=== PATIENT | male | born 1985 | race Caucasian/White ===

== ENCOUNTER 2020-03-16 17:15 | Emergency (ER) | payer SELFPAY ==
[2020-03-16 17:36] VITALS: BP 167/96; PULSE 79; RESP 16; TEMP 37.2; O2SAT 99
--- NOTE | 2020-03-16 17:52 | ED.UPPEXIN ---
HPI - Extremity Injury (Upper) General Chief Complaint: Extremity Injury, Upper Stated Complaint: injury Time Seen by Provider: 03/16/20 17:41 Source: patient and RN notes reviewed Mode of arrival: ambulatory Limitations: no limitations History of Present Illness HPI narrative: Patient presents today with an approximately 1 year history of pain at the base of his left thumb. 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 At the end of the workday, he does report some tingling to the thumb. He currently rates his pain 3/10, which increases with usage. He has not sought treatment prior to today. He is occasionally taking Tylenol at home for pain without relief. MD complaint: injury to: left and finger Related Data Allergies Allergy/AdvReac Type Severity Reaction Status Date / Time No Known Allergies Allergy Verified 03/16/20 17:39 Review of Systems Review of Systems: Narrative: CONSTITUTIONAL: Denies body aches, fever, chills, or sweats. EYES: Denies visual changes, redness, or discharge. ENT: Denies rhinorrhea, congestion, sore throat, or otalgia. CARDIOVASCULAR: Denies chest pain, palpitations, or edema. RESPIRATORY: Denies cough or dyspnea. GASTROINTESTINAL: Denies abdominal pain, nausea, vomiting, or diarrhea. GENITOURINARY: Denies dysuria or hematuria. SKIN: Denies rash, itching, or wounds. MUSCULOSKELETAL: Denies back pain, or myalgia.+ Pain in the left thumb NEUROLOGIC: Denies headache, numbness, tingling, or weakness. PSYCH: Denies depression or anxiety. PMFSH Social History Social History Gender identity (if verbalized by the patient): Male Comments At time of signature, I have reviewed and agree with nursing past medical, surgical, social and family history unless otherwise noted. Please see nursing chart for further information. There is no relevant family history pertinent to the presenting complaint Exam Narrative: Exam Narrative: GENERAL: Well-appearing, well-nourished, and in no acute distress. HEAD: Normocephalic, atraumatic. EYES: EOMI. No redness or drainage. Conjunctivae normal. ENT: Mucous membranes pink and moist. NECK: Normal AROM. CHEST: No respiratory distress. EXTREMITIES: Left first finger: Tenderness to the dorsum of the finger at the MCP. Pain increases with passive and active range of motion. Scant edema noted. No color change. No erythema or ecchymosis noted. Distal sensation intact. Capillary refill normal. SKIN: Warm, dry, no rash. Capillary refill normal. Normal skin turgor. NEURO: No focal deficits. Alert and oriented x3. Gait steady. PSYCH: Normal affect. No signs of depression or anxiety. Course Vital Signs Vital signs: Vital Signs Temperature 98.9 F 03/16/20 17:36 Pulse Rate 79 03/16/20 17:36 Respiratory Rate 16 03/16/20 17:36 Blood Pressure 167/96 H 03/16/20 17:36 Pulse Oximetry 99 03/16/20 17:36 Temperature 98.9 F 03/16/20 17:36 Pulse Rate 79 03/16/20 17:36 Respiratory Rate 16 03/16/20 17:36 Blood Pressure 167/96 H 03/16/20 17:36 Pulse Oximetry 99 03/16/20 17:36 Reviewed. Pt has been instructed to follow up with his PCP regarding his elevated blood pressure today. MDM - Extremity Injury (Upper) Differential Diagnosis Differential diagnosis: Likely other (Tendinitis, arthritis, ganglion cyst) Critical Care Time Critical Care Time Critical Care Time: No Discharge Plan Discharge Clinical Impression: Tendinitis of finger of left hand Patient Disposition: Home, Self-Care Condition: Stable Instructions: Tendinitis (ED) Additional Instructions: Your symptoms are likely due to tendinitis. Please take the prednisone as directed. Take Aleve or ibuprofen at home for pain and swelling. Follow-up with your
== END 2020-03-16 18:00 | disposition home or self-care (01) ==
PROVIDERS: Emergency Provider Nurse Practitioner
DX: M77.9 Enthesopathy, unspecified (principal)
CPT/HCPCS: 99213; G0463

== ENCOUNTER 2021-04-08 16:47 | Emergency (ER) | payer SELFPAY ==
[2021-04-08 16:57] VITALS: BP 136/85; PULSE 95; RESP 18; TEMP 36.8; O2SAT 100
--- NOTE | 2021-04-08 17:07 | ED.GENADULT ---
HPI - General Adult General Chief complaint: Dental/Oral Stated complaint: Roof mouth Swollen,Fever Time Seen by Provider: 04/08/21 17:07 Source: patient and RN notes reviewed Mode of arrival: ambulatory Limitations: no limitations History of Present Illness HPI narrative: 35-year-old male presents with complaints of LT upper dental and roof pain with swelling for the past 7 days. Felipe reports increasing swelling, pain, redness to roof of mouth, and tactile fever the last 24 hours. Hydrocodone (last 3 days ago) and Ibuprofen (last today) without relief. Denies any drainage. No jaw swelling. No neck swelling. No limitation with speaking or swallowing. Has history of dental caries. Has not seen a dentist recently. No dental trauma. Exacerbating factors consist of eating and drinking hot and spicy items. No relieving factors. No dentures or bridges. Tolerating liquids well. Remains active. The patient reports he have not been diagnosed with COVID-19. The patient reports he was tested for COVID-19 on 04/08/21 with NEGATIVE results. The patient reports he is not waiting for the results of a COVID-19 lab test. The patient reports he do not have chills, weakness, or fatigue. The patient reports he do not have a new or worsening cough or shortness of breath. Denies chest pain. The patient reports he do not have any rhinorrhea, congestion, loss of taste or smell, sore throat, nausea, vomiting, abdominal pain, and diarrhea. Denies recent traveling. Denies concerns for COVID-19 or exposures. At this time, patient is not suspected of having COVID-19. Some parts of this dictation were generated by voice recognition software and may contain typographical and/or grammatical inaccuracies. Related Data Allergies Allergy/AdvReac Type Severity Reaction Status Date / Time No Known Allergies Allergy Verified 04/08/21 16:54 Review of Systems Review of Systems: Narrative: CONSTITUTIONAL: Complains of tactile fever. Denies chills, sweats. EYES: Denies visual changes, redness, discharge. ENT: Denies rhinorrhea, congestion, sore throat, otalgia. Complains of LT upper dental and roof pain, swelling. CARDIOVASCULAR: Denies chest pain, palpitations, edema. RESPIRATORY: Denies dyspnea, wheezing, cough. GASTROINTESTINAL: Denies abdominal pain, nausea, vomiting, diarrhea. SKIN: Denies rash or itching. MUSCULOSKELETAL: Denies acute back pain, joint pain, or myalgia. NEUROLOGIC: Denies numbness or focal weakness. PSYCHIATRIC: Denies anxiety or depression. All systems reviewed & are unremarkable except as noted in HPI and below. 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 resulted in surgery per Felipe Cash Spontaneous pneumothorax Left lung-chest tube Surgical History Surgical History (Updated 04/08/21 @ 17:51 by MUMTAZ Mercado) History of chest tube placement History of tympanostomy X3 Family History Family History (Updated 04/08/21 @ 17:51 by MUMTAZ Mercado) Father , Committed suicide Depression Mother Hypertension Social History Social History (Updated 04/08/21 @ 17:52 by MUMTAZ Mercado) Smoking packs per day: 0.45 Smoking cigarettes per day: 9.0 Years smoked: 15 Smoking pack-years: 6.75 Smoking status: Current every day smoker Tobacco type: cigarettes Second hand tobacco smoke exposure: No Alcohol intake: current Substance use: current Substance use type: marijuana Living arrangements: with family Occupation/Education: occupation Gender identity (if verbalized by the patient): Male Sexual Orientation (if Verbalized by the Patient): Straight or Heterosexual Comments At time of signature, agree with nurse past medical, surgical, social, and family history. There is no relevant family history pertinent to the
== END 2021-04-08 17:38 | disposition home or self-care (01) ==
PROVIDERS: Emergency Provider Nurse Practitioner Family
DX: K05.10 Chronic gingivitis, plaque induced (principal); K02.9 Dental caries, unspecified; F17.210 Nicotine dependence, cigarettes, uncomplicated
CPT/HCPCS: 99213; G0463

== ENCOUNTER 2021-04-15 16:57 | Inpatient (IN) | payer SELFPAY ==
--- NOTE | ~2021-04-15 | US_ITS ---
EXAMINATION: US renal BI DATE: 04/17/2021 11:20 INDICATION: Acute kidney injury. TECHNIQUE: Multiple ultrasound grayscale images of the kidneys were obtained. COMPARISON: CT abdomen and pelvis 04/15/2021 FINDINGS: The right kidney measures 11.5 x 5.4 x 5.1 cm. The left kidney measures 11.3 x 5.0 x 7.0 cm. The kidn eys demonstrate increased parenchymal echogenicity. There is a 1.2 cm cyst in left kidney. There is n o hydronephrosis. The bladder is normal. IMPRESSION: 1. Increased renal parenchymal echogenicity, consistent with nonspecific nephropathy. Reviewed, dictated and finalized at location B. IMPRESSION: 1. Increased renal parenchymal echogenicity, consistent with nonspecific nephr opathy.
--- NOTE | ~2021-04-15 | XR_ITS ---
EXAMINATION: XR abdomen/kub 1V DATE: 04/17/2021 10:58 INDICATION: Abdominal bloating. C. difficile colitis. TECHNIQUE: A supine view of the abdomen on 2 radiographs was obtained. COMPARISON: CT abdomen and pelvis 04/15/2021 FINDINGS: There are no dilated loops of bowel. There is fold thickening in the colon at the splenic f lexure and in the sigmoid colon. There are phleboliths in the pelvis. IMPRESSION: 1. Fold thickening in the colon at the splenic flexure and in the sigmoid colon, consistent with coli tis. Reviewed, dictated and finalized at location A. IMPRESSION: 1. Fold thickening in the colon at the splenic flexure and in the sigmoid colon , consistent with colitis.
--- NOTE | ~2021-04-15 | CT_ITS ---
EXAMINATION: CT abdomen pelvis w con DATE: 04/15/2021 20:53 INDICATION: Left lower quadrant pain. TECHNIQUE: Computed tomography (CT) of the abdomen and pelvis was performed with 100 cc Omnipaque 350 intravenous contrast. The dose-length product was 289.68 mGy-cm. Automated exposure control and iter ative reconstruction technique were employed. COMPARISON: CT dated 10/20/2014 FINDINGS: There is paraseptal emphysema of the lingula. Otherwise, lung bases unremarkable. Heart siz e normal. No significant pleural or pericardial effusion. The liver, spleen, pancreas, adrenal glands are unremarkable. There are low-density lesions in both kidneys, most likely benign cysts. Gallbladd er is present. There is abnormal thickening of the descending and to a greater extent sigmoid colon a nd rectum, consistent with colitis. No obstruction. No free air or free fluid. Small hiatal hernia wi th mild thickening of the distal esophagus, suspicious for sequela of reflux esophagitis. IMPRESSION: 1. Abnormal thickening of the descending colon, sigmoid colon and rectum, consistent with colitis, mo st likely infectious or inflammatory. 2: Small hiatal hernia with thickening of the distal esophagus, suspicious for esophagitis. Reviewed, dictated and finalized at location A. IMPRESSION: 1. Abnormal thickening of the descending colon, sigmoid colon and rectum, consi stent with colitis, most likely infectious or inflammatory. 2: Small hiatal hernia with thickening of the distal esophagus, suspicious for esophagitis.
[2021-04-15 17:05] VITALS: BP 134/81; PULSE 110; RESP 18; TEMP 37.6; O2SAT 98
[2021-04-15 17:20] LABS: Basophils Absolute Auto 0.1 K/mm3 (0.0-0.1); Basophils Percent Auto 0.6 % (0.2-1.2); Eosinophils Absolute Auto 0.1 K/mm3 (0-0.3); Eosinophils Percent Auto 0.7 % (0-4.4); Hemoglobin 16.3 g/dL (14.0-18.0); Immature Granulocyte Percent A 0.5 % (0-0.5); Lymphocytes Absolute Auto 1.65 K/mm3 (0.9-3.2); Lymphocytes Percent Auto 8.9 % (18.3-44.2); Mean Corpuscular Hemoglobin 31.3 pg (26-34); Mean Corpuscular Volume 92.1 fl (80-100); Mean Platelet Volume 9.6 fl (7.4-10.4); Monocytes Absolute Auto 1.6 K/mm3 (0.1-0.6); Monocytes Percent Auto 8.3 % (2.6-8.5); Platelet Count Result 386 k/mm3 (150-375); Red Blood Count 5.21 M/mm3 (4.6-6.20); Red Cell Distribution Width 12.9 % (11.5-14.5); White Blood Count 18.6 K/mm3 (4.5-10.0)
[2021-04-15 17:32] LABS: Alanine Aminotransferase 17 U/L (4-50); Albumin Level 3.9 g/dL (3.5-5.1); Alkaline Phosphatase 74 U/L (38-126); Anion Gap 8 mmol/L (8-16); Aspartate Amino Transferase 34 U/L (17-59); Bilirubin,Total 0.4 mg/dL (0.2-1.3); Blood Urea Nitrogen 16 mg/dL (9-20); Calcium 9.3 mg/dL (8.4-10.2); Carbon Dioxide 24 mmol/L (22-30); Chloride 105 mmol/L (98-107); Estimated CRCL calculation 77 ml/min; Estimated Glomerular Filt Rate > 60; Glucose 112 mg/dL (75-110); Lipase 55 U/L (23-300); Potassium 4.2 mmol/L (3.4-5.0); Sodium 137 mmol/L (137-145)
[2021-04-15 18:04] LABS: Add Urine Microscopic? YES; Appearance Urine Cloudy (Clear); Bacteria Urine Trace /hpf; Bilirubin Urine 1+ (Negative); Blood Urine 3+ (Negative); Color Urine Amber (Yellow); Glucose Urine UA Negative (Negative); Ketones Urine Trace mg/dL (Negative); Leukocyte Esterase Ur Trace LEU/UL (Negative); Mucus Urine Heavy /lpf; Nitrate Urine Negative (Negative); Protein Urine 3+ mg/dL (Negative); RBC Urine >75 /hpf (0-2); Specific Grav Ur 1.038 (1.001-1.035); WBC Urine 51-75 /hpf
[2021-04-15 20:10] VITALS: BP 146/77; PULSE 97; RESP 20; O2SAT 100
[2021-04-15] MEDS: SODIUM CHLORIDE 0.9% IV 1,000 ML 999 ML IV CONT (20:38)
[2021-04-15 21:51] VITALS: BP 146/77; PULSE 99; RESP 18; O2SAT 100
[2021-04-15 22:13] VITALS: TEMP 39.4
--- NOTE | 2021-04-15 22:34 | ED.GENADULT ---
HPI - General Adult General Chief complaint: Abdominal Pain Stated complaint: fever Time Seen by Provider: 04/15/21 20:09 History of Present Illness HPI narrative: Patient is a 35-year-old male who presents ER with abdominal pain and fever. Ongoing over the last week and persistently worsening. Couple weeks ago patient injured the roof of his mouth while eating a piece of miller. He then developed some ulcerations as well as some acid reflux symptoms in his chest. He been started on some amoxicillin by an urgent care at that time. Reports that oral lesions healed on their own. He developed some severe lower abdominal pain over the last couple days and has pain with moving. Denies any diarrhea but has pressure going down into his buttock. No chest pain or chest pressure. No alleviating factors. Related Data Allergies Allergy/AdvReac Type Severity Reaction Status Date / Time No Known Allergies Allergy Verified 04/16/21 01:33 Review of Systems Review of Systems: All systems reviewed & are unremarkable except as noted in HPI and below Constitutional: Constitutional: Reports chills, Reports fever(s) and Denies weakness ENT: Denies nasal congestion and Denies sore throat Gastrointestinal: Gastrointestinal: Reports abdominal pain, Reports heartburn and Reports nausea Genitourinary: Genitourinary: Denies hematuria, Denies dysuria and Denies urinary frequency [facility] Past Medical History Medical History (Updated 04/16/21 @ 06:17 by Phil Mario MD) Ganglion cyst Left wrist Pyloric stenosis in pediatric patient Was surgical correction at 2 months of age Smoker Spontaneous pneumothorax Surgical History Surgical History (Updated 04/16/21 @ 06:15 by Phil Mario MD) History of chest tube placement Left chest History of partial colectomy History of tympanostomy X3 Family History Family History Father , Committed suicide Depression Mother Hypertension Social History Social History Smoking packs per day: 1 Smoking cigarettes per day: 20.0 Years smoked: 15 Smoking pack-years: 15.00 Smoking status: Former smoker Tobacco type: cigarettes Second hand tobacco smoke exposure: No Alcohol intake: current Drinks per week: 12 Substance use: current Substance use type: marijuana Last use: 04/05/2021 Gender identity (if verbalized by the patient): Male Spiritual care concerns: No Exam Narrative: Exam Narrative: GENERAL: Uncomfortable-appearing, well-nourished, and in no acute distress. HEAD: Normocephalic, atraumatic. ENT: Mucous membranes moist. No oral ulcerations. NECK: Supple. CHEST: Clear to auscultation. No respiratory distress. HEART: Tachycardic and regular. Normal peripheral pulses. ABDOMEN: Soft, tender to palpation diffusely with left lower quadrant guarding and moderate tenderness., nondistended, normal active bowel sounds. EXTREMITIES: Normal range of motion. No edema. SKIN: Warm, dry, no rash. NEURO: Alert and oriented x3. PSYCH: Normal mood and affect. Course Course Emergency Course: Admit to hospitalist service. IV antibiotics ordered. Morphine for pain. Patient verbalized understanding of diagnosis and treatment plan. Vital Signs Vital signs: Vital Signs Temperature 99.7 F H 04/15/21 17:05 Pulse Rate 110 H 04/15/21 17:05 Respiratory Rate 18 04/15/21 17:05 Blood Pressure 134/81 04/15/21 17:05 Pulse Oximetry 98 04/15/21 17:05 Temperature 98.4 F 04/16/21 05:40 Pulse Rate 105 H 04/16/21 05:40 Respiratory Rate 20 04/16/21 05:40 Blood Pressure 125/75 04/16/21 05:40 Pulse Oximetry 98 04/16/21 05:40 Medical Decision Making Vital Signs Vital Signs: Vital Signs Temperature 99.7 F H 04/15/21 17:05 Pulse Rate 110 H 04/15/21 17:05 Respiratory Rate 18 04/15/21 17:05 Blood Pressure 134/81 0
[2021-04-15] MEDS: PANTOPRAZOLE SODIUM IV 40 MG VIAL IV PUSH (22:45)
[2021-04-15] MEDS: MORPHINE SULFATE (*CRX) 4 MG/ML INJ IV PUSH (22:45)
[2021-04-15 23:52] VITALS: BP 140/89; PULSE 107; RESP 20; TEMP 39.6; O2SAT 100
[2021-04-16] VITALS (9 sets, daily range): BP systolic 102–125; BP diastolic 55–75; PULSE 101–109; RESP 16–22; TEMP 36.9–39.2; O2SAT 98–99
[2021-04-16] MEDS: SODIUM CHLORIDE 0.9% IV 1,000 ML 125 ML IV CONT ×4 (00:46→20:34)
[2021-04-16] MEDS: KETOROLAC 30 MG/ML VIAL (*BKC) IV PUSH (00:51)
[2021-04-16] MEDS: ONDANSETRON INJ 4 MG/2 ML VIAL IV PUSH ×5 (00:51→20:44)
--- NOTE | 2021-04-16 01:15 | PC.NURSE ---
This patient, Felipe Stanton, was admitted to 3 [facility] Surg Room 325-01. Patient/family oriented to hospital policies and general routines including ID bracelet, bed and alarms, visiting hours, pain management, procedures, bathroom and other care routines, personal items, smoking policy, room service/diet, and visiting hours. Information on how to activate the Rapid Response Team has been discussed. Patient/Family are encouraged to report perceived risks to care and to ask questions if they do not understand what they are told or what they should do.
[2021-04-16] MEDS: MORPHINE SULFATE (*CRX) 4 MG/ML INJ IV PUSH ×3 (02:14→08:37)
--- NOTE | 2021-04-16 02:47 | PM.IMHP ---
H&P: HPI History of Present Illness Date/Time: 04/16/21 03:30 Chief Complaint: Abdominal pain Narrative: 35-year-old previously healthy male who presented to the ER with abdominal pain for 2 weeks. The patient reports that approximately 2 weeks ago he began having generalized abdominal pain associated with vomiting and chills. His fever at home was a high as 101.5. When he initially developed vomiting he reported that he threw up some vague in in it traumatized the roof of his mouth and he had a ulceration on the roof of his mouth. He went to urgent care 8 days ago and was prescribed Augmentin. He reports that he still has several days of Augmentin to take but he he reports that the antibiotic seemed to make him even more nauseated. The antibiotics have not helped with his fevers or chills. He has not been able to eat or drink anything in the last 24 hours. He reports generalized abdominal pain that is worse with movement. He reports that he feels as if he is constipated and will go to the bathroom and strain. When he strains he passes loose brown stool. He only passes a small amount of stool. He reports that after he strains for a bit he will occasionally get out a small amount of blood with his stool. He reports that he has severe abdominal and rectal pain at the time she tries to have a bowel movement. After he has a bowel movement his pain will ease up briefly. He has having numerous stools a day. He denies any recent travel, camping or known ill contacts. The only antibiotics that he has taken were the ones that prescribed after his symptoms had started. He reports that he will occasionally have difficulty and have to strain to urinate. This is been a problem that is been ongoing for the last year or more. He denies any gross hematuria but has been told numerous times in the past that he has microscopic hematuria he reports that he has insurance but still cannot afford to go to specialist. His he reports that he will occasionally have a dysuria but again this is a longstanding issue. He has been tested multiple times for STDs. He reports that his ex-girlfriend was recently diagnosed with Trichomonas. He denies any IV drug use or high risk sexual activity. He has been tested for HIV in the past and has been found to be negative. He denies any sore throat, cough, congestion, chest pain or shortness of breath. He denies any family history of ulcer colitis or Crohn's. Review of Systems Review of Systems: Narrative: 12 systems were reviewed with pertinent positives and negatives per HPI. Except as documented in the HPI, all other systems were reviewed and are negative. [facility]LY [facility], [facility] Past Medical History Medical History Ganglion cyst Left wrist Smoker Spontaneous pneumothorax Surgical History Surgical History (Updated 04/16/21 @ 08:23 by Sheila Zambrano DO) History of chest tube placement Left chest History of partial colectomy (~2017) Due to hemorrhoid surgery with complications resulting in severe blood loss and blood transfusion History of tympanostomy X3 Pyloric stenosis in pediatric patient Myotomy at 2 months of age Family History Family History Father , Committed suicide Depression Mother Hypertension Social History Social History (Updated 04/16/21 @ 08:28 by Sheila Zambrano DO) Social History: He is single and lives alone. His ex-girlfriend recently moved nearby and they have a 9-year-old daughter in common. 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 He drinks a 12 pack of beer a week. He has smoked a pack of cigarettes per day since the age of 20. He will occasionally snort cocaine. He will occasionally smoke marijuana. He denies any IV drug use. He does not have a primary care physician. He does not have advanced directives in place. Smoking packs per day: 1 Smoking cigarettes per
[2021-04-16] MEDS: NICOTINE (*PBKC) 14 MG PATCH 1 PATCH TRANSDERM (04:42)
[2021-04-16 06:13] LABS: Hematocrit 44.4 % (42.0-52.0); Hemoglobin 14.7 g/dL (14.0-18.0); Mean Corpuscular HGB Conc 33.1 g/dl (32-36); Mean Corpuscular Hemoglobin 30.4 pg (26-34); Mean Corpuscular Volume 91.9 fl (80-100); Mean Platelet Volume 10.2 fl (7.4-10.4); Platelet Count Result 314 k/mm3 (150-375); Red Blood Count 4.83 M/mm3 (4.6-6.20); Red Cell Distribution Width 12.9 % (11.5-14.5); White Blood Count 16.5 K/mm3 (4.5-10.0)
[2021-04-16 06:24] LABS: Anion Gap 7 mmol/L (8-16); Blood Urea Nitrogen 15 mg/dL (9-20); Calcium 8.6 mg/dL (8.4-10.2); Carbon Dioxide 22 mmol/L (22-30); Chloride 105 mmol/L (98-107); Estimated CRCL calculation 66 ml/min; Estimated Glomerular Filt Rate 58; Glucose 105 mg/dL (75-110); Potassium 3.9 mmol/L (3.4-5.0); Sodium 134 mmol/L (137-145)
[2021-04-16 06:52] LABS: Band Neutrophils Percent 9 % (0-6); Eosinophils Absolute Manual 0.16 K/mm3 (0.02-0.5); Eosinophils Percent Manual 1 % (0-4); Lymphocytes Absolute Manual 1.32 K/mm3 (1.1-4.5); Monocytes Absolute Manual 1.48 K/mm3 (0.1-0.90); Monocytes Percent Manual 9 % (3-9); Neutrophils Absolute Manual 13.53 K/mm3 (1.3-6.7); Neutrophils Percent Manual 73 % (46-73); Platelet Estimate Adequate (Adequate); Total Cells Counted 100
--- NOTE | 2021-04-16 09:03 | PM.IMPN ---
Progress Note: A&P Assessment and Plan (1) Sepsis: Qualifiers: Sepsis acute organ dysfunction status: without acute organ dysfunction Sepsis type: sepsis due to unspecified organism Qualified Code(s): A41.9 - Sepsis, unspecified organism Code(s): A41.9 - Sepsis, unspecified organism Status: Acute Assessment and Plan: Sepsis present on admission with fever, tachycardia, and leukocytosis. Sepsis likely due to colitis and or urinary tract infection. Colitis is much more likely than UTI. The patient received fluid resuscitation in the ER and continued IV fluids 125 cc/hr. Blood cultures and urine cultures are pending. Stool cultures were obtained, Cryptosporidium, Giardia and C diff. Patient has been initially started on empiric antibiotic therapy with Zosyn. Scheduled Tylenol Q6hr, and Ibuprofen as needed for fever. He has Manilla vs morphine available as needed for pain. Continue monitoring vital signs. (2) Bacteriuria with pyuria: Code(s): R82.71 - Bacteriuria; R82.81 - Pyuria Status: Acute Assessment and Plan: Patient has exposure to Trichamonas from a recent sexual partner that he was not treated for. Could have Urethritis from Trich vs UTI. Pending urine cultures and trich testing. Will start Metronidazole 500 mg Q12hrs for 7 days. Continue IV Zosyn for Colitis and coverage for UTI Continue monitoring. (3) Colitis: Code(s): K52.9 - Noninfective gastroenteritis and colitis, unspecified Status: Acute Assessment and Plan: Given the presence of report of oral lesions, esophagitis, and colitis is certainly possible that the patient may have inflammatory bowel disease/Crohn's. However, given his acute presentation infectious colitis is more likely with Esophagitis from vomiting. Stool cultures pending, patient was recently on Augmentin, could have caused C. diff Continue IV Protonix BID for esophagitis. Given the severity of the patient's pain will slowly advance diet as tolerated. GI Consultation will be place for further evaluation, recommendations Continue monitoring. GIs input will be appreciated. (4) Esophagitis: Code(s): K20.90 - Esophagitis, unspecified without bleeding Status: Acute Assessment and Plan: Could be from vomiting throughout the last 1-2 weeks causing esophagitis vs underlying Crohn's. On IV PPI BID. GI Consultation will be place for further evaluation, recommendations Continue monitoring. GIs input will be appreciated. (5) Hematochezia: Code(s): K92.1 - Melena Status: Acute Assessment and Plan: Patient had episode of vomiting today and saw some bright red blood. He states he has not had any blood in his vomit over the last 1-2 weeks since he has been vomiting. He did get a dose of Lovenox at 0200 this morning. Hematochezia could be due to Lovenox and acute esophagitis. Will discontinue Lovenox at this time and start SCDs for DVT prophylaxis (6) Exposure to trichomonas: Code(s): Z20.2 - Contact with and (suspected) exposure to infections with a predominantly sexual mode of transmission Status: Acute Assessment and Plan: Getting Trich testing. Will start Treatment of Trich with Metronidazole 500 mg Q12hrs for 7 days given exposure. Time Spent With Patient Time with patient: 25 - 35 minutes Subjective Date/time seen: 04/16/21 09:03 Interval history: Date of service 04/16/21: The patient reports having a fever right now, having body aches, fatigue. He still having intermittent abdominal pain, watery diarrhea. He had nausea this morning with an episode of vomiting after drinking some orange juice. He does report a headache but believes is due to his fever. Does report some neck stiffness, but states he was sleeping in a weird position. He is able to turn his head in both directions and touch his chin to his chest without any issues
[2021-04-16] MEDS: ACETAMINOPHEN 325 MG TABLET 650 MG PO ×2 (09:15→21:34)
[2021-04-16] MEDS: IBUPROFEN 600 MG TABLET PO ×2 (10:03→16:44)
[2021-04-16] MEDS: metroNIDAZOLE 250 MG TABLET 500 MG PO ×2 (10:55→20:31)
[2021-04-16] MEDS: PANTOPRAZOLE SODIUM IV 40 MG VIAL IV PUSH ×2 (10:56→20:31)
[2021-04-16 13:05] LABS: Hematocrit 44.6 % (42.0-52.0); Hemoglobin 15.3 g/dL (14.0-18.0)
[2021-04-16 13:15] LABS: Anion Gap 8 mmol/L (8-16); Blood Urea Nitrogen 17 mg/dL (9-20); Calcium 8.7 mg/dL (8.4-10.2); Carbon Dioxide 22 mmol/L (22-30); Chloride 104 mmol/L (98-107); Estimated CRCL calculation 58 ml/min; Estimated Glomerular Filt Rate 49; Glucose 121 mg/dL (75-110); Potassium 4.3 mmol/L (3.4-5.0); Sodium 134 mmol/L (137-145)
[2021-04-16] MEDS: MORPHINE SULFATE (*CRX) 2 MG/ML INJ IV PUSH ×2 (16:48→20:44)
[2021-04-17] MEDS: MORPHINE SULFATE (*CRX) 2 MG/ML INJ IV PUSH ×6 (00:50→22:20)
[2021-04-17] MEDS: ONDANSETRON INJ 4 MG/2 ML VIAL IV PUSH ×2 (00:51→04:22)
[2021-04-17] MEDS: HYDROcodone/acetaminophen (*CRX) 5-325 MG TABLET 1 TAB PO ×4 (04:22→19:42)
[2021-04-17] MEDS: SODIUM CHLORIDE 0.9% IV 1,000 ML 125 ML IV CONT (05:18)
[2021-04-17 05:39] LABS: Hematocrit 39.8 % (42.0-52.0); Hemoglobin 13.6 g/dL (14.0-18.0); Mean Corpuscular HGB Conc 34.2 g/dl (32-36); Mean Corpuscular Hemoglobin 30.6 pg (26-34); Mean Corpuscular Volume 89.6 fl (80-100); Platelet Count Result 299 k/mm3 (150-375); Red Blood Count 4.44 M/mm3 (4.6-6.20); Red Cell Distribution Width 12.8 % (11.5-14.5); White Blood Count 17.5 K/mm3 (4.5-10.0)
[2021-04-17 05:49] LABS: Anion Gap 7 mmol/L (8-16); Blood Urea Nitrogen 19 mg/dL (9-20); Carbon Dioxide 19 mmol/L (22-30); Chloride 107 mmol/L (98-107); Estimated CRCL calculation 58 ml/min; Estimated Glomerular Filt Rate 49; Glucose 114 mg/dL (75-110); Potassium 3.9 mmol/L (3.4-5.0); Sodium 133 mmol/L (137-145)
[2021-04-17 06:00] VITALS: BP 103/56; PULSE 53; RESP 22; TEMP 36.8; O2SAT 96
[2021-04-17 06:24] LABS: Band Neutrophils Percent 9 % (0-6); Lymphocytes Absolute Manual 3.85 K/mm3 (1.1-4.5); Monocytes Absolute Manual 2.45 K/mm3 (0.1-0.90); Monocytes Percent Manual 14 % (3-9); Neutrophils Percent Manual 55 % (46-73); Platelet Estimate Adequate (Adequate); Total Cells Counted 100
[2021-04-17] MEDS: NICOTINE (*PBKC) 14 MG PATCH 1 PATCH TRANSDERM (08:04)
[2021-04-17] MEDS: PANTOPRAZOLE SODIUM IV 40 MG VIAL IV PUSH ×2 (08:05→21:20)
[2021-04-17] MEDS: metroNIDAZOLE 250 MG TABLET 500 MG PO (08:05)
[2021-04-17 09:20] VITALS: O2SAT 96
[2021-04-17] MEDS: ACETAMINOPHEN 325 MG TABLET 650 MG PO ×3 (11:44→23:38)
--- NOTE | 2021-04-17 11:58 | PM.IMPN ---
Progress Note: A&P Assessment and Plan (1) Sepsis: Qualifiers: Sepsis type: sepsis due to unspecified organism Sepsis acute organ dysfunction status: without acute organ dysfunction Qualified Code(s): A41.9 - Sepsis, unspecified organism Code(s): A41.9 - Sepsis, unspecified organism Status: Acute Assessment and Plan: Sepsis present on admission with fever, tachycardia, and leukocytosis. Sepsis likely due to colitis and or urinary tract infection. Colitis is much more likely than UTI. The patient received fluid resuscitation in the ER and continued IV fluids 75 cc/hr. Blood cultures negative to date Urine culture shows no growth Positive C diff, IV antibiotics were switched- D/C IV Zosyn (04/17/21), PO Vancomycin 500 mg Q6hrs and IV Metronidazole 500 mg IV Q8hrs for severe C. diff colitis infection Stool cultures were obtained and pending, Cryptosporidium, Giardia and etc Fevers trending down, 1644 04/16/21 was 101.6F, HR nontachycardic, low normal BP, normal oxygenation and respiration rate Scheduled Tylenol Q6hr, and Ibuprofen as needed for fever. He has [place] vs morphine available as needed for pain. Continue monitoring vital signs. (2) Colitis: Code(s): K52.9 - Noninfective gastroenteritis and colitis, unspecified Status: Acute Assessment and Plan: C. diff colitis. Was recently on Augmentin, but could also have inflammatory bowel disease/Crohn's. However, given his acute presentation infectious colitis is more likely with Esophagitis from vomiting. Positive C diff Stool cultures pending Continue IV Protonix BID for esophagitis. Given the severity of the patient's pain will slowly advance diet as tolerated. GI Consultation will be place for further evaluation, recommendations Continue monitoring. GIs input will be appreciated. (3) Bacteriuria with pyuria: Code(s): R82.71 - Bacteriuria; R82.81 - Pyuria Status: Acute Assessment and Plan: Urine culture negative, no UTI (4) Esophagitis: Code(s): K20.90 - Esophagitis, unspecified without bleeding Status: Acute Assessment and Plan: Could be from vomiting throughout the last 1-2 weeks causing esophagitis vs underlying Crohn's. On IV PPI BID. GI Consultation will be place for further evaluation, recommendations Continue monitoring. GIs input will be appreciated. (5) Exposure to trichomonas: Code(s): Z20.2 - Contact with and (suspected) exposure to infections with a predominantly sexual mode of transmission Status: Acute Assessment and Plan: Patient has exposure to Trichamonas from a recent sexual partner that he was not treated for. Could have Urethritis from Trich vs UTI. Urine cultures negative Trich testing, pending Switched from PO Metroniazole for Trich to IV Metronidazole 500 mg Q8hrs for treatment of severe C. diff infection. Will treat for trich as well Continue monitoring. (6) Symptom of blood in vomit: Code(s): K92.0 - Hematemesis Status: Acute Assessment and Plan: Patient had episode of vomiting 04/16/21 and saw some bright red blood. He states he has not had any blood in his vomit over the last 1-2 weeks since he has been vomiting. He did get a dose of Lovenox at 0200 this morning. Hematochezia could be due to Lovenox and acute esophagitis. Will discontinue Lovenox at this time and start SCDs for DVT prophylaxis No more blood seen. Resolved. Subjective Date/time seen: 04/17/21 11:58 Interval history: Date of service 04/17/21: The patient states he is feeling only slightly better. Still having a watery bowel movement once an hour. No improvement of that at this time. Patient does not have a fever right now, but states he has been having them but it is improved from when he came in. He has been drinking, not eating to much. He has been hungry, but is scared to eat since he vomited yesterday
[2021-04-17 14:00] VITALS: BP 117/71; PULSE 94; RESP 16; TEMP 36.4; O2SAT 99
[2021-04-17] MEDS: VANCOMYCIN ORAL 500 MG/10 ML SYRUP PO ×2 (14:17→18:52)
[2021-04-17] MEDS: SODIUM CHLORIDE 0.9% IV 1,000 ML 75 ML IV CONT (14:17)
[2021-04-17] MEDS: metroNIDAZOLE 500 MG/ISO 100ML 500 MG/100 ML BAG 100 MG IVPB ×2 (14:19→21:19)
--- NOTE | 2021-04-17 16:52 | WPDGICN ---
Assessment and Plan Assessment and plan (1) Clostridium difficile colitis: Code(s): A04.72 - Enterocolitis due to Clostridium difficile, not specified as recurrent Status: Acute Assessment and Plan: new diagnosis and can explain symptom continue with iv flagyl and oral vancomycin, avoid other systemic antibiotics he recently used augmentin (2) Abdominal pain: Code(s): R10.9 - Unspecified abdominal pain Status: Acute Assessment and Plan: liquid diet for now continue to monitor (3) Esophagitis: Code(s): K20.90 - Esophagitis, unspecified without bleeding Status: Acute Assessment and Plan: probably from ongoing n/v in setting of severe c diff colitis supportive care (4) Nausea and vomiting in adult: Code(s): R11.2 - Nausea with vomiting, unspecified Status: Acute Assessment and Plan: antiemetic prn (5) Sepsis: Qualifiers: Sepsis type: sepsis due to unspecified organism Sepsis acute organ dysfunction status: without acute organ dysfunction Qualified Code(s): A41.9 - Sepsis, unspecified organism Code(s): A41.9 - Sepsis, unspecified organism Status: Acute GI Consult Note Consult date/time: 04/17/21 16:52 Reason for consult: n/v, C diff colitis HPI: Felipe Stanton is a 35 year old male healthy man who about 3 weeks ago completed augmentin that was prescribed at urgent care for soreness in mouth . Last few days ago started with progressive lower abdominal pain with fever as high as 101.5 then intractable nausea and vomiting for 2 days, unable to eat much of anything with loss of appetite and also diarrhea. CT scan a/p reviewed that showed colitis and possible esophagitis. Stool positive for C diff and started on vancomycin and flagyl. Had leukocytosis wbc 17k and renal failure with creat 1.7. Never had scopes or similar infection. Review of Systems Constitutional: Constitutional: Reports chills Comments: fever Eyes: Eyes: Denies blurry vision ENT: Reports Normal hearing present Cardiovascular: Cardiovascular: Denies chest pain Respiratory: Respiratory: Denies dyspnea Gastrointestinal: Gastrointestinal: Reports abdominal pain, Reports diarrhea, Reports nausea and Reports vomiting Genitourinary: Genitourinary: Denies hematuria Musculoskeletal: Musculoskeletal: Denies neck pain Integumentary/Breasts: Skin/Breast: Denies dry skin Neurologic: Denies numbness Psychiatric: Psychiatric: Reports no additional psychiatric complaints PMFSH Past Medical History Medical History (Updated 04/17/21 @ 16:57 by Juan Jose Smith MD) Abdominal pain Clostridium difficile colitis Ganglion cyst Left wrist Nausea and vomiting in adult Smoker Spontaneous pneumothorax Surgical History Surgical History (Updated 04/16/21 @ 08:23 by Sheila Zambrano DO) History of chest tube placement Left chest History of partial colectomy (~2017) Due to hemorrhoid surgery with complications resulting in severe blood loss and blood transfusion History of tympanostomy X3 Pyloric stenosis in pediatric patient Myotomy at 2 months of age Family History Family History Father , Committed suicide Depression Mother Hypertension Social History Social History (Updated 04/16/21 @ 08:28 by hSeila Zambrano DO) Social History: He is single and lives alone. His ex-girlfriend recently moved nearby and they have a 9-year-old daughter in common. 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 He drinks a 12 pack of beer a week. He has smoked a pack of cigarettes per day since the age of 20. He will occasionally snort cocaine. He will occasionally smoke marijuana. He denies any IV drug use. He does not have a primary care physician. He does not have advanced directives in place. Smoking packs per day: 1 Smoking cigarettes per day: 20.0 Years smoked: 15 Smo
[2021-04-17 22:00] VITALS: BP 117/66; PULSE 89; RESP 16; TEMP 36.4; O2SAT 96
[2021-04-18] MEDS: VANCOMYCIN ORAL 500 MG/10 ML SYRUP PO ×5 (00:18→23:25)
[2021-04-18] MEDS: MORPHINE SULFATE (*CRX) 2 MG/ML INJ IV PUSH ×2 (03:10→06:07)
[2021-04-18] MEDS: SODIUM CHLORIDE 0.9% IV 1,000 ML 75 ML IV CONT ×2 (03:23→18:00)
[2021-04-18 06:00] VITALS: BP 119/63; PULSE 85; RESP 18; TEMP 37.2; O2SAT 100
[2021-04-18 06:05] LABS: Hematocrit 37.6 % (42.0-52.0); Hemoglobin 12.6 g/dL (14.0-18.0); Mean Corpuscular HGB Conc 33.5 g/dl (32-36); Mean Corpuscular Hemoglobin 30.7 pg (26-34); Mean Corpuscular Volume 91.5 fl (80-100); Mean Platelet Volume 9.7 fl (7.4-10.4); Platelet Count Result 292 k/mm3 (150-375); Red Blood Count 4.11 M/mm3 (4.6-6.20); Red Cell Distribution Width 13.2 % (11.5-14.5); White Blood Count 17.8 K/mm3 (4.5-10.0)
[2021-04-18] MEDS: ACETAMINOPHEN 325 MG TABLET 650 MG PO (06:07)
[2021-04-18] MEDS: ONDANSETRON INJ 4 MG/2 ML VIAL IV PUSH (06:18)
[2021-04-18 06:30] LABS: Anion Gap 5 mmol/L (8-16); Blood Urea Nitrogen 12 mg/dL (9-20); Calcium 8.2 mg/dL (8.4-10.2); Carbon Dioxide 24 mmol/L (22-30); Chloride 107 mmol/L (98-107); Estimated CRCL calculation 77 ml/min; Estimated Glomerular Filt Rate > 60; Glucose 102 mg/dL (75-110); Potassium 3.6 mmol/L (3.4-5.0); Sodium 136 mmol/L (137-145)
[2021-04-18 06:38] LABS: Band Neutrophils Percent 1 % (0-6); Eosinophils Absolute Manual 0.17 K/mm3 (0.02-0.5); Eosinophils Percent Manual 1 % (0-4); Lymphocytes Absolute Manual 2.49 K/mm3 (1.1-4.5); Monocytes Absolute Manual 0.89 K/mm3 (0.1-0.90); Monocytes Percent Manual 5 % (3-9); Neutrophils Absolute Manual 14.24 K/mm3 (1.3-6.7); Neutrophils Percent Manual 79 % (46-73); Total Cells Counted 100
[2021-04-18 06:40] LABS: Platelet Estimate Adequate (Adequate)
[2021-04-18] MEDS: metroNIDAZOLE 500 MG/ISO 100ML 500 MG/100 ML BAG 100 MG IVPB ×3 (07:39→21:03)
[2021-04-18] MEDS: PANTOPRAZOLE SODIUM IV 40 MG VIAL IV PUSH ×2 (07:57→21:03)
[2021-04-18] MEDS: NICOTINE (*PBKC) 14 MG PATCH 1 PATCH TRANSDERM (07:57)
--- NOTE | 2021-04-18 09:59 | PM.IMPN ---
Progress Note: A&P Assessment and Plan (1) Clostridium difficile colitis: Code(s): A04.72 - Enterocolitis due to Clostridium difficile, not specified as recurrent Status: Acute Assessment and Plan: Stool cultures feel that he is positive for C diff which is consistent with his symptoms as he was recently on Augmentin -continue oral vancomycin. He is also on Flagyl due to Trichomonas -advanced diet as tolerated. He is unhappy with his liquid diet and would like to advance to something different. I will try low-fiber diet today. I discussed if his abdominal pain worsens with this, we will have to go back to a liquid diet -GI consulted -WBC 17.8, hopefully this will start to improve. If it doesn't improve with vanc (started 04/17/21), may consider Dificid (2) Sepsis: Qualifiers: Sepsis type: sepsis due to unspecified organism Sepsis acute organ dysfunction status: without acute organ dysfunction Qualified Code(s): A41.9 - Sepsis, unspecified organism Code(s): A41.9 - Sepsis, unspecified organism Status: Acute Assessment and Plan: Improving. Present on admission with fever, tachycardia, and leukocytosis. -Sepsis likely due to colitis above -continue IV fluids as the patient has been having multiple episodes of diarrhea and his creatinine improved with IV fluids overnight -Blood cultures negative to date -continue oral vancomycin for C diff Positive C diff, IV antibiotics were switched- (Zosyn discontinued 04/17/2021) -continue Tylenol as needed -He has [place] vs morphine available as needed for pain as well but try to avoid narcotics if possible (3) Bacteriuria with pyuria: Code(s): R82.71 - Bacteriuria; R82.81 - Pyuria Status: Acute Assessment and Plan: Urine culture negative, no UTI (4) Esophagitis: Code(s): K20.90 - Esophagitis, unspecified without bleeding Status: Acute Assessment and Plan: Could be from vomiting throughout the last 1-2 weeks causing esophagitis vs underlying Crohn's. -On IV PPI BID. -follow-up with GI (5) Exposure to trichomonas: Code(s): Z20.2 - Contact with and (suspected) exposure to infections with a predominantly sexual mode of transmission Status: Acute Assessment and Plan: Patient has exposure to Trichamonas from a recent sexual partner that he was not treated for. -Urine cultures negative -Trich testing is pending (6) Symptom of blood in vomit: Code(s): K92.0 - Hematemesis Status: Acute Assessment and Plan: Patient had episode of vomiting 04/16/21 and saw some bright red blood. He states he has not had any blood in his vomit over the last 1-2 weeks since he has been vomiting. He did get a dose of Lovenox during that time. Hematochezia could be due to Lovenox and acute esophagitis. -could be Julieta-Silva tear or gastritis from infection. Follow-up with GI (7) LESLEY (acute kidney injury): Code(s): N17.9 - Acute kidney failure, unspecified Status: Acute Assessment and Plan: Patient's creatinine was elevated yesterday likely due to dehydration and it is now back in normal limits -will continue IV fluids at this time -ultrasound of the kidneys reviewed Time Spent With Patient Time with patient: 25 - 35 minutes Subjective Date/time seen: 04/18/21 09:59 Interval history: Pt is a 35-year-old male here for C diff colitis. Patient was seen today and continues to have abdominal pain and diarrhea. He states he has had liquid diarrhea every hour on the hour overnight. He says he thinks it is getting a little more thick but it still very liquidy. He has no lightheadedness, dizziness, chest pain, fevers, chills, dysuria, or leg swelling. He had some nausea this morning but would like to try more than liquids. Review of Systems Review of Systems: All systems reviewed & are unremarkable except as noted in HPI and
[2021-04-18 14:00] VITALS: BP 112/57; PULSE 76; RESP 20; TEMP 36.6; O2SAT 100
[2021-04-18] MEDS: HYDROcodone/acetaminophen (*CRX) 5-325 MG TABLET 1 TAB PO ×2 (14:42→20:56)
--- NOTE | 2021-04-18 18:15 | WPDGIPROGNO ---
Progress Note: A&P Assessment and Plan (1) Sepsis: Qualifiers: Sepsis type: sepsis due to unspecified organism Sepsis acute organ dysfunction status: without acute organ dysfunction Qualified Code(s): A41.9 - Sepsis, unspecified organism Code(s): A41.9 - Sepsis, unspecified organism Status: Acute Assessment and Plan: from severe c diff colitis today is feeling better but still with leukocytosis (2) Clostridium difficile colitis: Code(s): A04.72 - Enterocolitis due to Clostridium difficile, not specified as recurrent Status: Acute Assessment and Plan: on oral vanco and iv flagyl probitiocs as outpatient (3) LESLEY (acute kidney injury): Code(s): N17.9 - Acute kidney failure, unspecified Status: Acute Assessment and Plan: resolved today after medical treatment (4) Nausea and vomiting in adult: Code(s): R11.2 - Nausea with vomiting, unspecified Status: Acute Assessment and Plan: resolved (5) Esophagitis: Code(s): K20.90 - Esophagitis, unspecified without bleeding Status: Acute (6) Abdominal pain: Code(s): R10.9 - Unspecified abdominal pain Status: Acute Subjective Date/time seen: 04/18/21 18:15 Interval history: abdominal pain slowly getting better and tolerating diet, also less diarrhea today Review of Systems Review of Systems: All systems reviewed & are unremarkable except as noted in HPI and below Exam Const: General: comfortable and no acute distress HENMT: General nose exam: Normal nares present Eyes: General: appearance normal, both eyes and all related structures Neck: Neck: supple Resp: Auscultation: clear to auscultation bilaterally Cardio: Rate: regular rate GI: GI Palp: Yes Soft to palpation and No Guarding due to palpation present (GI) Auscultation: normal bowel sounds Other: less tender today Skin: General skin exam: normal color Neuro: Speech: normal speech Motor exam (neuro): Normal motor muscle tone present throughout Extrem: General: normal to inspection Objective Data Vital Signs Vital Signs: Vital Signs - 24 hr 04/17/21 22:00 04/18/21 06:00 04/18/21 14:00 Temperature 97.5 F L 99 F 97.9 F Pulse Rate 89 85 76 Respiratory Rate 16 18 20 Blood Pressure 117/66 119/63 112/57 L Pulse Oximetry 96 100 100 Intake/Output Intake/Output: Intake & Output 04/15/21 04/16/21 04/17/21 04/18/21 23:59 23:59 23:59 23:59 Intake Total 1100 5080 2878 2400 Output Total 350 Balance 1100 4730 2878 2400 Meds/Results Medications: Active Medications Generic Name Dose Route Start Last Admin Trade Name Freq PRN Reason Stop Dose Admin Acetaminophen 650 mg 04/18/21 10:35 Acetaminophen 325 Mg Tablet PO Q6H PRN Pain 1-3 Hydrocodone Bitart/Acetaminophen 1 tab 04/15/21 23:31 04/18/21 14:42 Hydrocodone/Acetaminophen (*Crx) 5-325 Mg Tablet PO 1 tab Q4H PRN Administration Pain Rated 4-6 Sodium Chloride 1,000 mls @ 125 mls/hr 04/15/21 23:35 04/18/21 18:00 Normal Saline Iv IV CONT 75 mls/hr .Q8H KATIE Administration Metronidazole 500 mg in 100 mls @ 100 mls/hr 04/17/21 14:00 04/18/21 14:43 Flagyl 500 Mg/Iso Soln 100 Ml IVPB 100 mls/hr Q8HR KATIE Administration Morphine Sulfate 2 mg 04/16/21 09:05 04/18/21 06:07 Morphine Sulfate (*Crx) 2 Mg/Ml Inj IV PUSH 2 mg Q2H PRN Administration Pain Rated 7-10 Nicotine 1 patch 04/16/21 04:35 04/18/21 07:57 Nicotine (*Pbkc) 14 Mg Patch TRANSDERM 1 patch QAM KATIE Administration Ondansetron HCl 4 mg 04/15/21 23:31 04/18/21 06:18 Ondansetron Inj 4 Mg/2 Ml Vial IV PUSH 4 mg Q4H PRN Administration Nausea Pantoprazole Sodium 40 mg 04/16/21 09:00 04/18/21 07:57 Pantoprazole Sodium Iv 40 Mg Vial IV PUSH 40 mg Q12HR KATIE Administration Phenyleph/Shark Oil/Min Oil/Petrol 1 applic 04/18/21 10:38 Phenyleph/Mineral Oil/Petrolat Ointment 5
[2021-04-18] MEDS: PHENYLEPH/MINERAL OIL/PETROLAT OINTMENT 57 GM 1 APPLIC RECTAL (21:02)
[2021-04-18 21:50] VITALS: BP 131/72; PULSE 104; RESP 16; TEMP 36.9; O2SAT 100
[2021-04-18] MEDS: ALPRAZolam (*CRX) 0.25 MG TABLET PO (21:55)
[2021-04-19] MEDS: metroNIDAZOLE 500 MG/ISO 100ML 500 MG/100 ML BAG 100 MG IVPB ×3 (05:25→21:55)
[2021-04-19] MEDS: HYDROcodone/acetaminophen (*CRX) 5-325 MG TABLET 1 TAB PO ×3 (05:26→22:00)
[2021-04-19] MEDS: VANCOMYCIN ORAL 500 MG/10 ML SYRUP PO ×4 (05:26→23:09)
[2021-04-19 06:00] VITALS: BP 118/80; PULSE 86; RESP 16; TEMP 35.8; O2SAT 98
[2021-04-19 06:04] LABS: Basophils Absolute Auto 0.1 K/mm3 (0.0-0.1); Basophils Percent Auto 0.5 % (0.2-1.2); Eosinophils Absolute Auto 0.2 K/mm3 (0-0.3); Eosinophils Percent Auto 1.1 % (0-4.4); Hematocrit 39.2 % (42.0-52.0); Hemoglobin 13.3 g/dL (14.0-18.0); Immature Granulocyte Absolute 0.16 K/mm3 (0.00-0.031); Lymphocytes Absolute Auto 2.24 K/mm3 (0.9-3.2); Lymphocytes Percent Auto 13.9 % (18.3-44.2); Mean Corpuscular HGB Conc 33.9 g/dl (32-36); Mean Corpuscular Hemoglobin 31.1 pg (26-34); Mean Corpuscular Volume 91.8 fl (80-100); Monocytes Absolute Auto 1.1 K/mm3 (0.1-0.6); Monocytes Percent Auto 6.7 % (2.6-8.5); Neutrophils Absolute Auto 12.4 K/mm3 (1.3-6.7); Neutrophils Percent Auto 76.8 % (45.5-73.1); Platelet Count Result 347 k/mm3 (150-375); Red Blood Count 4.27 M/mm3 (4.6-6.20); Red Cell Distribution Width 13.2 % (11.5-14.5); White Blood Count 16.1 K/mm3 (4.5-10.0)
[2021-04-19 06:08] LABS: Alanine Aminotransferase 10 U/L (4-50); Alkaline Phosphatase 50 U/L (38-126); Anion Gap 9 mmol/L (8-16); Aspartate Amino Transferase 23 U/L (17-59); Bilirubin,Total 0.2 mg/dL (0.2-1.3); Blood Urea Nitrogen 10 mg/dL (9-20); Calcium 8.5 mg/dL (8.4-10.2); Carbon Dioxide 25 mmol/L (22-30); Chloride 105 mmol/L (98-107); Estimated CRCL calculation 83 ml/min; Estimated Glomerular Filt Rate > 60; Glucose 93 mg/dL (75-110); Potassium 3.7 mmol/L (3.4-5.0); Sodium 139 mmol/L (137-145)
[2021-04-19] MEDS: PANTOPRAZOLE SODIUM IV 40 MG VIAL IV PUSH ×2 (09:44→21:55)
[2021-04-19] MEDS: NICOTINE (*PBKC) 14 MG PATCH 1 PATCH TRANSDERM (09:44)
[2021-04-19] MEDS: SODIUM CHLORIDE 0.9% IV 1,000 ML 75 ML IV CONT (09:46)
--- NOTE | 2021-04-19 10:16 | PM.IMPN ---
Progress Note: A&P Assessment and Plan (1) Clostridium difficile colitis: Code(s): A04.72 - Enterocolitis due to Clostridium difficile, not specified as recurrent Status: Acute Assessment and Plan: Stool cultures positive for C diff which is consistent with his symptoms as he was recently on Augmentin for dental infx -continue oral vancomycin. He is also on Flagyl due to Trichomonas -Continue low fiber diet, d/c fluids today. -GI consulted -WBC 16.1. If it doesn't improve with vanc (started 04/17/21), may consider Dificid -May discharge in 1-2 days if pt WBC continues to improve, abdominal pain improves, and diarrhea lessens. Pt agreeable to this plan (2) Sepsis: Qualifiers: Sepsis type: sepsis due to unspecified organism Sepsis acute organ dysfunction status: without acute organ dysfunction Qualified Code(s): A41.9 - Sepsis, unspecified organism Code(s): A41.9 - Sepsis, unspecified organism Status: Acute Assessment and Plan: Improving. Present on admission with fever, tachycardia, and leukocytosis. -Sepsis likely due to colitis above -will stop IV fluids and see how he does -Blood cultures negative to date -continue oral vancomycin (Zosyn discontinued 04/17/2021) -continue Tylenol as needed -will stop morphine. continue tylenol for pain and norco as needed (3) Bacteriuria with pyuria: Code(s): R82.71 - Bacteriuria; R82.81 - Pyuria Status: Acute Assessment and Plan: Urine culture negative, no UTI (4) Esophagitis: Code(s): K20.90 - Esophagitis, unspecified without bleeding Status: Acute Assessment and Plan: Could be from vomiting throughout the last 1-2 weeks causing esophagitis vs underlying Crohn's. -On IV PPI BID. -follow-up with GI (5) Exposure to trichomonas: Code(s): Z20.2 - Contact with and (suspected) exposure to infections with a predominantly sexual mode of transmission Status: Acute Assessment and Plan: Patient has exposure to Trichamonas from a recent sexual partner that he was not treated for. -Urine cultures negative -Trich testing is positive. educated to continue flagyl and he states his girlfriend is being treated as well (6) Symptom of blood in vomit: Code(s): K92.0 - Hematemesis Status: Acute Assessment and Plan: Patient had episode of vomiting 04/16/21 and saw some bright red blood. He states he has not had any blood in his vomit over the last 1-2 weeks since he has been vomiting. He did get a dose of Lovenox during that time. Hematochezia could be due to Lovenox and acute esophagitis. -could be Julieta-Silva tear or gastritis from infection. Follow-up with GI (7) [place]ES[place] (acute kidney injury): Code(s): N17.9 - Acute kidney failure, unspecified Status: Acute Assessment and Plan: Patient's creatinine was elevated during his stay due to dehydration -will stop IV fluids at this time and see how he does with oral hydration overnight -ultrasound of the kidneys reviewed Subjective Date/time seen: 04/19/21 10:16 Interval history: Pt is a 35-year-old male here for C diff colitis. Patient was seen today and states he is doing better. he continues to have anal pain and diarrhea but it is finally getting better. He denies chills or fevers. he is tolerating his low fiber diet and drinking. He has no lightheadedness, dizziness, chest pain, fevers, chills, dysuria, or leg swelling. Discussed trich results and that he cannot drink [place] on flagyl. Exam Narrative: Exam Narrative: General: Well developed well nourished patient in NAD HEENT: normocephalic Neck: supple Neuro: Alert and oriented x4 CV:RRR Resp:CTA Abd: Soft, non distended. Pain to palpation to the lower quadrants (improved today). Positive bowel sounds Extremities: No swelling, erythema, or pain to palpation. Objective Data Vital Signs Vital Signs: Vi
[2021-04-19 14:00] VITALS: BP 111/62; PULSE 73; RESP 16; TEMP 36.1; O2SAT 99
--- NOTE | 2021-04-19 16:19 | WPDGIPROGNO ---
Progress Note: A&P Assessment and Plan (1) Sepsis: Qualifiers: Sepsis type: sepsis due to unspecified organism Sepsis acute organ dysfunction status: without acute organ dysfunction Qualified Code(s): A41.9 - Sepsis, unspecified organism Code(s): A41.9 - Sepsis, unspecified organism Status: Acute Assessment and Plan: from severe c diff colitis keep improving, still with leukocytosis (2) Clostridium difficile colitis: Code(s): A04.72 - Enterocolitis due to Clostridium difficile, not specified as recurrent Status: Acute Assessment and Plan: on oral vanco and iv flagyl less diarrhea, tolerating diet and overall feeling better probitiocs as outpatient (3) LESLEY (acute kidney injury): Code(s): N17.9 - Acute kidney failure, unspecified Status: Acute Assessment and Plan: resolved (4) Nausea and vomiting in adult: Code(s): R11.2 - Nausea with vomiting, unspecified Status: Acute Assessment and Plan: resolved (5) Esophagitis: Code(s): K20.90 - Esophagitis, unspecified without bleeding Status: Acute Assessment and Plan: on ppi (6) Abdominal pain: Code(s): R10.9 - Unspecified abdominal pain Status: Acute Subjective Date/time seen: 04/19/21 16:19 Interval history: slowly doing better and eating more, less diarrhea Review of Systems Review of Systems: All systems reviewed & are unremarkable except as noted in HPI and below Exam Const: General: comfortable and no acute distress HENMT: General nose exam: Normal nares present Eyes: General: appearance normal, both eyes and all related structures Neck: Neck: no JVD Resp: Auscultation: clear to auscultation bilaterally Cardio: Rate: regular rate Rhythm: regular rhythm GI: Inspection: non-distended GI Palp: Yes Soft to palpation Auscultation: normal bowel sounds Skin: General skin exam: normal color Neuro: General: gait normal Speech: normal speech Extrem: General: normal to inspection Psych: Mental Status: mental status grossly normal Affect: normal affect Objective Data Vital Signs Vital Signs: Vital Signs - 24 hr 04/18/21 21:50 04/19/21 06:00 04/19/21 14:00 Temperature 98.5 F 96.5 F L 97.0 F L Pulse Rate 104 H 86 73 Respiratory Rate 16 16 16 Blood Pressure 131/72 118/80 111/62 Pulse Oximetry 100 98 99 Intake/Output Intake/Output: Intake & Output 04/16/21 04/17/21 04/18/21 04/19/21 23:59 23:59 23:59 23:59 Intake Total 5080 2878 2990 1720 Output Total 350 Balance 4730 2878 2990 1720 Meds/Results Medications: Active Medications Generic Name Dose Route Start Last Admin Trade Name Freq PRN Reason Stop Dose Admin Acetaminophen 650 mg 04/19/21 10:21 Acetaminophen 325 Mg Tablet PO Q6H PRN Pain 1-5 Hydrocodone Bitart/Acetaminophen 1 tab 04/19/21 10:21 04/19/21 13:06 Hydrocodone/Acetaminophen (*Crx) 5-325 Mg Tablet PO 1 tab Q4H PRN Administration Pain Rated 6-10 Metronidazole 500 mg in 100 mls @ 100 mls/hr 04/17/21 14:00 04/19/21 13:07 Flagyl 500 Mg/Iso Soln 100 Ml IVPB 100 mls/hr Q8HR KATIE Administration Nicotine 1 patch 04/16/21 04:35 04/19/21 09:44 Nicotine (*Pbkc) 14 Mg Patch TRANSDERM 1 patch QAM KATIE Administration Ondansetron HCl 4 mg 04/15/21 23:31 04/18/21 06:18 Ondansetron Inj 4 Mg/2 Ml Vial IV PUSH 4 mg Q4H PRN Administration Nausea Pantoprazole Sodium 40 mg 04/16/21 09:00 04/19/21 09:44 Pantoprazole Sodium Iv 40 Mg Vial IV PUSH 40 mg Q12HR KATIE Administration Phenyleph/Shark Oil/Min Oil/Petrol 1 applic 04/18/21 10:38 04/18/21 21:02 Phenyleph/Mineral Oil/Petrolat Ointment 57 Gm RECTAL 1 applic DAILY PRN Administration rectal pain Vancomycin HCl 500 mg 04/17/21 12:00 04/19/21 13:06 Vancomycin Oral 500 Mg/10 Ml Syrup PO 500 mg Q6HR KATIE Administration Radiology Results: ITS Impressions
[2021-04-19 21:13] VITALS: O2SAT 98
[2021-04-19 22:00] VITALS: BP 127/81; PULSE 77; RESP 16; TEMP 36.2; O2SAT 100
[2021-04-20] MEDS: HYDROcodone/acetaminophen (*CRX) 5-325 MG TABLET 1 TAB PO (05:39)
[2021-04-20] MEDS: VANCOMYCIN ORAL 500 MG/10 ML SYRUP PO ×2 (05:39→12:35)
[2021-04-20] MEDS: metroNIDAZOLE 500 MG/ISO 100ML 500 MG/100 ML BAG 100 MG IVPB (05:39)
[2021-04-20 06:00] VITALS: BP 115/77; PULSE 77; RESP 20; TEMP 36.3; O2SAT 100
[2021-04-20 06:35] LABS: Basophils Absolute Auto 0.1 K/mm3 (0.0-0.1); Basophils Percent Auto 0.8 % (0.2-1.2); Eosinophils Absolute Auto 0.4 K/mm3 (0-0.3); Eosinophils Percent Auto 3.8 % (0-4.4); Hematocrit 36.5 % (42.0-52.0); Hemoglobin 12.6 g/dL (14.0-18.0); Immature Granulocyte Absolute 0.18 K/mm3 (0.00-0.031); Immature Granulocyte Percent A 1.8 % (0-0.5); Lymphocytes Absolute Auto 2.65 K/mm3 (0.9-3.2); Lymphocytes Percent Auto 26.3 % (18.3-44.2); Mean Corpuscular HGB Conc 34.5 g/dl (32-36); Mean Corpuscular Hemoglobin 30.9 pg (26-34); Mean Corpuscular Volume 89.5 fl (80-100); Mean Platelet Volume 9.8 fl (7.4-10.4); Monocytes Percent Auto 10.3 % (2.6-8.5); Neutrophils Absolute Auto 5.7 K/mm3 (1.3-6.7); Platelet Count Result 309 k/mm3 (150-375); Red Blood Count 4.08 M/mm3 (4.6-6.20); Red Cell Distribution Width 13.2 % (11.5-14.5); White Blood Count 10.1 K/mm3 (4.5-10.0)
[2021-04-20 06:44] LABS: Anion Gap 6 mmol/L (8-16); Blood Urea Nitrogen 13 mg/dL (9-20); Calcium 8.5 mg/dL (8.4-10.2); Carbon Dioxide 24 mmol/L (22-30); Chloride 110 mmol/L (98-107); Estimated CRCL calculation 101 ml/min; Estimated Glomerular Filt Rate > 60; Glucose 97 mg/dL (75-110); Magnesium 1.8 mg/dL (1.6-2.3); Potassium 3.2 mmol/L (3.4-5.0); Sodium 140 mmol/L (137-145)
[2021-04-20] MEDS: POTASSIUM CHLORIDE 20 MEQ TABLET 40 MEQ PO (09:02)
[2021-04-20] MEDS: PANTOPRAZOLE SODIUM IV 40 MG VIAL IV PUSH (09:03)
[2021-04-20] MEDS: MAGNESIUM OXIDE 400 MG TABLET PO (12:35)
--- NOTE | 2021-04-20 13:46 | PM.DS ---
DS: Admitting Diagnosis Admitting Diagnosis Admitting Diagnosis: Colitis DS: Discharge Diagnosis Discharge Diagnosis (1) Clostridium difficile colitis: Code(s): A04.72 - Enterocolitis due to Clostridium difficile, not specified as recurrent Status: Acute Assessment and Plan: Date of Admission 04/15/21 Date of Discharge 04/20/21 Mr. Stanton is a 35yo M who presented to the ED for evaluation of fever, abdominal pain, diarrhea. He described that he had recently been on Augmentin for a dental infection. CT abdomen/pelvis demonstrated abnormal thickening of the descending colon, sigmoid colon and rectum consistent with colitis as well as thickening of the distal esophagus, suspicious esophagitis. His stool was positive for C diff. He was started on oral vancomycin 04/17/2021 and treated with supportive care with IV hydration, antiemetics. GI was consulted and he was evaluated by Dr. Lee. He was started on pantoprazole. He had also recently been exposed to Trichomonas by sexual partner. He was started on Flagyl here after testing positive for Trichomonas. He did have a mild LESLEY with a Cr as elevated is 1.6, improved to 0.9 with IV hydration prior to discharge. Patient is feeling well and has only had 3 bowel movements today, much improved from days prior. He feels well enough to go home today. He is hemodynamically stable for discharge on 04/20/2021 with instructions to follow-up with his primary care. He is discharged with oral vancomycin and oral Flagyl to complete the course for treatment of C diff colitis and Trichomonas, respectively. (2) Sepsis: Qualifiers: Sepsis type: sepsis due to unspecified organism Sepsis acute organ dysfunction status: without acute organ dysfunction Qualified Code(s): A41.9 - Sepsis, unspecified organism Code(s): A41.9 - Sepsis, unspecified organism Status: Acute Assessment and Plan: Improving. Present on admission with fever, tachycardia, and leukocytosis. Source with C diff colitis. Blood cultures negative. (3) Bacteriuria with pyuria: Code(s): R82.71 - Bacteriuria; R82.81 - Pyuria Status: Acute Assessment and Plan: Urine culture negative, no UTI (4) Esophagitis: Code(s): K20.90 - Esophagitis, unspecified without bleeding Status: Acute Assessment and Plan: Could be from vomiting throughout the last 1-2 weeks causing esophagitis vs underlying Crohn's. Continue pantoprazole. (5) Exposure to trichomonas: Code(s): Z20.2 - Contact with and (suspected) exposure to infections with a predominantly sexual mode of transmission Status: Acute Assessment and Plan: Patient has exposure to Trichamonas from a recent sexual partner that he was not treated for. Test positive for Trichomonas. Continue Flagyl. (6) Symptom of blood in vomit: Code(s): K92.0 - Hematemesis Status: Acute Assessment and Plan: This is resolved. Patient had episode of vomiting 04/16/21 and saw some bright red blood. He states he has not had any blood in his vomit over the last 1-2 weeks since he has been vomiting. He did get a dose of Lovenox during that time. Hematochezia could be due to Lovenox and acute colitis. -Could be Julieta-Silva tear or gastritis from infection. Follow-up with GI (7) LESLEY (acute kidney injury): Code(s): N17.9 - Acute kidney failure, unspecified Status: Acute Assessment and Plan: Patient's creatinine was elevated during his stay due to dehydration. Resolved with IV hydration. DS: Summary Hospital Course Hospital Course: See above Time Spent with Patient Time attestat
[2021-04-20 14:00] VITALS: BP 135/86; PULSE 102; RESP 18; TEMP 36.3; O2SAT 100
--- NOTE | 2021-04-20 15:05 | PC.NURSE ---
Pt has removed his own IV. Pt is being discharged t this time. Discharge paperwork has been reviewed with pt and his S.O. Both exhibited good understanding, and had no questions. Pt chose to ambulate with his S.O to the front door.
== END 2021-04-20 15:00 | disposition home or self-care (01) | DRG 720 ==
LOC: ANHED 20:23 → ANH3MEDSUR 04-16 00:57
PROVIDERS: Emergency Medicine; Physician Assistant; Admitting Provider Internal Medicine; Emergency Provider Emergency Medicine; Visit Provider Physician Assistant
DX: A41.9 Sepsis, unspecified organism (principal); A04.72 Enterocolitis due to Clostridium difficile, not specified as recurrent; N17.9 Acute kidney failure, unspecified; K92.0 Hematemesis; E86.0 Dehydration; R82.71 Bacteriuria; R82.81 Pyuria; K20.90 Esophagitis, unspecified without bleeding; Z20.2 Contact with and (suspected) exposure to infections with a predominantly sexual mode of transmission; Z87.891 Personal history of nicotine dependence
CPT/HCPCS: 36415; 74018; 74177; 76775; 80048; 80053; 80076; 81001; 83690; 83735; 85014; 85018; 85025; 87015; 87040; 87045; 87046; 87086; 87269; 87272; 87324; 87427; 87491; 87591; 87661; 89055; 96361; 96365; 96366; 96374; 96375; 96376; 99285; A9270; C9113; G0378; G0379; J0131; J1885; J2270; J2405; J2543; J7030; Q9967

== ENCOUNTER 2022-12-10 10:50 | Emergency (ER) | payer BC, MEDICAID, SELFPAY ==
[2022-12-10 11:08] VITALS: BP 150/97; PULSE 86; RESP 16; TEMP 36.2; O2SAT 100
[2022-12-10 11:10] VITALS: BP 150/97; PULSE 86; RESP 16; TEMP 36.2; O2SAT 100
--- NOTE | 2022-12-10 11:42 | ED.GENADULT ---
HPI - General Adult General Chief complaint: Upper Respiratory Infection Stated complaint: loss of apetite,fatigue Time Seen by Provider: 12/10/22 11:43 Source: patient, RN notes reviewed and old records reviewed Mode of arrival: ambulatory Limitations: no limitations History of Present Illness HPI narrative: 37 year old male presents to [facility] with complaints of feeling dizzy, loss of appetite,nausea, fatigue, congestion,chest feels tight for the past 3 days,and states feels some dyspnea at times with exertion which started today. Patient denies any known fevers chills or sweats, denies any body aches. Patient reports that girlfriend has been ill with possible strep throat. Patient reports that he has been taking DayQuil for his symptoms MD complaint: dizzy,loss of appetite, fatigue congestion, chest feels tight, and dyspnea Onset (ago): day(s) (3) Treatments prior to arrival: other (DayQuil) Related Data Home Medications Medication Instructions Recorded Confirmed bupropion HCl 150 mg 24 hr tablet, 150 mg PO DAILY 12/10/22 12/10/22 extended release lisdexamfetamine 40 mg capsule 40 mg PO DAILY 12/10/22 12/10/22 (Vyvanse) Allergies Allergy/AdvReac Type Severity Reaction Status Date / Time No Known Allergies Allergy Verified 12/10/22 11:08 Review of Systems Review of Systems: CONSTITUTIONAL: Denies fever, chills, or sweats. EYES: Denies visual changes, redness, or discharge. ENT: Reports rhinorrhea, congestion, sore throat, or otalgia. CARDIOVASCULAR: Denies chest pain, palpitations, or edema. RESPIRATORY: Denies acute cough, some tightness of chest, and some BARILLAS GASTROINTESTINAL: Denies abdominal pain, reports nausea, no vomiting, or diarrhea. GENITOURINARY: Denies dysuria or hematuria. SKIN: Denies rash or itching. MUSCULOSKELETAL: Denies back pain, joint pain, or myalgia. NEUROLOGIC: Reports some mild headache, no numbness, or weakness.some dizziness PSYCHIATRIC: Positive for anxiety or depression. 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 His ex-girlfriend recently moved nearby and they have a 9-year-old daughter in common. 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 He drinks a 12 pack of beer a week. He has smoked a pack of cigarettes per day since the age of 20. He will occasionally snort cocaine. He will occasionally smoke marijuana. He denies any IV drug use. He does not have a primary care physician. He does not have advanced directives in place. Smoking packs per day: 1 Smoking cigarettes per day: 20.0 Years smoked: 15 Smoking pack-years: 15.00 Smoking status: Current every day smoker Tobacco type: cigarettes Alcohol intake: current Drinks per week: 12 Substance use: former Substance use type: marijuana Living arrangements: with family Occupation/Education: occupation Gender identity (if verbalized by the patient): Male Sexual Orientation (if Verbalized by the Patient): Straight or Heterosexual Spiritual care concerns: No Comments At time of signature, joslyn
== END 2022-12-10 12:15 | disposition home or self-care (01) ==
PROVIDERS: Emergency Provider Registered Nurse
DX: J06.9 Acute upper respiratory infection, unspecified (principal); R05.9 Cough, unspecified; Z20.818 Contact with and (suspected) exposure to other bacterial communicable diseases; F17.210 Nicotine dependence, cigarettes, uncomplicated
CPT/HCPCS: 87081; 87426; 87804; 87880; 99213; C9803; G0463

== ENCOUNTER 2022-12-16 04:52 | Emergency (ER) | payer BC, MEDICAID, SELFPAY ==
[2022-12-16 04:55] VITALS: BP 155/112; PULSE 96; RESP 16; TEMP 36.1; O2SAT 100
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
[2022-12-16 05:29] LABS: Appearance Urine Clear (Clear); Bilirubin Urine 1+ (Negative); Blood Urine 3+ (Negative); Color Urine Yellow (Yellow); Glucose Urine UA Negative (Negative); Ketones Urine Negative (Negative); Leukocyte Esterase Ur Negative LEU/UL (Negative); Nitrate Urine Negative (Negative); Protein Urine 3+ mg/dL (Negative); Specific Grav Ur >= 1.030 (1.001-1.035); Urobilinogen Urine 0.2 mg/dL (<2.0)
[2022-12-16 05:32] LABS: Bacteria Urine Trace /hpf; Mucus Urine Few /lpf; RBC Urine 51-75 /hpf (0-2); Squamous Epithelial Cell Urine Rare /hpf (Few); WBC Urine 16-20 /hpf
[2022-12-16 05:33] LABS: Add Urine Microscopic? YES
[2022-12-16 05:41] LABS: Amphetamine Screen Urine Positive (Negative); Barbiturate Screen Urine Negative (Negative); Benzodiazepines Screen Urine Negative (Negative); Cannabinoid Screen Urine Negative (Negative); Cocaine Screen Urine Negative (Negative); Methadone Screen Urine Negative (Negative); Opiate Screen Urine Negative (Negative); Phencyclidine Screen Urine Negative (Negative)
[2022-12-16 05:41] LABS: Basophils Absolute Auto 0.1 K/mm3 (0.0-0.1); Basophils Percent Auto 1.3 % (0.2-1.2); Eosinophils Absolute Auto 0.2 K/mm3 (0-0.3); Eosinophils Percent Auto 2.5 % (0-4.4); Hematocrit 51.8 % (42.0-52.0); Hemoglobin 17.9 g/dL (14.0-18.0); Immature Granulocyte Absolute 0.09 K/mm3 (0.00-0.031); Immature Granulocyte Percent A 1.1 % (0-0.5); Lymphocytes Absolute Auto 2.69 K/mm3 (0.9-3.2); Lymphocytes Percent Auto 31.9 % (18.3-44.2); Mean Corpuscular HGB Conc 34.6 g/dl (32-36); Mean Corpuscular Volume 92.5 fl (80-100); Mean Platelet Volume 9.9 fl (7.4-10.4); Monocytes Absolute Auto 0.7 K/mm3 (0.1-0.6); Monocytes Percent Auto 8.7 % (2.6-8.5); Neutrophils Absolute Auto 4.6 K/mm3 (1.3-6.7); Neutrophils Percent Auto 54.5 % (45.5-73.1); Platelet Count Result 302 k/mm3 (150-375); Red Cell Distribution Width 13.5 % (11.5-14.5); White Blood Count 8.4 K/mm3 (4.5-10.0)
[2022-12-16 05:52] LABS: Alanine Aminotransferase 28 U/L (6-50); Albumin Level 4.6 g/dL (3.5-5.1); Alkaline Phosphatase 63 U/L (38-126); Anion Gap 7 mmol/L (8-16); Aspartate Amino Transferase 33 U/L (17-59); Bilirubin,Total 0.6 mg/dL (0.2-1.3); Blood Urea Nitrogen 16 mg/dL (9-20); Carbon Dioxide 25 mmol/L (22-30); Chloride 106 mmol/L (98-107); Estimated CRCL calculation 67 ml/min; Estimated Glomerular Filt Rate 57; Glucose 98 mg/dL (65-110); Sodium 138 mmol/L (137-145)
== END 2022-12-16 06:05 | disposition home or self-care (01) ==
PROVIDERS: Emergency Provider Emergency Medicine
DX: R41.3 Other amnesia (principal); N17.9 Acute kidney failure, unspecified; R31.9 Hematuria, unspecified; F17.210 Nicotine dependence, cigarettes, uncomplicated; Z90.49 Acquired absence of other specified parts of digestive tract
CPT/HCPCS: 36415; 80053; 80307; 81001; 85025; 87086; 99283

== ENCOUNTER 2022-12-20 00:05 | Emergency (ER) | payer BC, SELFPAY ==
[2022-12-20] VITALS (12 sets, daily range): BP systolic 158–196; BP diastolic 101–117; PULSE 87–102; RESP 11–19; TEMP 36.8–36.9; O2SAT 100
--- NOTE | ~2022-12-20 | XR_ITS ---
Clinical Indication: Chest pain PA and lateral views of the chest: Comparison: 02/05/2018 Findings: The lungs are clear, without evidence of focal consolidation or pleural effusion. Cardiome diastinal silhouette is within normal limits. Bones and soft tissues are unremarkable. Impression: Normal chest. Reviewed, dictated and finalized at location . TRUST MANAGER Impression: Normal chest.
--- NOTE | 2022-12-20 00:08 | ECG_ITS ---
Measurements Intervals [place] Rate: 102 P: 66 TN: 164 QRS: 30 QRSD: 93 T: 65 QT: 331 QTc: 432 Interpretive Statements SINUS TACHYCARDIA BORDERLINE LEFTWARD AXIS ABNORMAL RHYTHM ECG NO PREVIOUS ECG AVAILABLE FOR COMPARISON Electronically Signed On 12-20-2022 14:45:59 MEDICAL LEGAL INVESTIGATOR by Reese Dotson M.D.
[2022-12-20 01:01] LABS: Basophils Absolute Auto 0.1 K/mm3 (0.0-0.1); Eosinophils Absolute Auto 0.2 K/mm3 (0-0.3); Eosinophils Percent Auto 1.5 % (0-4.4); Hematocrit 47.9 % (42.0-52.0); Hemoglobin 16.6 g/dL (14.0-18.0); Immature Granulocyte Absolute 0.04 K/mm3 (0.00-0.031); Immature Granulocyte Percent A 0.4 % (0-0.5); Lymphocytes Absolute Auto 2.65 K/mm3 (0.9-3.2); Lymphocytes Percent Auto 25.6 % (18.3-44.2); Mean Corpuscular HGB Conc 34.7 g/dl (32-36); Mean Corpuscular Hemoglobin 31.9 pg (26-34); Mean Corpuscular Volume 91.9 fl (80-100); Mean Platelet Volume 10.3 fl (7.4-10.4); Monocytes Absolute Auto 0.7 K/mm3 (0.1-0.6); Neutrophils Absolute Auto 6.7 K/mm3 (1.3-6.7); Neutrophils Percent Auto 64.5 % (45.5-73.1); Platelet Count Result 322 k/mm3 (150-375); Red Blood Count 5.21 M/mm3 (4.6-6.20); White Blood Count 10.4 K/mm3 (4.5-10.0)
[2022-12-20 01:16] LABS: INR 0.9; Prothrombin Time 12.2 Seconds (11.1-14.7)
[2022-12-20 01:16] LABS: Appearance Urine Clear (Clear); Bilirubin Urine Negative (Negative); Blood Urine 2+ (Negative); Color Urine Yellow (Yellow); Glucose Urine UA Negative (Negative); Ketones Urine Negative (Negative); Leukocyte Esterase Ur Negative LEU/UL (Negative); Nitrate Urine Negative (Negative); Protein Urine 3+ mg/dL (Negative); Specific Grav Ur 1.025 (1.001-1.035); Urobilinogen Urine 0.2 mg/dL (<2.0); pH Urine 6.5 (5.0-9.0)
[2022-12-20 01:17] LABS: Partial Thromboplastin Time 31.9 SECONDS (22.3-36.8)
[2022-12-20 01:20] LABS: Alanine Aminotransferase 29 U/L (6-50); Albumin Level 4.3 g/dL (3.5-5.1); Alkaline Phosphatase 62 U/L (38-126); Anion Gap 6 mmol/L (8-16); Aspartate Amino Transferase 37 U/L (17-59); Bilirubin,Total 0.7 mg/dL (0.2-1.3); Blood Urea Nitrogen 17 mg/dL (9-20); Calcium 8.7 mg/dL (8.4-10.2); Carbon Dioxide 27 mmol/L (22-30); Chloride 102 mmol/L (98-107); Estimated CRCL calculation 70 ml/min; Estimated Glomerular Filt Rate > 60; Glucose 91 mg/dL (65-110); Lipase 107 U/L (23-300); Potassium 3.5 mmol/L (3.4-5.0); Sodium 135 mmol/L (137-145)
[2022-12-20 01:20] LABS: Bacteria Urine Trace /hpf; Mucus Urine Rare /lpf; RBC Urine 51-75 /hpf (0-2)
[2022-12-20 01:35] LABS: Troponin I < 0.012 ng/mL (0.000-0.034)
[2022-12-20 01:57] LABS: Add Urine Microscopic? YES
[2022-12-20] MEDS: ASPIRIN 81 MG CHEWABLE TABLET 324 MG PO (02:42)
--- NOTE | 2022-12-20 03:20 | ED.CHESTPAIN ---
HPI - Chest Pain General Chief Complaint: Chest Pain Stated Complaint: high blood pressure Time Seen by Provider: 12/20/22 02:21 History of Present Illness HPI narrative: Patient who had recently been told that he has hypertension and possible kidney issues presents here because he had an episode of chest discomfort that worsens when he moves around started yesterday, and his blood pressure was high, so he was worried after he started googling things that can happen with high blood pressure, and came in. Denies any shortness of breath, nausea or vomiting, focal numbness or weakness. Related Data Home Medications Medication Instructions Recorded Confirmed bupropion HCl 150 mg 24 hr tablet, 150 mg PO DAILY 12/10/22 12/10/22 extended release lisdexamfetamine 40 mg capsule 40 mg PO DAILY 12/10/22 12/10/22 (Vyvanse) Allergies Allergy/AdvReac Type Severity Reaction Status Date / Time No Known Allergies Allergy Verified 12/10/22 11:08 Review of Systems Review of Systems: CONST: No fever. HEENT: No sore throat C/V: chest discomfort RESP: No cough GI: No abdominal pain : No dysuria. M/S: No joint pain. SKIN: No rash. NEURO: [No headache or focal numbness or weakness] PSYCH: [No depression] [facility] Past Medical History Medical History (Updated 12/20/22 @ 03:22 by Simona Philip MD) Abdominal pain Clostridium difficile colitis Ganglion cyst Left wrist Nausea and vomiting in adult Smoker Spontaneous pneumothorax Surgical History Surgical History (Updated 04/16/21 @ 08:23 by Sheila Zambrano DO) History of chest tube placement Left chest History of partial colectomy (~2017) Due to hemorrhoid surgery with complications resulting in severe blood loss and blood transfusion History of tympanostomy X3 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 His ex-girlfriend recently moved nearby and they have a 9-year-old daughter in common. 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 He drinks a 12 pack of beer a week. He has smoked a pack of cigarettes per day since the age of 20. He will occasionally snort cocaine. He will occasionally smoke marijuana. He denies any IV drug use. He does not have a primary care physician. He does not have advanced directives in place. Smoking packs per day: 1 Smoking cigarettes per day: 20.0 Years smoked: 15 Smoking pack-years: 15.00 Smoking status: Current every day smoker Tobacco type: cigarettes Alcohol intake: current Drinks per week: 12 Substance use: former Substance use type: marijuana Living arrangements: with family Occupation/Education: occupation Gender identity (if verbalized by the patient): Male Sexual Orientation (if Verbalized by the Patient): Straight or Heterosexual Spiritual care concerns: No Exam Narrative: EXAMINATION OF ORGAN SYSTEMS/BODY AREAS: Constitutional: Vital signs per nursing GENERAL:[No acute distress, non-toxic appearing.] HEAD: Normal with no signs of head trauma. EYES: EOMI, conjunctiva normal ENT: Hearing grossly intact LUNGS: Nonlabored breathing. HEART: [Regular rate and rhythm]. Normal pulses all extremities ABD: [Soft], [nontender to palpation] EXT: Normal range of motion SKIN: [No rashes or lesions.] NEURO: [Alert and oriented x 3. No gross focal sensory or strength deficits.] PSYCH: Normal affect Course Vital Signs Vital signs: Vital Signs Temperature 98.5 F 12/20/22 00:09 Pulse Rate 102 H 12/20/22 00:09 Respiratory Rate 18 12/20/22 00:09 Blood Pressure 196/117 H 12/20/22 00:09 Pulse Oximetry 100 12/20/22 00:09 Oxygen Delivery Room Air 12/20/22 00:09
[2022-12-20 04:34] LABS: Troponin I < 0.012 ng/mL (0.000-0.034)
== END 2022-12-20 03:50 | disposition home or self-care (01) ==
PROVIDERS: Emergency Medicine; Emergency Provider Emergency Medicine; PCP Emergency Medicine
DX: R07.89 Other chest pain (principal); I10 Essential (primary) hypertension; Z90.49 Acquired absence of other specified parts of digestive tract; F17.210 Nicotine dependence, cigarettes, uncomplicated; R00.0 Tachycardia, unspecified; R94.31 Abnormal electrocardiogram [ECG] [EKG]
CPT/HCPCS: 36415; 71046; 80053; 81001; 83690; 84484; 85025; 85610; 85730; 87086; 93005; 99284; A9270

== ENCOUNTER 2023-06-16 10:07 | Emergency (ER) | payer BC, SELFPAY ==
[2023-06-16 10:23] VITALS: BP 183/121; PULSE 100; RESP 18; TEMP 36.6; O2SAT 99
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
== END 2023-06-16 11:11 | disposition left against medical advice (07) ==
PROVIDERS: Emergency Provider Nurse Practitioner Family
DX: I16.0 Hypertensive urgency (principal); M79.671 Pain in right foot; F17.210 Nicotine dependence, cigarettes, uncomplicated; Z86.19 Personal history of other infectious and parasitic diseases
CPT/HCPCS: 73630; 99213; G0463

== ENCOUNTER 2023-08-14 11:12 | Outpatient (CLI) | payer BC, SELFPAY ==
[2023-08-14 12:53] LABS: Total Protein Urine Random 35 mg/dL
[2023-08-14 13:06] LABS: Albumin Level 4.2 g/dL (3.5-5.1); Anion Gap 5 mmol/L (8-16); Blood Urea Nitrogen 25 mg/dL (9-20); Carbon Dioxide 27 mmol/L (22-30); Chloride 103 mmol/L (98-107); Estimated Glomerular Filt Rate > 60; Glucose 95 mg/dL (65-110); Phosphorus 3.1 mg/dL (2.5-4.5); Potassium 3.9 mmol/L (3.4-5.0); Sodium 135 mmol/L (137-145)
[2023-08-14 13:11] LABS: Complement C3 111 mg/dL (88-165)
[2023-08-17 13:11] LABS: Alpha 1 Globulin 0.3 g/dL (0.2-0.3); Alpha 2 Globulin 0.6 g/dL (0.5-0.9); Beta 1 Globulin 0.4 g/dL (0.4-0.6); Gamma Globulin 0.9 g/dL (0.8-1.7); Protein, Total 6.5 g/dL (6.1-8.1)
[2023-08-19 20:14] LABS: Creatinine, Random Urine 92 mg/dL (20-320); Total Protein/Creatinine Ratio 283 mg/g creat (25-148)
[2023-08-20 09:21] LABS: Anti Glomerular Basement Memb <1.0 AI (<1.0)
[2023-08-20 09:49] LABS: ANCA Screen Negative (Negative)
== END 2023-08-14 11:13 | disposition home or self-care (01) ==
PROVIDERS: PCP Nurse Practitioner; Visit Provider Internal Medicine Nephrology
DX: R80.9 Proteinuria, unspecified (principal); I10 Essential (primary) hypertension; R31.29 Other microscopic hematuria
CPT/HCPCS: 36415; 80069; 82570; 83520; 84155; 84156; 84165; 84166; 86036; 86038; 86160; 86225

== ENCOUNTER 2023-09-30 08:48 | Emergency (ER) | payer BC, SELFPAY ==
--- NOTE | ~2023-09-30 | XR_ITS ---
Right Hand Technique: PA, oblique, and lateral views were obtained. Clinical History: Trauma Findings: There is a fracture at the base of the fifth metacarpal, minimally displaced. No definite i ntra-articular extension.. Joint spaces are preserved. Soft tissues are unremarkable. Impression: Transverse fracture the base of fifth metacarpal, nondisplaced. No definite intra-articular extension . Reviewed, dictated and finalized at location . T PRESERVER Impression: Transverse fracture the base of fifth metacarpal, nondisplaced. No definite int ra-articular extension.
[2023-09-30 08:57] VITALS: BP 151/91; PULSE 87; RESP 18; TEMP 36.9; O2SAT 100
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
== END 2023-09-30 09:53 | disposition home or self-care (01) ==
PROVIDERS: Emergency Provider Nurse Practitioner Family
DX: S62.346A Nondisplaced fracture of base of fifth metacarpal bone, right hand, initial encounter for closed fracture (principal); W01.0XXA Fall on same level from slipping, tripping and stumbling without subsequent striking against object, initial encounter; F17.210 Nicotine dependence, cigarettes, uncomplicated
CPT/HCPCS: 29125; 73130; 99214; A4565; G0463

== ENCOUNTER 2023-10-15 15:35 | Outpatient (CLI) | payer BC, SELFPAY ==
--- NOTE | ~2023-10-15 | XR_ITS ---
EXAM: XR hand RT min 3V DATE: 10/15/2023 15:51 HISTORY: F/U ON RIGHT BASE 5TH METACARAPL FX . COMPARISON: 09/30/2023. FINDINGS: Normal mineralization. Redemonstration of the comminuted fracture of the base of the right fifth metacarpal fracture, with increased displacement of the dominant fracture fragment. No new acu te fracture or dislocation. No lytic or blastic lesion. Joint spaces are maintained. No erosion or pe riosteal change. Soft tissues within normal limits. IMPRESSION: Increased displacement of the dominant fracture fragment in the comminuted fracture of th e base of the right fifth metacarpal. Reviewed, dictated and finalized at location K. AINABILITY COORDINATOR IMPRESSION: Increased displacement of the dominant fracture fragment in the com minuted fracture of the base of the right fifth metacarpal.
== END 2023-10-15 15:36 | disposition home or self-care (01) ==
PROVIDERS: PCP Plastic Surgery; Visit Provider Plastic Surgery
DX: S62.316D Displaced fracture of base of fifth metacarpal bone, right hand, subsequent encounter for fracture with routine healing (principal); X58.XXXD Exposure to other specified factors, subsequent encounter
CPT/HCPCS: 73130

== ENCOUNTER 2023-10-16 16:37 | Outpatient (CLI) | payer BC, SELFPAY ==
--- NOTE | ~2023-10-16 | CT_ITS ---
EXAMINATION: CT hand RT wo con DATE: 10/16/2023 16:54 INDICATION: Fracture of right fifth metacarpal. TECHNIQUE: Computed tomography (CT) of the right hand was performed without intravenous contrast. Aut omated exposure control and iterative reconstruction technique were employed. The dose-length product was 534.35 mGy-cm. COMPARISON: Right hand radiographs 10/15/2023, 09/30/2023 FINDINGS: There is a comminuted intra-articular fracture of base of fifth metacarpal. The main distal fracture fragment demonstrates impaction and 10 degrees palmar angulation. Early callus formation is noted. Other joint spaces are normal. IMPRESSION: 1. Healing comminuted fracture of base of fifth metacarpal. Reviewed, dictated and finalized at location A. OR VISUAL DESIGNER
== END 2023-10-16 16:38 | disposition home or self-care (01) ==
PROVIDERS: PCP Plastic Surgery; Visit Provider Plastic Surgery
DX: S62.316D Displaced fracture of base of fifth metacarpal bone, right hand, subsequent encounter for fracture with routine healing (principal); X58.XXXD Exposure to other specified factors, subsequent encounter
CPT/HCPCS: 73200

== ENCOUNTER 2023-12-01 11:34 | Outpatient (CLI) | payer BC, SELFPAY ==
--- NOTE | ~2023-12-01 | XR_ITS ---
Right Hand Technique: PA, oblique, and lateral views were obtained. Clinical History: Fifth metacarpal fracture COMPARISON: 10/15/2023 Findings: There is been routine interval partial healing of fractured the base of fifth metacarpal si nce prior exam. There is suspected bony bridging across portions of the fracture site. Soft tissues a re unremarkable. Impression: Routine interval partial healing of fractured the base of fifth metacarpal since prior exam. Reviewed, dictated and finalized at location M. WORKER Impression: Routine interval partial healing of fractured the base of fifth metacarpal sinc e prior exam.
== END 2023-12-01 11:35 | disposition home or self-care (01) ==
LOC: ANHIMG 11:38
PROVIDERS: PCP Plastic Surgery; Visit Provider Plastic Surgery
DX: S62.316D Displaced fracture of base of fifth metacarpal bone, right hand, subsequent encounter for fracture with routine healing (principal); X58.XXXD Exposure to other specified factors, subsequent encounter
CPT/HCPCS: 73130

== ENCOUNTER 2024-03-30 13:56 | Emergency (ER) | payer BC, SELFPAY ==
[2024-03-30 14:04] VITALS: BP 186/121; PULSE 93; RESP 18; TEMP 36.9; O2SAT 100
== END 2024-03-30 15:07 | disposition left against medical advice (07) ==
LOC: ANHED 15:11
DX: I10 Essential (primary) hypertension (principal)
CPT/HCPCS: 99199

== ENCOUNTER 2024-08-04 17:47 | Outpatient (CLI) | payer BC, SELFPAY ==
[2024-08-04 18:19] LABS: Anion Gap 5 mmol/L (4-12); Blood Urea Nitrogen 21 mg/dL (9-20); Calcium 9.2 mg/dL (8.4-10.2); Carbon Dioxide 26 mmol/L (22-30); Chloride 106 mmol/L (98-107); Estimated Glomerular Filt Rate 52; Glucose 96 mg/dL (65-110); Phosphorus 2.9 mg/dL (2.5-4.5); Potassium 4.6 mmol/L (3.4-5.0); Sodium 137 mmol/L (137-145)
== END 2024-08-04 17:48 | disposition home or self-care (01) ==
LOC: ANHLAB 17:49
PROVIDERS: Visit Provider Internal Medicine Nephrology
DX: R80.9 Proteinuria, unspecified (principal); I10 Essential (primary) hypertension; R31.29 Other microscopic hematuria
CPT/HCPCS: 36415; 80069

== ENCOUNTER 2024-08-20 15:39 | Emergency (ER) | payer BC, SELFPAY ==
--- NOTE | ~2024-08-20 | XR_ITS ---
EXAMINATION: XR abdomen/kub 1V DATE: 08/20/2024 16:56 INDICATION: Kidney problems. TECHNIQUE: A supine view of the abdomen on 2 radiographs was obtained. COMPARISON: CT abdomen and pelvis 04/15/2021 FINDINGS: There are no dilated loops of bowel. There are phleboliths in the pelvis. IMPRESSION: 1. No visible urolithiasis. Reviewed, dictated and finalized at location A. IMPRESSION: 1. No visible urolithiasis.
[2024-08-20 15:40] VITALS: BP 132/89; PULSE 120; RESP 20; TEMP 36.6; O2SAT 99
[2024-08-20 15:59] VITALS: BP 132/89; PULSE 115; RESP 16; O2SAT 98
[2024-08-20 16:07] LABS: Basophils Absolute Auto 0.1 K/mm3 (0.0-0.1); Basophils Percent Auto 1.1 % (0.2-1.2); Eosinophils Absolute Auto 0.2 K/mm3 (0-0.3); Eosinophils Percent Auto 1.4 % (0-4.4); Hematocrit 49.3 % (42.0-52.0); Hemoglobin 17.7 g/dL (14.0-18.0); Immature Granulocyte Percent A 0.9 % (0-0.5); Lymphocytes Absolute Auto 3.53 K/mm3 (0.9-3.2); Lymphocytes Percent Auto 33.2 % (18.3-44.2); Mean Corpuscular HGB Conc 35.9 g/dl (32-36); Mean Corpuscular Hemoglobin 32.7 pg (26-34); Mean Corpuscular Volume 91.1 fl (80-100); Mean Platelet Volume 9.9 fl (7.4-10.4); Monocytes Percent Auto 9.1 % (2.6-8.5); Neutrophils Absolute Auto 5.8 K/mm3 (1.3-6.7); Neutrophils Percent Auto 54.3 % (45.5-73.1); Platelet Count Result 294 k/mm3 (150-375); Red Blood Count 5.41 M/mm3 (4.6-6.20); Red Cell Distribution Width 13.3 % (11.5-14.5); White Blood Count 10.6 K/mm3 (4.5-10.0)
[2024-08-20 16:17] LABS: Alanine Aminotransferase 36 U/L (6-50); Albumin Level 4.5 g/dL (3.5-5.1); Alkaline Phosphatase 60 U/L (38-126); Anion Gap 14 mmol/L (4-12); Aspartate Amino Transferase 37 U/L (17-59); Bilirubin,Total 1.1 mg/dL (0.2-1.3); Blood Urea Nitrogen 19 mg/dL (9-20); Calcium 9.9 mg/dL (8.4-10.2); Carbon Dioxide 21 mmol/L (22-30); Chloride 104 mmol/L (98-107); Estimated CRCL calculation 58 ml/min; Estimated Glomerular Filt Rate 48; Glucose 101 mg/dL (65-110); Potassium 3.9 mmol/L (3.4-5.0); Sodium 139 mmol/L (137-145)
[2024-08-20 16:18] LABS: Add Urine Microscopic? YES; Appearance Urine Clear (Clear); Bacteria Urine None Seen /hpf; Bilirubin Urine Negative (Negative); Blood Urine 3+ (Negative); Color Urine Yellow (Yellow); Glucose Urine UA Negative (Negative); Ketones Urine Trace mg/dL (Negative); Leukocyte Esterase Ur Trace LEU/UL (Negative); Nitrate Urine Negative (Negative); Non Pathogenic Casts 0-2; Protein Urine 2+ mg/dL (Negative); RBC Urine 21-50 /hpf (0-2); Specific Grav Ur 1.014 (1.001-1.035); Squamous Epithelial Cell Urine None Seen /hpf (Few); WBC Urine 0-5 /hpf (0-3); pH Urine 5.5 (5.0-9.0)
[2024-08-20 16:22] LABS: Ethanol 148 mg/dL (<10)
[2024-08-20 16:52] LABS: Benzodiazepines Screen Urine Negative (Negative)
[2024-08-20 16:54] LABS: Amphetamine Screen Urine Positive (Negative); Cannabinoid Screen Urine Negative (Negative); Cocaine Screen Urine Negative (Negative); Methadone Screen Urine Negative (Negative); Opiate Screen Urine Negative (Negative)
--- NOTE | 2024-08-20 16:54 | PC.NURSE ---
Mom of patient called to the ER to check on the patient. Mom was talking about him sending a single I love you text to her, his sister, and his brother. Mom also states that he has a notebook he won't let anyone look at or take and that he keeps his thoughts in the notebook. patient told the officer that he is writing a note to his 12 year old son. Mom was concerned that he took a bunch of his medications, patient was stating he was tired of being here and wasn't stupid enough to do it at the house, he would go somewhere else Patient making statements to this RN and the tech that he'll go through the protocols but once he's ready to leave there isn't going to be an alarm or signal that he'll just walk right out. Sitter at bedside due to patient being an elopement risk. Patient being cooperative with staff, with the exception of radiology whom he told he doesn't speak north korean and was acting like he had no idea what they were saying or asking him.
[2024-08-20 16:57] LABS: Barbiturate Screen Urine Negative (Negative)
[2024-08-20 16:59] LABS: Thyroid Stimulating Hormone Reflex 0.099 uIU/mL (0.465-4.68)
[2024-08-20 17:11] LABS: Acetaminophen < 10 ug/mL (10-30); Salicylate < 1.0 mg/dL (2-20)
[2024-08-20 17:13] LABS: Phencyclidine Screen Urine Negative (Negative)
[2024-08-20] MEDS: SODIUM CHLORIDE 0.9% IV 1,000 ML 999 ML IV CONT (17:18)
[2024-08-20] MEDS: LORazepam (*CRX) 0.5 MG TABLET PO (17:18)
[2024-08-20 17:32] LABS: Free T4 Free Thyroxine 1.34 ng/mL (0.78-2.19)
[2024-08-20] MEDS: NICOTINE (*PBKC) 21 MG PATCH 1 PATCH TRANSDERM (18:14)
[2024-08-20 19:10] VITALS: BP 141/82; PULSE 98; RESP 18; TEMP 36.7; O2SAT 100
[2024-08-20 20:02] LABS: Ethanol 78 mg/dL (<10)
--- NOTE | 2024-08-20 20:36 | ED.PSYCH ---
HPI - Psych General Chief Complaint: Psychiatric Symptoms <Tish Rascon ENVIRONMENTAL CHANGE ANALYST - Last Filed: 08/20/24 22:31> Stated Complaint: SI <Tish Rascon ENVIRONMENTAL CHANGE ANALYST - Last Filed: 08/20/24 22:31> Time Seen by Provider: 08/20/24 15:42 <Tish OrellanaDarin Rascon ENVIRONMENTAL CHANGE ANALYST - Last Filed: 08/20/24 22:31> Source: patient <Tish Rascon ENVIRONMENTAL CHANGE ANALYST - Last Filed: 08/20/24 22:31> Mode of arrival: EMS <Tish Arnettnova ENVIRONMENTAL CHANGE ANALYST - Last Filed: 08/20/24 22:31> Limitations: intoxication <Tish ReynaDarin Tarah ENVIRONMENTAL CHANGE ANALYST - Last Filed: 08/20/24 22:31> History of Present Illness HPI Narrative: Patient is a 39-year-old male who presents to the ER in police custody after making suicidal threats. EMS reports he wrote out a suicide note and call the family member. The family member called 911. The police and EMS showed up and brought patient to the ER. Upon arrival patient's heart rate was in the 120s, but patient reports that his heart rate is always that high. He denies any illicit drug use, but endorses Adderall for his ADD. Patient reports he feels like an incompetent father, he and his girlfriend recently broke up, and he is currently sleeping on a friend's couch. He is concerned because he is supposed to work at 7:00 p.m. [employer] Patient endorses feeling a sense of accomplishment with his employment because he works on [employer] at [employer]. When asked about his plan to carry out his suicidal intentions patient reports I could do it easily, no matter what you take away from me I could always find a way. Patient reports he has had suicidal ideations for a long time. He reports I am just tired. Just tired of living like this. Patient reports he has been in this ER before and had a chest tube. He reports he has a primary care provider who has advised him to get an ultrasound on his kidneys, as patient continues to have blood in his urine and back pain. He denies current chest pain, shortness a breath, or other signs of illness. <Tish Rascon APRN - Last Filed: 08/20/24 22:31> MD complaint: suicidal ideation <Tish Rascon APRN - Last Filed: 08/20/24 22:31> Related Data Home Medications: Home Medications Medication Instructions Recorded Confirmed bupropion HCl 150 mg 24 hr tablet, 150 mg PO DAILY 12/10/22 12/01/23 extended release lisinopril 10 mg tablet 10 mg PO DAILY 08/25/23 12/01/23 <Tish Rascon APRN - Last Filed: 08/20/24 22:31> Allergies/Adverse Reactions: Allergies Allergy/AdvReac Type Severity Reaction Status Date / Time hydrocodone Allergy Rash Verified 01/12/24 15:56 aspirin AdvReac Other Verified 01/12/24 15:56 <Tish Rascon APRN - Last Filed: 08/20/24 22:31> Review of Systems Review of Systems: All systems reviewed & are unremarkable except as noted in HPI and below <Tish Rascon APRN - Last Filed: 08/20/24 22:31> PMFSH Past Medical History Medical History: Medical History Abdominal pain Clostridium difficile colitis Ganglion cyst Left wrist Nausea and vomiting in adult Smoker Spontaneous pneumothorax <Tish Rascon APRN - Last Filed: 08/20/24 22:31> Surgical History Surgical History: Surgical History History of chest tube placement Left chest History of partial colectomy (~2017) Due to hemorrhoid surgery with complications resulting in severe blood loss and blood transfusion History of tympanostomy X3 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
[2024-08-20 23:15] VITALS: BP 130/72; PULSE 82; RESP 19; TEMP 36.6; O2SAT 99
== END 2024-08-21 00:05 | disposition home or self-care (01) ==
PROVIDERS: Emergency Provider Registered Nurse
DX: F32.A Depression, unspecified (principal); R94.6 Abnormal results of thyroid function studies; F98.8 Other specified behavioral and emotional disorders with onset usually occurring in childhood and adolescence; F17.210 Nicotine dependence, cigarettes, uncomplicated; Z90.49 Acquired absence of other specified parts of digestive tract
CPT/HCPCS: 36415; 74018; 80053; 80143; 80179; 80307; 81001; 82077; 84439; 84443; 85025; 96360; 96361; 99284; A9270; J7030

== ENCOUNTER 2025-08-11 13:32 | Emergency (ER) | payer BC, SELFPAY ==
--- OUTSIDE RECORDS SUMMARY | 2025-05-17 11:00 | XMS_ITS ---
Author Organization [facility] Address [address] [place] [address] Care Team Providers Care Train Electronic Technician Name Role Phone Venus Meade Primary Care Provider [phone] REASON FOR VISIT 4 week FU Social History Sex Assigned At : Social History Observation Description Sex Assigned At Male Encounters Encounter Location Date Provider Diagnosis [address] [place] [address] 05/17/2025 Venus Meade Plan Of Treatment No Information Progress Notes * Felipe ORTIZDOB:1985 ( 40 yo M)Acc No.[id number]:05/17/2025 UNLOCKED PROGRESS NOTE Patient: Felipe CRUZ Provider: Sam Meade, MSN, CHOKER SETTER, APPLICATION DEVELOPMENT LIAISON-C :1985 A ge:39 Y S ex:Male Date:05/17/2025 Address:[address] [facility] Subjective: * Chief Complaints: * 1 . 4 week FU. * Medical History: Objective: * Vitals: Assessment: Plan: * Treatment: * * Electronic signature of Reshma Meade , [id number] on 08/11/2025 at 04:23 PM CDT Sign off status: Pending * Provider: Sam Meade, MSN, CHOKER SETTER, APPLICATION DEVELOPMENT LIAISON-C Date: 05/17/2025 Generated for Printi ng/Faxing/eTransmitting on: 08/11/2025 04:23 PM CDT
--- OUTSIDE RECORDS SUMMARY | 2025-06-14 07:00 | XMS_ITS ---
Author Organization [facility] Address [address] [place] [address] Care Team Providers Care Drug Abuse Worker Name Role Phone Venus Meade Primary Care Provider REASON FOR VISIT Needs to R/S - mlr missed last appt- 4 week f u Social History Sex Assigned At : Social History Observation Description Sex Assigned At Male Encounters Encounter Location Date Provider Diagnosis [address] [place] [address] 06/14/2025 Venus Meade Plan Of Treatment No Information Progress Notes * Felipe ORTIZDOB:1985 ( 40 yo M)Acc No.[id number]:06/14/2025 UNLOCKED PROGRESS NOTE Patient: Felipe CRUZ Provider: ROBERT Malave, AUTO CLUTCH REBUILDER, PAD CUTTER-C :1985 A ge:39 Y S ex:Male Date:06/14/2025 Address:[address] [facility] Subjective: * Chief Complaints: * 1 . Needs to R/S - mlr missed last appt- 4 week f u. * Medical History: Objective: * Vitals: Assessment: Plan: * Treatment: * * Electronic signature of Reshma Meade , [id number] on 08/11/2025 at 04:22 PM CDT Sign off status: Pending * Provider: Sam Meade MSN, AUTO CLUTCH REBUILDER, PAD CUTTER-C Date: 0 06/14/2025 Generated for Printi ng/Faxing/eTransmitting on: 0 08/11/2025 04:22 PM CDT
--- NOTE | 2025-08-11 13:33 | ED.ABDPAIN ---
HPI - Abdominal Pain General Chief Complaint: Abdominal Pain Stated Complaint: Stomach Pain Time Seen by Provider: 08/11/25 13:33 Source: patient Mode of arrival: ambulatory Limitations: no limitations History of Present Illness HPI narrative: Felipe is a 40 year old male patient presenting to the clinic today with c/o abdomen discomfort for the past 6 months. He reports he feels as though his abdomen is bloated if that he has a bulge to the mid upper abdomen that is not normally there. When he drinks alcohol this makes him vomit. He is able to keep other fluids and foods down. Last bowel movement was yesterday and normal for him. He denies any blood in his vomit or in his stool. Recently has been putting on weight. Also expressed some fatigue. Denies any abdominal pain currently. No fevers, chills, body aches. Denies any history of IBS, Crohn's, ulcerative colitis, or constipation. Related Data Home Medications ?Medication ?Instructions ?Recorded ?Confirmed ?Last Taken ?Type lisinopril 10 mg tablet 10 mg PO DAILY 08/25/23 08/30/24 Unknown History amlodipine 10 mg tablet 10 mg PO DAILY 08/30/24 08/30/24 Unknown History vilazodone 20 mg tablet (Viibryd) 20 mg PO DAILY 08/30/24 08/30/24 Unknown History Allergies Allergy/AdvReac Type Severity Reaction Status Date / Time hydrocodone Allergy Rash Verified 08/11/25 13:47 aspirin AdvReac Other Verified 08/11/25 13:47 Review of Systems Review of Systems: Pertinent positives per HPI. Patient denies any fever, chills, rash, headache, visual changes, dizziness, cough, runny nose, sore throat, shortness of breath, chest pain, palpitations, nausea, vomiting, diarrhea, constipation, or any urinary issues. 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 His ex-girlfriend recently moved nearby and they have a 9-year-old daughter in common. 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 He drinks a 12 pack of beer a week. He has smoked a pack of cigarettes per day since the age of 20. He will occasionally snort cocaine. He will occasionally smoke marijuana. He denies any IV drug use. He does not have a primary care physician. He does not have advanced directives in place. Smoking packs per day: 1 Smoking cigarettes per day: 20.0 Years smoked: 15 Smoking pack-years: 15.00 Smoking status: Current every day smoker Tobacco type: cigarettes Alcohol intake: current Drinks per week: 12 Substance use: former Substance use type: former substance user Do You Feel Safe in your Home?: Yes Lack of Transportation: No Lack of Food: Never True Current Housing: I Have Housing Concerned About Future Housing: No Difficulty Paying Gas/Electric Bills: No Difficulty Paying for Meds: No Currently Unemployed: No Education: Trade/Vocational Certificate Difficulty w/ Childcare or Family Care: No Living arrangements: with family Occupation/Education: occupation Gender identity (if verbalized by the patient): Male Sexual Orientation (if Verbalized by the Patient): Straight or Heterosexual Spiritual care concerns: No Comments At the time of my signature, I reviewed and agree with the nursing past medical, surgical, social, and family history. There is no relevant family history pertinent to the patient complaint. Exam Narrative: General: Well-developed, well nourished, in no apparent distress. Head: Normocephalic, atraumatic. Cardio: Regular rate and rhythm, s1 and s2 normal, no murmur appreciated. Resp: Clear to auscultation bilaterally, no rhonchi, rales, wheezing or rubs. Abdomen: Soft, pliable, bowel sounds present in all quadrants, bulge over the epigastric area that is reducible, non-tender to palpation, no organomegly, no CVAT tenderness. Course Course Emergency Course: Portions of this record may have been created with voice recognition software. Level of Care: Express Care Visit Vital Signs Vital signs: Vital Signs Temperature 36.3 C L 08/11/25 13:38 Pulse Rate 82 08/11/25 13:38 Respiratory Rate 18 08/11/25 13:38 Blood Pressure 162/114 H 08/11/25 13:38 Pulse Oximetry 98 08/11/25 13:38 Oxygen Delivery Room Air 08/11/25 13:38 Temperature 36.3 C L 08/11/25 13:38 Pulse Rate 82 08/11/25 13:38 Respiratory Rate 18 08/11/25 13:38 Blood Pressure 162/114 H 08/11/25 13:38 Pulse Oximetry 98 08/11/25 13:38 Oxygen Delivery Room Air 08/11/25 13:38 Vital signs reviewed MDM - Abdominal Pain MDM Narrative Medical decision making narrative: At the time of visit patient is resting comfortably on the exam table. Patient appears to be nontoxic. C/o abdomen discomfort for the past 6 months. He reports he feels as though his abdomen is bloated if that he has a bulge to the mid upper abdomen that is not normally there. When he drinks alcohol this makes him vomit. He is able to keep other fluids and foods down. Last bowel movement was yesterday and normal for him. He denies any blood in his vomit or in his stool. Recently has been putting on weight. Also expressed some fatigue. He thinks it may be due to him not taking his medications-lost his insurance. He was taking antidepressant medications and ADHD medications. Denies any abdominal pain currently. No fevers, chills, body aches. On exam patient has a bulge to the epigastric area of the abdominal wall that is reducible. Bowel sounds are present all 4 quadrants, no CVAT tenderness, and abdomen is soft and pliable. Plan: I suspect patient has a reducible epigastric wall hernia. Recommend follow-up with PCP for labs, imaging, and possibly a general surgery consult. Supportive measures were discussed with the patient and they voiced understanding discharge instructions and agrees to treatment plan. Return precautions reviewed Differential Diagnosis Differential diagnosis: Likely abdominal pain, acute appendicitis, calculus of kidney, constipation, diverticulitis, gastroenteritis, pancreatitis and small bowel obstruction Discharge Plan Discharge Clinical Impression: Hernia of anterior abdominal wall Patient Disposition: Home Condition: Stable Instructions: Antibiotic Form, Abdominal Pain (ED) Additional Instructions: I suspect you have likely have an epigastric hernia May take Tylenol/Motrin as needed for pain per bottle directions Increase fluids and stay well hydrated Avoid eating spicy or fatty foods, chocolate, drinking alcohol, or drinking caffeine. Avoid foods that cause you to feel bloated. Stop smoking May purchase and abdomen binder to help support the abdomen wall muscle Follow up with your PCP in 3-5 days if symptoms persist-may need further imaging/labs/sugery consult Patient Language: Slovak Prescriptions: No Action lisinopril 10 mg tablet 10 mg PO DAILY amlodipine 10 mg tablet 10 mg PO DAILY vilazodone [Viibryd] 20 mg tablet 20 mg PO DAILY Rx Instructions: must administer with a meal/food Follow-up/Referrals: Hayden,AUTUMN Johnston [Primary Care Provider, Unknown] Time of Disposition: 13:51 Quality NIHSS Nursing Documentation ED NIHSS nursing documentation: reviewed/agree
[2025-08-11 13:38] VITALS: BP 162/114; PULSE 82; RESP 18; TEMP 36.3; O2SAT 98
--- OUTSIDE RECORDS SUMMARY | 2025-08-11 16:22 | XMS_ITS | Clinical Summary ---
Author Organization [facility] Address [address] [place] [id number] Care Team Providers Care Police Superintendent Name Role Phone Cony Blake NP Primary Care Provider [phone] Allergies Active Allergy Reactions Criticality Noted Date Comments Hydrocodone-Acetaminophen Itching Low 02/14/2016 Medications BLOOD PRESSURE CUFF, DME,Indications:U ncontrolled hypertension 1 Device by Does not apply route 2 (two) times a day. 1 Device 3 Active VYVANSE 50 MG capsule Take 1 capsule (50 mg total) by mouth daily. 5 Active traZODone (DESYREL) 50 MG tablet daily. Active ARIPiprazole (ABILIFY) 15 MG tablet daily. Active carvedilol (COREG) 6.25 MG tabletIndications :Uncontrolled hypertension,Tach ycardia Take 1 tablet (6.25 mg total) by mouth 2 (two) times daily. 180 tablet 1 5 Active losartan (COZAAR) 25 MG tabletIndications :Uncontrolled hypertension,Tach ycardia Take 1 tablet (25 mg total) by mouth daily. 90 tablet 1 5 Active amLODIPine (NORVASC) 10 MG tabletIndications :Uncontrolled hypertension Take 1 tablet (10 mg total) by mouth daily. 90 tablet 1 5 Active Active Problems Problem Noted Date Diagnosed Date Hx of chest pain 01/19/2025 Overview (01/19/2025): Has hx of chest pain, EKG done in office last time that was NSR. The chest pain does worry him. Assessment & Plan (01/19/2025 8:51 AM PHYSICIAN ASSISTANT CERTIFIED): Will obtain echo and exercise stress test. Any severe chest pain, shortness of breath, jaw pain, left shoulder pain to seek ER care. Proteinuria, unspecified type 07/29/2024 Overview (12/31/2024): Follows with nephrology. Assessment & Plan (12/31/2024 9:03 AM PHYSICIAN ASSISTANT CERTIFIED): Follow up with nephrology as directed.To preserve kidney function, encourage to stay well hydrated, keep your blood pressure controlled (130/80 or less), avoid NSAID'S, avoid smoking. Assessment & Plan (07/29/2024 8:41 AM CDT): Follow up with nephrology as directed.To preserve kidney function, encourage to stay well hydrated, keep your blood pressure controlled (130/80 or less), avoid NSAID'S,and keep diabetes under control. Back spasm 07/29/2024 Overview (07/29/2024): Pulled a muscle in his back while at work. Reports tightness and spasms. Assessment & Plan (07/29/2024 8:43 AM CDT): Recommend heat and ice for generalized discomfort. Will provide patient muscle relaxer. Discussed how to take and side effects. He has taken Flexeril before and tolerated well. Uncontrolled hypertension 07/29/2024 Overview (01/19/2025): Chronic condition that is not controlled. He has taken his losartan 50mg daily. Has not taken his amlodipine in a couple weeks. He was started on carvedilol at this last office visit and he is tolerating well. He has cut down on his caffeine use and is not drinking energy drinks now. Denies chest pain, palpitations, shortness of breath, dizziness, lightheadedness or lower extremity edema. Denies any orthopnea or PND. Assessment & Plan (01/19/2025 9:02 AM PHYSICIAN ASSISTANT CERTIFIED): Chronic condition that is not controlled.Avoid excess caffeine, avoid stimulant use, avoid vaping, limit stressors. Pt to begin amlodipine 10mg daily, losartan 25mg daily and resume carvedilol 6.25mg BID. Assessment & Plan (12/31/2024 9:03 AM PHYSICIAN ASSISTANT CERTIFIED): Chronic condition that is not controlled. There are multitude of concerns here that I discussed with patient as he likely has untreated sleep apnea, he is on a stimulant pressure and pulse, he has anxiety, he follows a 4 lifestyle as he smokes and drinks. I highly encourage working on lifestyle modifications, cutting out alcohol, stopping stimulant. Routine exercise and weight loss. Patient to resume amlodipine at same doses blood pressure is not controlled. Will begin patient on losartan again 25 mg and asked will also add on carvedilol twice a day to help control blood pressure and pulse. Encouraged to stay well hydrated. Encourage stress relieving activities. Assessment & Plan (07/29/2024 8:44 AM CDT): Blood pressure is not controlled today. It is improved from previous blood pressure checks. Will switch patient from lisinopril to losartan due to having a cough with use of lisinopril. Patient to monitor blood pressure closely and if running higher than 140/90 we will adjust his medication. Subclinical hyperthyroidism 07/29/2024 Overview (01/19/2025): Will recheck today. Assessment & Plan (01/19/2025 8:53 AM PHYSICIAN ASSISTANT CERTIFIED): Rechecking today. Assessment & Plan (12/31/2024 9:04 AM PHYSICIAN ASSISTANT CERTIFIED): Will recheck labs. Could be also causing some of his issues. Assessment & Plan (07/29/2024 8:47 AM CDT): Will recheck and provide further recommendations once back. At risk for obstructive sleep apnea 06/21/2023 Overview (01/19/2025): Needs to schedule this still. Assessment & Plan (01/19/2025 8:47 AM PHYSICIAN ASSISTANT CERTIFIED): Pt to schedule his home sleep study in near future. Assessment & Plan (12/31/2024 9:11 AM PHYSICIAN ASSISTANT CERTIFIED): Sleep study reordered. Patient has multiple risk factors include hypertension, male, daytime fatigue, apnea, snoring, not feeling well rested. Assessment & Plan (07/29/2024 8:41 AM CDT): Encouraged to schedule sleep study. Anxiety and depression 06/21/2023 Overview (01/19/2025): He is doing better. He is not taking Vyvanse daily. He is cut out energy drinks. He quit vaping. He feels less anxious and depressed. 12/31/24 Following with psychiatry. Is currently doing okay. No current SI/HI. Patient was seen in the emergency room for suicidal ideations in August 2024. Patient then was involuntary admitted to a psychiatric hospital. Unsure where patient was seen. He does follow with psychiatry. Patient is currently on Abilify 2 mg daily that was added to his med regimine. I asked if he was given a new diagnosis and he states no one really talked to me He has a follow-up with a psychiatrist next month. Assessment & Plan (01/19/2025 9:05 AM PHYSICIAN ASSISTANT CERTIFIED): Continue to follow with psychiatry as directed. Encourage therapy as well. His anxiety and depression is currently well controlled. Assessment & Plan (12/31/2024 9:08 AM PHYSICIAN ASSISTANT CERTIFIED): Continue to follow with psychiatry as directed. Encourage therapy as well. Assessment & Plan (07/29/2024 8:42 AM CDT): Continue to follow with psychiatry as directed. Encourage therapy as well. PTSD (post-traumatic stress disorder) 06/21/2023 Overview (07/29/2024): Follows with psychiatry. Is currently doing okay. Denies any current SI/HI. Attention deficit hyperactiv ity disorder (ADHD), combined type 06/21/2023 Overview (01/19/2025): Is not taking Vyvance every day. We talked about switching to a nonstimulant. He still needs to discus this with psychiatry. Assessment & Plan (01/19/2025 8:48 AM PHYSICIAN ASSISTANT CERTIFIED): Recommend Guanfacine, Straterra, or Clonidine instead of Vyvance. Pt to discuss with his psychiatrist. He is working on stopping his Vyvance. He is taking less often now. Assessment & Plan (12/31/2024 9:00 AM PHYSICIAN ASSISTANT CERTIFIED): I informed patient that I am uncomfortable that he continues Vyvanse. I would recommend a nonstimulant option for his ADHD such as guanfacine or Strattera. I wrote down these medications for him to discuss with his psychiatrist. Patient did take his Vyvanse today. He also does drink a lot of caffeine and he likely has untreated sleep apnea so these are all cardiovascular risks that can lead to a major cardiovascular event. I made him aware of all this. Assessment & Plan (07/29/2024 8:42 AM CDT): Continue to follow with psychiatry at for his ADHD management. Hematuria, unspecified type 06/21/2023 Overview (12/31/2024): Following with nephrology Dr.Kanungo Turner. Has a renal ultrasound coming up. Assessment & Plan (12/31/2024 9:01 AM PHYSICIAN ASSISTANT CERTIFIED): Patient to keep me updated on his workup from nephrology. Patient has history of microscopic hematuria. Patient may need a referral to urology as well in the future. Assessment & Plan (07/29/2024 8:42 AM CDT): Continue to follow with nephrology. Patient may end up being referred to nerve to urology as well. Patient will keep updated on this. Vapes nicotine containing substance 06/21/2023 Overview (01/19/2025): Recently quit vaping. Assessment & Plan (07/29/2024 8:51 AM CDT): Encourage smoking cessation. Other fatigue 06/21/2023 Immunizations Immunization Administration Dates Next Due FLUCELVAX (ccIIV3, TRIVALENT, 0.5mL) 09/18/2024 Influenza Adult (Generic) 02/12/2016 MODERNA COVID-19 (12+) MRNA, LNP-S, PF, 100 MCG/ 0.5 ML DOSE 06/28/2021,05/08/2021 Tdap (Generic) 09/18/2017 Family History Medical History Relation Comments Alcohol Abuse Father anxiety and depr ession Hypertension Mother Stroke Paternal Grandmother Relation Status Comments Brother Alive Father Mother Paternal Grandmother Sister Alive Social History Tobacco Use Types Packs/Day Years Used Date Smoking Tobacco: Every Day Cigarettes 0.5 10 Passive Smoke Exposure: Past Smokeless Tobacco: Former Chew Tobacco Cessation:Ready to Q uit: No; Counseling Given: No Alcohol Use Standard Drinks/Week Comments Yes 0 (1 standard drink = 0.6 oz pure alcohol) every other days, takes a few shots PHQ-2 Answer Date Recorded Patient Health Questionnaire-2 Score 2 12/31/2024 Sex and Gender Information Value Date Recorded Sex Assigned at Male 12/31/2024 8:40 AM PHYSICIAN ASSISTANT CERTIFIED Legal Sex Male 8:06 PM CDT Gender Identity Male 12/31/2024 8:40 AM PHYSICIAN ASSISTANT CERTIFIED Sexual Orientation Straight 12/31/2024 8: 40 AM PHYSICIAN ASSISTANT CERTIFIED Last Filed Vital Signs Vital Sign Reading Time Taken Comments Blood Pressure 150/102 01/19/2025 8:56 AM PHYSICIAN ASSISTANT CERTIFIED Pulse 86 01/19/2025 8:19 AM PHYSICIAN ASSISTANT CERTIFIED Temperature 36.1 C (97 F) 01/19/2025 8:19 AM PHYSICIAN ASSISTANT CERTIFIED Respiratory Rate 20 01/19/2025 8:19 AM PHYSICIAN ASSISTANT CERTIFIED Oxygen Saturation 100% 01/19/2025 8:19 AM PHYSICIAN ASSISTANT CERTIFIED Inhaled Oxygen Concentration - - Weight 90.3 kg (199 lb) 01/19/2025 8:19 AM PHYSICIAN ASSISTANT CERTIFIED Height 177.8 cm (5' 10) 01/19/2025 8:19 AM PHYSICIAN ASSISTANT CERTIFIED Body Mass Index 28.55 01/19/2025 8:19 AM PHYSICIAN ASSISTANT CERTIFIED Plan of Treatment Upcoming Encounters Date Type Department Care Team (Late st Contact Info) Description 09/19/2025 2:20 PM PHYSICIAN ASSISTANT CERTIFIED Office Visit [facility] [place] [address] [place] [address] Cony Blake, DESIREE [address] [place] [address] Health Maintenance Due Date Last Done Comments Hepatitis B Vaccines (1 of 3 - 19+ 3-dose series) 2004 Pneumococcal Vaccine: Pediatrics (0 to 5 Years) and At-Risk Patients (6 to 49 Years) (1 of 2 - PCV) 2004 HPV Vaccines (1 - 3-dose SCD M series) 2012 COVID-19 Vaccine (3 - 2024-2 6 season) 2025 06/28/2021, 05/08/2021 Annual Physical 07/29/2025 07/29/2024, 06/20/2023 DTaP, Tdap and Td Vaccines ( 2 - Td or Tdap) 09/18/2027 09/18/2017 Hepatitis C Completed 06/23/2023 PHQ-2 (Physician [place]) Completed 12/31/2024 Meningococcal B Vaccine Aged Out No l onger eligible based on patient's age to complete this topic Meningococcal Vaccine Aged Out No bethanie ladonna eligible based on patient's age to complete this topic RSV Immunizations Under 20 Months Aged Out No longer eligible b ased on patient's age to complete this topic Procedures Procedure Name Priority Date/Time Associated Diagnosis Comments HEPATITIS C ANTIBODY W/RFX TO HCV RNA Routine 06/23/2023 7:28 AM CDT Need for hepatitis C screening test from Last 3 Months or Most Recently Relevant to Health Maintenance Results * HEPATITIS C ANTIBODY W/RFX TO HCV RNA (06/23/2023 7:28 AM CDT) HEPATITIS C AB NON-REACT PASTORA NON-REACT PASTORA [facility] Comment: HCV antibody was non-reactive. There is no laboratory evidence of HCV infection. In most cases, no further action is required. However, if recent HCV exposure is suspected, a test for HCV RNA (test code 07227) is suggested. For additional information please refer to http://education.[employer]/faq/ZRI24y4 (This link is being provided for informational/ educational purposes only.) 06/23/2023 7:28 AM CDT 06/23/2023 7:30 AM CDT Narrative [facility] - 07/02/2023 10:17 AM CDT FASTING:YES FASTING: YES Resulting Agency Comment Performing Organization Information: Site ID: [id number] Name: [facility] Address: [address] [place] [address] Director: Farzaneh Wade MD us Cony Blake NP LABORATORY Final Res ult [facility] [address] [place] [address], from Last 3 Months or Most Recently Relevant to Health Maintenance Insurance [facility] MEDICAID Care Teams Police Superintendent Relationship Specialty Start Date End Date Cony Blake NP [address] [place] [address] PCP - General NURSE PRACTITIONER 06/20/23
--- OUTSIDE RECORDS SUMMARY | 2025-08-11 16:23 | XMS_ITS | Patient Health Record ---
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 Name Role Phone Venus Meade Primary Care Provider Albina Tavarez Unavailable [phone] Allergies No Known Allergies Reason For Referral No Information Medications Medication SIG (Take, Route, Frequency, Duration) Notes Start Date End Date Status Amphetamine-Dextroampheta mine 10 MG 1 tablet Orally Once a day; Duration: 30 days 06/22/2025 Active ARIPiprazole 2 MG 1 tablet Orally Once a day; Duration: 30 days Active traZODone HCl 50 MG 1 tablet at bedtime as needed Orally Once a day; Duration: 30 days Active Vyvanse 50 MG 1 capsule in the morning Orally Once a day; Duration: 30 days 06/22/2025 Active Vyvanse 60 MG 1 capsule in the morning Orally Once a day; Duration: 30 days 07/14/2024 Not-Takin g Losartan Potassium 25 MG 1 tablet Orally Once a day; Duration: 30 days 09/20/2024 Active amLODIPine Besylate 2.5 MG 1 tablet Orally Once a day; Duration: 30 days 09/20/2024 Active Social History Tobacco Use: Social History Observation Description Date Details (start date - stop date) Current Smoker NA - NA Sex Assigned At : Social History Observation Description Sex Assigned At Male Tobacco Control (Standard) Question Answer Notes Tobacco use: Current every day smoker Additional Findings: Tobacco user Moderate cigar ette smoker (10-19 cigs/day) Problems Problem Type SNOMED Code ICD Code Onset Dates Problem Status W/U Status Risk Notes Problem Generalized anxiety disorder (71947699) Generalized anxiety disorder (F41.1) Active confirmed Problem Major depression (744172832) Major depression (F32.9) Active confirmed Problem Posttraumatic stress disorder (42214262) PTSD (post-traumatic stress disorder) (F43.10) Active confirmed Problem Anxiety (74076259) Anxiety (F41.9) Active confirmed Problem Attention deficit hyperactivity disorder (509508479) ADHD (attention deficit hyperactivity disorder) (F90.9) Active confirmed Vital Signs Heart Rate 81 /min 02/08/2025 Temperature 98.0 degrees Fahrenheit 02/08/2025 Respiratory Rate 16 /min 02/08/2025 Blood pressure diastolic 84 mm Hg 03/08/2025 Oximetry 99 % 02/08/2025 Height 72 in 02/08/2025 Blood pressure systolic 138 mm Hg 03/08/2025 Weight 202.7 lbs 02/08/2025 BMI 27.49 kg/m2 02/08/2025 Encounters Encounter Location Date Provider Diagnosis [address] [place] [address] 09/20/2024 Venus Meade Generalized anxiety disorder F41.1 ; Major depression F32.9 and ADHD (attention deficit hyperactivity disorder) F90. [facility] [place] [address] 10/05/2024 Venus Meade Generalized anxiety disorder F41.1 ; Major depression F32.9 and ADHD (attention deficit hyperactivity disorder) F90.[address] [place] [address] 11/24/2024 Venus Meade Generalized anxiety disorder F41.1 ; Major depression F32.9 and ADHD (attention deficit hyperactivity disorder) F90.9 [facility] [place] [address] 12/28/2024 Venus Meade Generalized anxiety disorder F41.1 ; Major depression F32.9 and ADHD (attention deficit hyperactivity disorder) F90. [facility] [address] [place] [address] 02/08/2025 Venus Medae Generalized anxiety disorder F41.1 ; Major depression F32.9 and ADHD (attention deficit hyperactivity disorder) F90. [facility] [place] [address] 03/08/2025 Venus Meade Generalized anxiety disorder F41.1 ; Major depression F32.9 and ADHD (attention deficit hyperactivity disorder) F90.[address] [address] 04/07/2025 Venus Meade Generalized anxiety disorder F41.1 ; Major depression F32.9 and ADHD (attention deficit hyperactivity disorder) F90.[address] [address] 06/22/2025 Venus Meade Generalized anxiety disorder F41.1 ; Major depression F32.9 and ADHD (attention deficit hyperactivity disorder) F90.[address] [address] 09/06/2024 Venusabraham Ore[address]Deshaun [address] [address] 09/20/[address] [address] 09/30/[address] [address] 11/11/2024 Albina Tavarez Major depression F32.9 and ADHD (attention deficit hyperactivity disorder) F90.[address] [address] 12/27/[address] [address] 02/01/2025 Venus Meade ADHD (attention deficit hyperactivity disorder) F90.[address] [address] 03/01/2025 Venus O[place] [address] [place] [address] 03/30/2025 Venus Meade ADHD (attention deficit hyperactivity disorder) F90.9 and Major depression F32.9 [facility] [address] [place] [address] 04/28/2025 Venus Meade [address] [place] [address] 05/10/2025 Venus Meade ADHD (attention deficit hyperactivity disorder) F90.9 [facility] [address] [address] 05/31/2025 Venusabraham Meade ADHD (attention deficit hyperactivity disorder) F90.9 [facility] [address] [place] [address] 06/09/2025 Venusabraham OreillyDeshaun ADHD (attention deficit hyperactivity disorder) F90.9 and Major depression F32.[address] [address] 02/10/[address] [address] 02/23/[address] [place] [address] [address] 02/28/2025 Venus Meade ADHD (attention deficit hyperactivity disorder) F90.9 and Major depression F32.9 Assessments Encounter Date Diagnosis (ICD Code) Assessment Notes Treatment Notes Treatment Clinical Notes Section Notes 09/20/2024 Generalized anxiety disorder (ICD-10 - F41.1) 10/05/2024 Generalized anxiety disorder (ICD-10 - F41.1) 11/11/2024 Major depression (ICD-10 - F32.9) 11/24/2024 Generalized anxiety disorder (ICD-10 - F41.1) 02/01/2025 ADHD (attention deficit hyperactivity disorder) (ICD-10 - F90.9) 02/08/2025 Generalized anxiety disorder (ICD-10 - F41.1) 02/28/2025 ADHD (attention deficit hyperactivity disorder) (ICD-10 - F90.9) 03/08/2025 Generalized anxiety disorder (ICD-10 - F41.1) 12/28/2024 Generalized anxiety disorder (ICD-10 - F41.1) 03/30/2025 ADHD (attention deficit hyperactivity disorder) (ICD-10 - F90.9) 04/07/2025 Generalized anxiety disorder (ICD-10 - F41.1) 06/09/2025 ADHD (attention deficit hyperactivity disorder) (ICD-10 - F90.9) 06/22/2025 Generalized anxiety disorder (ICD-10 - F41.1) 05/10/2025 ADHD (attention deficit hyperactivity disorder) (ICD-10 - F90.9) 05/31/2025 ADHD (attention deficit hyperactivity disorder) (ICD-10 - F90.9) 06/09/2025 Major depression (ICD-10 - F32.9) 06/22/2025 Major depression (ICD-10 - F32.9) Take as prescribed. Reviewed purpose (mood stability), benefits, and risks - low blood pressure, metabolic syndrome with high cholesterol or high blood sugars, change in cardiac conduction, nausea, vomiting, temporary or permanent movement disorders, and akathisia. 04/07/2025 Major depression (ICD-10 - F32.9) Take as prescribed. Reviewed purpose (mood stability), benefits, and risks - low blood pressure, metabolic syndrome with high cholesterol or high blood sugars, change in cardiac conduction, nausea, vomiting, temporary or permanent movement disorders, and akathisia. Client wants to try decreasing/stopping Abilify as has been stable and having decreased libido. Monitor mood. F/U with PCP as well to discuss libido decrease. Client v/u. 12/28/2024 Major depression (ICD-10 - F32.9) Take as prescribed. Reviewed purpose (mood stability), benefits, and risks - low blood pressure, metabolic syndrome with high cholesterol or high blood sugars, change in cardiac conduction, nausea, vomiting, temporary or permanent movement disorders, and akathisia. 02/28/2025 Major depression (ICD-10 - F32.9) 03/30/2025 Major depression (ICD-10 - F32.9) 03/08/2025 Major depression (ICD-10 - F32.9) Take as prescribed. Reviewed purpose (mood stability), benefits, and risks - low blood pressure, metabolic syndrome with high cholesterol or high blood sugars, change in cardiac conduction, nausea, vomiting, temporary or permanent movement disorders, and akathisia. 02/08/2025 Major depression (ICD-10 - F32.9) Take as prescribed. Reviewed purpose (mood stability), benefits, and risks - low blood pressure, metabolic syndrome with high cholesterol or high blood sugars, change in cardiac conduction, nausea, vomiting, temporary or permanent movement disorders, and akathisia. 11/24/2024 Major depression (ICD-10 - F32.9) Take as prescribed. Reviewed purpose (mood stability), benefits, and risks - low blood pressure, metabolic syndrome with high cholesterol or high blood sugars, change in cardiac conduction, nausea, vomiting, temporary or permanent movement disorders, and akathisia. 11/11/2024 ADHD (attention deficit hyperactivity disorder) (ICD-10 - F90.9) 10/05/2024 Major depression (ICD-10 - F32.9) Take as prescribed. Reviewed purpose (mood stability), benefits, and risks - low blood pressure, metabolic syndrome with high cholesterol or high blood sugars, change in cardiac conduction, nausea, vomiting, temporary or permanent movement disorders, and akathisia. 09/20/2024 Major depression (ICD-10 - F32.9) 09/20/2024 ADHD (attention deficit hyperactivity disorder) (ICD-10 - F90.9) [place]. 10/05/2024 ADHD (attention deficit hyperactivity disorder) (ICD-10 - F90.9) [place]. Decrease to 40mg at next fill 10/18/24. 11/24/2024 ADHD (attention deficit hyperactivity disorder) (ICD-10 - F90.9) Increased due to poor concentration- client to f/u with PCP and monitor B/P. Client v/u. 02/08/2025 ADHD (attention deficit hyperactivity disorder) (ICD-10 - F90.9) Client to f/u with PCP and monitor B/P, improvement noted today. Client v/u. Discussed B/P and to decrease caffeine. 03/08/2025 ADHD (attention deficit hyperactivity disorder) (ICD-10 - F90.9) Client to f/u with PCP and monitor B/P, stability noted. Client v/u. 12/28/2024 ADHD (attention deficit hyperactivity disorder) (ICD-10 - F90.9) Client to f/u with PCP and monitor B/P. Client v/u. Discussed B/P and to decrease caffeine. 04/07/2025 ADHD (attention deficit hyperactivity disorder) (ICD-10 - F90.9) Client to f/u with PCP and monitor B/P, stability noted. Client v/u. 06/22/2025 ADHD (attention deficit hyperactivity disorder) (ICD-10 - F90.9) Client to f/u with PCP and monitor B/P, stability noted. Client v/u. 09/20/2024 Other Reasons, potential benefits, potential risks, interactions and side effects of all medications were discussed. The Patient/Guardian asked appropriate questions, appeared to understand the answers, and decided to accept the treatment and continue being followed. Alternatives and expected course without treatment were reviewed. The Patient/Guardian is aware of the need to contact the office or return for an earlier appointment if any problems or concerns arise. May also contact the 24-hour crisis hotline ([facility]), refer to the closest emergency room or call 911 if new symptoms arise of existing symptoms worsen. The Patient/Guardian is aware that this would apply to symptoms like: suicidal ideation, homicidal ideation, high risk behaviors, manic symptoms, psychotic symptoms, physical symptoms, or any other symptoms that may be dangerous to self or others. Greater than 50% of time spent on coordination and counseling where psychopharmacology as well as psychotherapeutic interventions were discussed along with review of treatments in the past. Education provided concerning need for adequate hydration. Patient/Guardian verbalized understanding of education, treatment plan and follow up. 10/05/2024 Other will fill out [facility] paperwork, recommending intermittent leave with leniency. Reasons, potential benefits, potential risks, interactions and side effects of all medications were discussed. The Patient/Guardian asked appropriate questions, appeared to understand the answers, and decided to accept the treatment and continue being followed. Alternatives and expected course without treatment were reviewed. The Patient/Guardian is aware of the need to contact the office or return for an earlier appointment if any problems or concerns arise. May also contact the 24-hour crisis hotline ([facility]), refer to the closest emergency room or call 911 if new symptoms arise of existing symptoms worsen. The Patient/Guardian is aware that this would apply to symptoms like: suicidal ideation, homicidal ideation, high risk behaviors, manic symptoms, psychotic symptoms, physical symptoms, or any other symptoms that may be dangerous to self or others. Greater than 50% of time spent on coordination and counseling where psychopharmacology as well as psychotherapeutic interventions were discussed along with review of treatments in the past. Education provided concerning need for adequate hydration. Patient/Guardian verbalized understanding of education, treatment plan and follow up. 11/24/2024 Other Reasons, potential benefits, potential risks, interactions and side effects of all medications were discussed. The Patient/Guardian asked appropriate questions, appeared to understand the answers, and decided to accept the treatment and continue being followed. Alternatives and expected course without treatment were reviewed. The Patient/Guardian is aware of the need to contact the office or return for an earlier appointment if any problems or concerns arise. May also contact the 24-hour crisis hotline ([facility]), refer to the closest emergency room or call 911 if new symptoms arise of existing symptoms worsen. The Patient/Guardian is aware that this would apply to symptoms like: suicidal ideation, homicidal ideation, high risk behaviors, manic symptoms, psychotic symptoms, physical symptoms, or any other symptoms that may be dangerous to self or others. Greater than 50% of time spent on coordination and counseling where psychopharmacology as well as psychotherapeutic interventions were discussed along with review of treatments in the past. Education provided concerning need for adequate hydration. Patient/Guardian verbalized understanding of education, treatment plan and follow up. This session was completed telephonically with client/parental/guard beatrice consent: Unable to determine movement status, assess appearance, affect, AIMS, or vital signs. 12/28/2024 Other Reasons, potential benefits, potential risks, interactions and side effects of all medications were discussed. The Patient/Guardian asked appropriate questions, appeared to understand the answers, and decided to accept the treatment and continue being followed. Alternatives and expected course without treatment were reviewed. The Patient/Guardian is aware of the need to contact the office or return for an earlier appointment if any problems or concerns arise. May also contact the 24-hour crisis hotline ([facility]), refer to the closest emergency room or call 911 if new symptoms arise of existing symptoms worsen. The Patient/Guardian is aware that this would apply to symptoms like: suicidal ideation, homicidal ideation, high risk behaviors, manic symptoms, psychotic symptoms, physical symptoms, or any other symptoms that may be dangerous to self or others. Greater than 50% of time spent on coordination and counseling where psychopharmacology as well as psychotherapeutic interventions were discussed along with review of treatments in the past. Education provided concerning need for adequate hydration. Patient/Guardian verbalized understanding of education, treatment plan and follow up. 02/08/2025 Other Reasons, potential benefits, potential risks, interactions and side effects of all medications were discussed. The Patient/Guardian asked appropriate questions, appeared to understand the answers, and decided to accept the treatment and continue being followed. Alternatives and expected course without treatment were reviewed. The Patient/Guardian is aware of the need to contact the office or return for an earlier appointment if any problems or concerns arise. May also contact the 24-hour crisis hotline ([facility]), refer to the closest emergency room or call 911 if new symptoms arise of existing symptoms worsen. The Patient/Guardian is aware that this would apply to symptoms like: suicidal ideation, homicidal ideation, high risk behaviors, manic symptoms, psychotic symptoms, physical symptoms, or any other symptoms that may be dangerous to self or others. Greater than 50% of time spent on coordination and counseling where psychopharmacology as well as psychotherapeutic interventions were discussed along with review of treatments in the past. Education provided concerning need for adequate hydration. Patient/Guardian verbalized understanding of education, treatment plan and follow up. 03/08/2025 Other Reasons, potential benefits, potential risks, interactions and side effects of all medications were discussed. The Patient/Guardian asked appropriate questions, appeared to understand the answers, and decided to accept the treatment and continue being followed. Alternatives and expected course without treatment were reviewed. The Patient/Guardian is aware of the need to contact the office or return for an earlier appointment if any problems or concerns arise. May also contact the 24-hour crisis hotline ([facility]), refer to the closest emergency room or call 911 if new symptoms arise of existing symptoms worsen. The Patient/Guardian is aware that this would apply to symptoms like: suicidal ideation, homicidal ideation, high risk behaviors, manic symptoms, psychotic symptoms, physical symptoms, or any other symptoms that may be dangerous to self or others. Greater than 50% of time spent on coordination and counseling where psychopharmacology as well as psychotherapeutic interventions were discussed along with review of treatments in the past. Education provided concerning need for adequate hydration. Patient/Guardian verbalized understanding of education, treatment plan and follow up. 04/07/2025 Other Reasons, potential benefits, potential risks, interactions and side effects of all medications were discussed. The Patient/Guardian asked appropriate questions, appeared to understand the answers, and decided to accept the treatment and continue being followed. Alternatives and expected course without treatment were reviewed. The Patient/Guardian is aware of the need to contact the office or return for an earlier appointment if any problems or concerns arise. May also contact the 24-hour crisis hotline ([facility]), refer to the closest emergency room or call 911 if new symptoms arise of existing symptoms worsen. The Patient/Guardian is aware that this would apply to symptoms like: suicidal ideation, homicidal ideation, high risk behaviors, manic symptoms, psychotic symptoms, physical symptoms, or any other symptoms that may be dangerous to self or others. Greater than 50% of time spent on coordination and counseling where psychopharmacology as well as psychotherapeutic interventions were discussed along with review of treatments in the past. Education provided concerning need for adequate hydration. Patient/Guardian verbalized understanding of education, treatment plan and follow up. This session was completed telephonically with client/parental/guard beatrice consent: Unable to determine movement status, assess appearance, affect, AIMS, or vital signs. 06/22/2025 Other Reasons, potential benefits, potential risks, interactions and side effects of all medications were discussed. The Patient/Guardian asked appropriate questions, appeared to understand the answers, and decided to accept the treatment and continue being followed. Alternatives and expected course without treatment were reviewed. The Patient/Guardian is aware of the need to contact the office or return for an earlier appointment if any problems or concerns arise. May also contact the 24-hour crisis hotline ([facility]), refer to the closest emergency room or call 911 if new symptoms arise of existing symptoms worsen. The Patient/Guardian is aware that this would apply to symptoms like: suicidal ideation, homicidal ideation, high risk behaviors, manic symptoms, psychotic symptoms, physical symptoms, or any other symptoms that may be dangerous to self or others. Greater than 50% of time spent on coordination and counseling where psychopharmacology as well as psychotherapeutic interventions were discussed along with review of treatments in the past. Education provided concerning need for adequate hydration. Patient/Guardian verbalized understanding of education, treatment plan and follow up. This session was completed telephonically with client/parental/guard beatrice consent: Unable to determine movement status, assess appearance, affect, AIMS, or vital signs. Plan Of Treatment No Information Insurance Providers Payer Name Payer Address Payer Phone Subscriber Number Group Number Insured Name Patient Relationship to Insured Coverage Start Date Coverage End Date MEDICAID [address] [place] [address] [id number] Felipe Stanton Self - patient is the insured 2 2 [facility] [address] [place] [address] [id number] Felipe Stanton Self - patient is the insured 2 MEDICAID [address] [place] [place] [address] [id number] Felipe Stanton Self - patient is the insured 2 [facility] [address] [place] [phone] [id number] Felipe Stanton Self - patient is the insured 2 2 [facility] [address] [place] [phone] [id number] Felipe Stanton Self - patient is the insured 2 2 [employer]ICA[employer] [address] [place] [address] [id number] Felipe Stanton Self - patient is the insured 2 2 [employer] [facility] [address] [place] [address] [id number] Felipe Stanton Self - patient is the insured 2 2 [email or web address] [address] [place] [address] [phone] [id number] Felipe Stanton Self - patient is the insured 2 2 Medical (General) History Medical History History ICD Code ANXIETY Surgical History Surgery Date(Month/Year) Internal Hemorrhoids 2016 Tympanic Membrane Wrist Hospitalization History Reason Date(Month/Year) [place]- C. diff 2020 Pneumothorax 2016 Panic attack 2014
--- OUTSIDE RECORDS SUMMARY | 2025-08-11 16:23 | XMS_ITS | Clinical Summary ---
Author Organization [facility] Health Address [address] [place] [address] Care Team Providers Care Math And Science Division Chair Name Role Phone Unavailable Primary Care Provider Unavailabl e Allergies Active Allergy Reactions Criticality Noted Date Comments Hydrocodone-Acetaminophen Itching Low 02/14/2016 Medications lisinopriL (PRINIVIL,ZESTR IL) 10 mg tablet Take 10 mg by mouth 1 (one) time each day. Active losartan (COZAAR) 25 mg tablet Take 25 mg by mouth 1 (one) time each day. 07/29/2024 Active traZODone (DESYREL) 50 mg tablet 1 (one) time each day at the same time. Active carvediloL (COREG) 6.25 mg tablet Take 6.25 mg by mouth in the morning and 6.25 mg in the evening. 12/31/2024 Active Vyvanse 50 mg capsule Take 50 mg by mouth 1 (one) time each day at the same time. 12/28/2024 Active amLODIPine (NORVASC) 10 mg tablet Take 10 mg by mouth 1 (one) time each day. 01/19/2025 Active ARIPiprazole (ABILIFY) 15 mg tablet 1 (one) time each day at the same time. Active Active Problems Problem Noted Date Diagnosed Date Hx of chest pain 01/19/2025 Overview (02/17/2025): Has hx of chest pain, EKG done in office last time that was NSR. The chest pain does worry him. Alcohol use disorder 09/08/2024 Attention deficit disorder (ADD) in adult 2023 Severe major depression without psychotic featur es 09/08/2024 Back spasm 07/29/2024 Overview (10/07/2024): Pulled a muscle in his back while at work. Reports tightness and spasms. Hypertension 07/29/2024 Overview (10/07/2024): Chronic condition. Is currently taking amlodipine 2.5 mg daily and lisinopril 10 mg daily. He thinks the lisinopril is causing a dry cough. Proteinuria 07/29/2024 Overview (10/07/2024): Follows with nephrology. Diaz an apt next week. Subclinical hyperthyroidism 07/29/2024 Overview (10/07/2024): Noted from his past blood work. Will recheck today. Uncontrolled hypertension 07/29/2024 Overview (02/17/2025): Chronic condition that is not controlled. He [...] extremity edema. Denies any orthopnea or PND. Proteinuria 07/29/2024 Overview (02/17/2025): Follows with nephrology. Subclinical hyperthyroidism 07/29/2024 Overview (02/17/2025): Will recheck today. Anxiety and depression 06/21/2023 Overview (10/07/2024): Following with psychiatry. Is currently doing okay. No current SI/HI. Posttraumatic stress disorder 06/21/2023 Overview (10/07/2024): Follows with psychiatry. Is currently doing okay. Denies any current SI/HI. At risk for obstructive sleep apnea 06/21/2023 Overview (10/07/2024): Has been ordered in the past but has not been done yet. Attention deficit hyperactiv ity disorder (ADHD), combined type 06/21/2023 Overview (10/07/2024): Currently taking Vyvanse 60 mg daily prescribed from his psychiatrist. They are aware of his blood pressure has been elevated. He does not take every day. He states his blood pressure still remains elevated even when he has not sentences stimulant. Hematuria 06/21/2023 Overview (10/07/2024): Following with nephrology Dr.Kanungo Turner- Other fatigue 06/21/2023 Vapes nicotine containing substance 06/21/2023 Overview (10/07/2024): Is not ready to quit at this time. Anxiety and depression 06/21/2023 Overview (02/17/2025): He is doing better. He is not [...] a follow-up with a psychiatrist next month. At risk for obstructive sleep apnea 06/21/2023 Overview (02/17/2025): Needs to schedule this still. Attention deficit hyperactiv ity disorder (ADHD), combined type 06/21/2023 Overview (02/17/2025): Is not taking Vyvance every day. We talked about switching to a nonstimulant. He still needs to discus this with psychiatry. Hematuria 06/21/2023 Overview (02/17/2025): Following with nephrology Dr.Kanungo Turner. Has a renal ultrasound coming up. Vapes nicotine containing substance 06/21/2023 Overview (02/17/2025): Recently quit vaping. Other specified postprocedural states 03/07/2016 Personal history of other diseases of the digest sherri system 03/07/2016 Hemorrhage of anus and rectum 02/14/2016 Immunizations Immunization Administration Dates Next Due Influenza, MDCK, trivalent, PF 09/18/2024 Influenza, unspecified 02/12/2016 Tdap 09/18/2017 Social History Tobacco Use Types Packs/Day Years Used Date Smoking Tobacco: Never Assessed Sex and Gender Information Value Date Recorded Sex Assigned at Not on file Legal Sex Male 12:23 PM PST Gender Identity Not on file Sexual Orientation Not on file Last Filed Vital Signs Vital Sign Reading Time Taken Comments Blood Pressure 147/104 03/31/2025 7:57 AM CDT Pulse 83 03/31/2025 7:57 AM CDT Temperature - - Respiratory Rate - - Oxygen Saturation - - Inhaled Oxygen Concentration - - Weight 90.7 kg (200 lb) 11/25/2024 1:52 PM SALES STORE CHECKER Height 177.8 cm (5' 10) 11/25/2024 1:52 PM SALES STORE CHECKER Body Mass Index 28.7 11/25/2024 1:52 PM SALES STORE CHECKER Plan of Treatment Health Maintenance Due Date Last Done Comments Dental Oral Exam 04/07/2025 10/07/2024 Dental X-Ray: Bitewings 04/07/2025 10/07/2024 Velscope Screening 06/23/2025 12/24/2024 Periodontal Maintenance 07/02/2025 03/31/2025 Scaling and Root Planing 01/07/2027 025, 12/24/2024, 12/24/2024, Additional history exists Dental CBCT 10/07/2027 10/07/2024 Dental X-Ray: Panoramic 10/08/2027 10/07/2024 Dental X-Ray: Full Mouth 10/09/2027 10/08/2024, 09/18 Procedures Procedure Name Priority Date/Time Associated Diagnosis Comments PERIO MAINTENANCE Routine 03/31/2025 8:0 0 AM CDT LR PERIODONTAL SCALING AND ROOT PLANING - FOUR OR MORE TEETH PER QUADRANT Routine 12/24/2024 8:00 AM SALES STORE CHECKER ADJUNCTIVE PRE-DIAGNOSTIC TEST THAT AIDS IN DETECTION OF MUCOSAL ABNORMALITIES Routine 12/24/2024 8:00 AM SALES STORE CHECKER CON[place] [facility]AM CT CAPTURE AND INTERPRETATION WITH FIELD OF VIEW OF BOTH JAWS; WITH OR WITHOUT CRANIUM Routine 10/07/2024 8:00 AM SALES STORE CHECKER COMPREHENSIVE ORAL EVALUATION - NEW OR ESTABLISHED PATIENT Routine 10/07/2024 8:00 AM SALES STORE CHECKER Encounter for dental examination and cleaning without abnormal findings from Last 3 Months or Most Recently Relevant to Health Maintenance [facility]
--- OUTSIDE RECORDS SUMMARY | 2025-08-11 16:23 | XMS_ITS | Patient Health Record ---
Author Organization [facility] [employer] Address [address] [place] [address] Care Team Providers Care Lead Sewage Plant Operator Name Role Phone Bailey Hodge Unavailable [phone] Reason For Referral No Information Medications Medication SIG (Take, Route, Frequency, Duration) Notes Start Date End Date Status Lisinopril 10 MG Tablet Oral Active Vyvanse 40 MG Capsule Oral Active hydrOXYzine HCl 25 MG Tablet Oral Active traZODone HCl 50 MG Tablet Oral Active Dicyclomine HCl 20 MG Tablet Oral Active buPROPion HCl ER (XL) 150 MG Tablet Extended Release 24 Hour Oral Active Azithromycin 250 MG Tablet Oral Active Gabapentin 100 MG Capsule Oral Active Vilazodone HCl 10 MG Tablet Oral Active Vyvanse 60 MG Capsule Oral Active amLODIPine Besylate 10 MG Tablet Oral Active Vilazodone HCl 20 MG Tablet Oral Active Vyvanse 50 MG Capsule Oral Active amLODIPine Besylate 2.5 MG Tablet Oral Active buPROPion HCl ER (XL) 300 MG Tablet Extended Release 24 Hour Oral Active Social History Social History Additional Details Category Social Info Options Details Migrated Social History Migrated Social History Tobacco Years: Former smoker 07/08/2023 Plan Of Treatment No Information Insurance Providers Payer Name Payer Address Payer Phone Subscriber Number Group Number Insured Name Patient Relationship to Insured Coverage Start Date Coverage End Date [employer] [employer] [address] [place] [address] [id number] CHARISSA ORTIZ Self - patient is the insured [place] [address] [address] [place] [address] [id number] CHARISSA ORTIZ Self - patient is the insured
--- OUTSIDE RECORDS SUMMARY | 2025-08-11 16:23 | XMS_ITS | Encounter Summary ---
Author Organization [facility] Address [address] [place] [address] Care Team Providers Care Mainframe Systems Administrator Name Role Phone Cony Blake NP Primary Care Provider [phone] Encounter Details Date Type Department Care Team (Late st Contact Info) Description 07/08/2023 MyChart Message Enc [facility] [address] [address] Cony Blake NP [address] [address] follow up Social History Tobacco Use Types Packs/Day Years Used Date Smoking Tobacco: Former Cigarettes Passive Smoke Exposure: Past Smokeless Tobacco: Current Chew Alcohol Use Standard Drinks/Week Comments Not Currently 0 (1 standard drink = 0.6 oz pur e alcohol) PHQ-2 Answer Date Recorded Patient Health Questionnaire-2 Score 2 06/20/2023 Sex and Gender Information Value Date Recorded Sex Assigned at Male 12/31/2024 8:40 AM TOWER HAND Legal Sex Male 8:06 PM CDT Gender Identity Male 12/31/2024 8:40 AM TOWER HAND Sexual Orientation Straight 12/31/2024 8: 40 AM TOWER HAND documented as of this encounter Plan of Treatment Upcoming Encounters Date Type Department Care Team (Late st Contact Info) Description 09/19/2025 2:20 PM TOWER HAND Office Visit [facility] [address] [facility] [address] [place] [address] Cony Blake NP [address] [place] [address] documented as of this encounter Visit Diagnoses Not on filedocumented in this encounter Additional Health Concerns Infection Onset Date Last Indicated Resolved Time COVID-19 Rule Out 09/07/2024 09/07/2024 09/07/2024 9:27 PM CDT Assessment Noted Time PHQ-9 Depression Total Score: 14 023 11:24 AM CDT documented as of this encounter Care Teams Mainframe Systems Administrator Relationship Specialty Start Date End Date Cony Blake NP [address] [place] [address] PCP - General NURSE PRACTITIONER 06/20/23 documented as of this encounter
--- OUTSIDE RECORDS SUMMARY | 2025-08-11 16:23 | XMS_ITS | Clinical Summary ---
Author Organization [facility] Address [address] [place] [address] Care Team Providers Care Digital Cartographer Name Role Phone [facility] Primary Care Provi cam Source Comments [facility],non-owned Affiliates and Associated Physician Practices is amultiple site organization consisting of ambulatory clinics and hospital sitesin [place], [place], [place] and [place]. This disclosure is being madepursuant to the Care Everywhere program and may not contain all information available regarding this patient. Last updated 18.[facility] Allergies Active Allergy Reactions Criticality Noted Date Comments Hydrocodone-Acetaminophen Itching Low 02/14/2016 Hydrocodone-Acetaminophen Itching Low 02/14/2016 Medications * This document contains information received from the source organization and may not represent a complete record from that organization. * Be aware that medications may not be up to date on this document. Alwaysverify current medications with the patient. lisinopril (Prinivil; Zestril) 10 MG tabletIndicatio ns:Hypertension Take 1 (one) tablet by mouth once daily Reasons: High Blood Pressure Active amLODIPine (Norvasc) 2.5 MG tabletIndicatio ns:Hypertension Take 1 (one) tablet by mouth once daily Reasons: High Blood Pressure Active cyclobenzaprine (Flexeril) 5 MG tabletIndicatio ns:Muscle Spasm Take 1 (one) tablet by mouth 3 times daily as needed Reasons: Muscle Spasm Active losartan (Cozaar) 25 MG tabletIndicatio ns:Hypertension Take 1 (one) tablet by mouth once daily Active hydrOXYzine HCl (Atarax) 50 MG tabletIndicatio ns:Anxiety Take 1 (one) tablet by mouth 2 times daily as needed Reasons: Feeling Anxious 30 tablet 1 4 Active ARIPiprazole (Abilify) 5 MG tabletIndicatio ns:Major Depressive Disorder Take 1 (one) tablet by mouth once daily for 15 days Reasons: Major Depressive Disorder 15 tablet 1 4 Active Active Problems Problem Noted Date Diagnosed Date Severe major depression without psychotic featur es 09/08/2024 Attention deficit disorder (ADD) in adult 2023 Post traumatic stress disorder (PTSD) 09/08/2024 Alcohol use disorder 09/08/2024 Other specified postprocedural states 03/07/2016 Personal history of other diseases of the digest sherri system 03/07/2016 Hemorrhage of anus and rectum 02/14/2016 Social History Tobacco Use Types Packs/Day Years Used Date Smoking Tobacco: Every Day Cigarettes 1 22.7 Started: 2002 Tobacco Cessation:Ready to Q uit: No; Counseling Given: Yes Alcohol Use Standard Drinks/Week Comments Yes 35 (1 standard drink = 0.6 oz pu re alcohol) AUDIT-C Answer Date Recorded Q1: How often do you have a drink containing alcohol? 4 or more times a week 09/08/2024 Q2: How many drinks containi ng alcohol do you have on a typical day when you are drinking? 5 or 6 Q3: How often do you have si x or more drinks on one occasion? Never 09/08/2024 Overall Financial Resource Strain (CARDIA) Answe r Date Recorded How hard is it for you to pa y for the very basics like food, housing, medical care, and heating? Not very hard 09/08/2024 [facility] - Occupational Stress Questionnaire Answer Date Recorded Do you feel stress - tense, restless, nervous, or anxious, or unable to sleep at night because your mind is troubled all the time - these days? To some extent 09/08/2024 Hunger Vital Sign Answer Date Recorded Within the past 12 months, y ou worried that your food would run out before you got the money to buy more. Never true 09/08/20 24 Within the past 12 months, t he food you bought just didn't last and you didn't have money to get more. Never true 09/08/2024 PRAPARE - Transportation Answer Date Re corded In the past 12 months, has l ack of transportation kept you from medical appointments or from getting medications? No 08/18 In the past 12 months, has l ack of transportation kept you from meetings, work, or from getting things needed for daily living? No 09/08/2024 Housing Stability Vital Sign Answer Jaime e Recorded In the last 12 months, was t here a time when you were not able to pay the mortgage or rent on time? No 09/08/2024 In the past 12 months, how m any times have you moved where you were living? 0 09/08/2024 At any time in the past 12 m [facility], were you homeless or living in a [facility] (including now)? No 09/08/2024 Sex and Gender Information Value Date Recorded Sex Assigned at Not on file Legal Sex Male 5:50 PM AUTOMOTIVE PARTS INTERPRETER Gender Identity Not on file Sexual Orientation Not on file Last Filed Vital Signs Vital Sign Reading Time Taken Comments Blood Pressure 129/92 09/11/2024 7:27 AM CDT Pulse 84 09/11/2024 7:27 AM CDT Temperature 36.7 C (98.1 F) 09/11/2024 7:27 AM CDT Respiratory Rate 16 09/11/2024 7:27 AM CDT Oxygen Saturation 98% 09/11/2024 7:27 AM CDT Inhaled Oxygen Concentration - - Weight 82.8 kg (182 lb 9.6 oz) 09/08/2024 10:25 AM CDT Height 177.8 cm (5' 10) 09/08/2024 10:25 AM CDT Body Mass Index 26.2 09/08/2024 10:25 AM CDT Plan of Treatment Health Maintenance Due Date Last Done Comments HIV SCREENING 2000 HEPATITIS C SCREENING 06/14/2003 DTAP/TDAP/TD VACCINES (1 - Tdap) 2004 HEPATITIS B VACCINE (1 of 3 - 19+ 3-dose series) 2004 PNEUMOCOCCAL VACCINE (1 of 2 - PCV) 2004 HPV VACCINE (1 - 3-dose SCDM series) 2012 DEPRESSION SCREENING 11/17/2024 COVID-19 VACCINE (1 - 2023-2 5 season) 2025 INFLUENZA VACCINE (#1) 2025 LIPID TESTING 09/09/2029 09/09/2024 ZOSTER VACCINE (1 of 2) 2035 HIB VACCINE Aged Out No longer eligi ble based on patient's age to complete this topic MENINGOCOCCAL (Group B) VACC INE SHARED DECISION-MAKING Aged Out No longer eligibl e based on patient's age to complete this topic MENINGOCOCCAL GROUPS A/C/Y/W VACCINE Aged Out No longer eligible b ased on patient's age to complete this topic Procedures Procedure Name Priority Date/Time Associated Diagnosis Comments LIPID PROFILE Routine 09/09/2024 6:13 AM CDT from Last 3 Months or Most Recently Relevant to Health Maintenance Results * (ABNORMAL) LIPID PROFILE (09/09/2024 6:13 AM CDT) [facility] Cholesterol 186 <200 mg/dL 09/09/2024 6:44 AM CDT [facility] Triglycerides 155(H) <150 mg/dL 09/09/2024 6:44 AM CDT [facility] HDL Cholesterol 53 >40 mg/dL 6:44 AM CDT [facility] Chol HDL Ratio 3.5 1.0 - 6.0 09/09/2024 6:44 AM CDT [facility] LDL Calculated 102 65 - 130 mg/dL 09/09/2024 6:44 AM CDT [facility] VLDL Calculated 31(H) <=30 mg/dL 6:44 AM CDT [facility] Blood BLOOD SPECIMEN / Unknown Lab Venipuncture / Unknown 09/09/2024 6:13 AM CDT 09/09/2024 6:17 AM CDT [facility]ATORY - 09/09/2024 6:44 AM CDT Lipid Profile Comment: CHOLESTEROL LEVEL..................CLINICAL INTERPRETATION LESS THAN 200 MG/DL..............................DESIRABLE 200-239 MG/DL..............................BORDERLINE HIGH GREATER THAN 240 MG/DL................................HIGH LDL-CHOLESTEROL LEVEL..............CLINICAL INTERPRETATION LESS THAN 100 MG/DL................................OPTIMAL 100-129 MG/DL.................................NEAR OPTIMAL GREATER THAN 160 MG/DL...........................HIGH RISK HDL RISK LEVEL GREATER THEN 60 MG/DL............................DECREASED 40-60 MG/DL........................................AVERAGE LESS THAN 40 MG/DL...............................INCREASED TRIGLYCERIDE LEVEL..................CLINICAL INTERPRETATION LESS THAN 150 MG/DL...............................DESIRABLE 150-199 MG/DL...............................BORDERLINE HIGH 200-499 MG/DL..........................................HIGH GREATER THAN 500..................................VERY HIGH THE NATIONAL CHOLESTEROL EDUCATION PROGRAM HAS SET THE ABOVE GUIDELINES (REFERANCE VALUES) FOR CHOLESTEROL AND HDL. RISK ASSOCIATED WITH CHOLESTEROL/HDL RATIOS RISK....................MALE RATIO.............FEMALE RATIO 1/2 AVERAGE.................<3.4.......................<3.3 LOW RISK.................... 4.0 ...................... 3.8 AVERAGE..................... 5.0 ...................... 4.5 2X AVERAGE.................. 9.5 ...................... 7.0 3X AVERAGE...................>23........................>11 Yesi Conteh SLATE ROOFER HELPER-MANAGER LAB LAB - CHEMISTRY ORDERAB LES Final Result Performing Organization Address City/State/[facility] Co de Phone Number [facility] [address] [place] [address], [facility] from Last 3 Months or Most Recently Relevant to Health Maintenance Insurance [facility] Advance Directives * Full Code (Latest Code Status on File) Date Activated Date Inactivated Comments 09/08/2024 8:38 AM 09/11/2024 11:23 AM Care Teams Digital Cartographer Relationship Specialty Start Date End Date Cony Blake APRN-FRANKIE [address] [place] [address] PCP - General Nurse Practitioner 09/08/24
--- OUTSIDE RECORDS SUMMARY | 2025-08-11 16:23 | XMS_ITS | Encounter Summary ---
Author Organization [facility] Health Address [address] [place] [address] Care Team Providers Care Export Freight Specialist Name Role Phone Unavailable Primary Care Provider Unavailabl e Prior Encounters Date Type Department Care Team Description 03/31/2025 8:00 AM CDT Office Visit [facility] [address] [place] [address] Mumtaz Yusuf [facility] 02/17/2025 Travel 02/17/2025 8:00 AM CDT Office Visit [facility] [address] [place] [address] Salma Perales, ERIBERTO Dental caries, unspecified (Primary Dx) 01/20/2025 Travel 01/20/2025 8:00 AM ORE PUNCHER Office Visit [facility] [address] [place] [address] Salma Perales, ERIBERTO Dental caries, unspecified (Primary Dx) 01/06/2025 Travel 12/24/2024 Travel 12/24/2024 8:00 AM ORE PUNCHER Office Visit [facility] [address] [place] [address] Mumtaz Yusuf [facility] 12/23/2024 Travel 12/23/2024 8:00 AM ORE PUNCHER Office Visit [facility] [address] [place] [place] [address] Salma Perales DDS 12/14/2024 Travel 12/14/2024 8:00 AM ORE PUNCHER Office Visit [facility] [address] [place] [address] Gideon Gutierrez, DDS 12/08/2024 8:00 AM ORE PUNCHER Office Visit [facility] [address] [place] [address] Salma Perales DDS Dental caries, unspecified (Primary Dx) 11/25/2024 Travel 11/25/2024 12:45 PM ORE PUNCHER Office Visit [facility] [address] [place] [address] Fátima Lees, DDS 11/16/2024 8:00 AM ORE PUNCHER Office Visit [facility] [address] [place] [address] Salma Perales, ANASTACIAS 11/02/2024 Travel 11/02/2024 8:00 AM ORE PUNCHER Office Visit [facility] [address] [place] [address] Salma Perales DDS Dental caries, unspecified (Primary Dx) 10/07/2024 Travel 10/07/2024 8:00 AM ORE PUNCHER Office Visit [facility] [address] [place] [address] Salma Perales DDS Dental caries, unspecified (Primary Dx); Encounter for dental examination and cleaning without abnormal findings Last Filed Vital Signs Vital Sign Reading Time Taken Comments Blood Pressure 147/104 03/31/2025 7:57 AM CDT Pulse 83 03/31/2025 7:57 AM CDT Temperature - - Respiratory Rate - - Oxygen Saturation - - Inhaled Oxygen Concentration - - Weight 90.7 kg (200 lb) 11/25/2024 1:52 PM ORE PUNCHER Height 177.8 cm (5' 10) 11/25/2024 1:52 PM ORE PUNCHER Body Mass Index 28.7 11/25/2024 1:52 PM ORE PUNCHER Plan of Treatment Not on file Procedures Procedure Name Priority Date/Time Associated Diagnosis Comments ORAL HYGIENE INSTRUCTIONS Routine 2024 8:00 AM CDT PERIO MAINTENANCE Routine 03/31/2025 8:0 0 AM CDT 22 F RESIN-BASED COMPOSITE - ONE SURFACE, ANTERIOR Routine 02/17/2025 8:00 AM CDT 18 MO RESIN-BASED COMPOSITE - TWO SURFACES, POSTERIOR Routine 02/17/2025 8:00 AM CDT Dental caries, unspecified 20 DO RESIN-BASED COMPOSITE - TWO SURFACES, POSTERIOR Routine 02/17/2025 8:00 AM CDT Dental caries, unspecified 21 MDB RESIN-BASED COMPOSITE - THREE SURFACES, POSTERIOR Routine 02/17/2025 8:00 AM CDT 31 MDB RESIN-BASED COMPOSITE - THREE SURFACES, POSTERIOR Routine 01/20/2025 8:00 AM ORE PUNCHER 5 DO RESIN-BASED COMPOSITE - TWO SURFACES, POSTERIOR Routine 01/20/2025 8:00 AM ORE PUNCHER Dental caries, unspecified 4 MOD RESIN-BASED COMPOSITE - THREE SURFACES, POSTERIOR Routine 01/20/2025 8:00 AM ORE PUNCHER Dental caries, unspecified ADJUNCTIVE PRE-DIAGNOSTIC TEST THAT AIDS IN DETECTION OF MUCOSAL ABNORMALITIES Routine 12/24/2024 8:00 AM ORE PUNCHER UL ANTIBACT IRR/QUAD Routine 12/24/2024 8:00 AM ORE PUNCHER 9 UL PERIODONTAL SCALING AND ROOT PLANING - ONE TO THREE TEETH PER QUADRANT Routine 12/24/2024 8:00 AM ORE PUNCHER LL ANTIBACT IRR/QUAD Routine 12/24/2024 8:00 AM ORE PUNCHER 19 LL PERIODONTAL SCALING AND ROOT PLANING - ONE TO THREE TEETH PER QUADRANT Routine 12/24/2024 8:00 AM ORE PUNCHER UR ANTIBACT IRR/QUAD Routine 12/24/2024 8:00 AM ORE PUNCHER 7,3 UR PERIODONTAL SCALING AND ROOT PLANING - ONE TO THREE TEETH PER QUADRANT Routine 12/24/2024 8:00 AM ORE PUNCHER LR ORAL HYGIENE INSTRUCTIONS Routine 12/24/2024 8:00 AM ORE PUNCHER LR PERIODONTAL SCALING AND ROOT PLANING - FOUR OR MORE TEETH PER QUADRANT Routine 12/24/2024 8:00 AM ORE PUNCHER LR ANTIBACT IRR/QUAD Routine 12/24/2024 8:00 AM ORE PUNCHER 6 CEMENT CROWN Routine 12/23/2024 8:00 AM ORE PUNCHER NC X-RAY Routine 12/23/2024 8:00 AM ORE PUNCHER NC X-RAY Routine 12/23/2024 8:00 AM ORE PUNCHER 9 CEMENT CROWN Routine 12/23/2024 8:00 AM ORE PUNCHER 8 CEMENT CROWN Routine 12/23/2024 8:00 AM ORE PUNCHER 7 CEMENT CROWN Routine 12/23/2024 8:00 AM ORE PUNCHER RECEMENT TEMPORARY Routine 12/14/2024 8: 00 AM ORE PUNCHER 6 CROWN PFM POST Routine 12/08/2024 8:00 AM ORE PUNCHER Dental caries, unspecified 9 CROWN PFM POST Routine 12/08/2024 8:00 AM ORE PUNCHER Dental caries, unspecified 8 CROWN PFM POST Routine 12/08/2024 8:00 AM ORE PUNCHER Dental caries, unspecified 7 CROWN PFM POST Routine 12/08/2024 8:00 AM ORE PUNCHER Dental caries, unspecified OS CONSULT Routine 11/25/2024 12:45 PM ORE PUNCHER 2 EXTRACTION, ERUPTED TOOTH REQUIRING REMOVAL OF BONE AND/OR SECTIONING OF TOOTH Routine 11/25/2024 12:45 PM ORE PUNCHER COLLECTION AND APPLICATION OF AUTOLOGOUS BLOOD CONCENTRATE PRODUCT Routine 11/25/2024 12:45 PM ORE PUNCHER 2 UR PRIMARY CLOSURE OF A SINUS PERFORATION Routine 11/25/2024 12:45 PM ORE PUNCHER NC X-RAY Routine 11/16/2024 8:00 AM ORE PUNCHER NC X-RAY Routine 11/16/2024 8:00 AM ORE PUNCHER 11 CEMENT CROWN Routine 11/16/2024 8:00 AM ORE PUNCHER 10 CEMENT CROWN Routine 11/16/2024 8:00 AM ORE PUNCHER 11 CORE BUILDUP, INCLUDING ANY PINS WHEN REQUIRED Routine 11/02/2024 8:00 AM ORE PUNCHER 10 CORE BUILDUP, INCLUDING ANY PINS WHEN REQUIRED Routine 11/02/2024 8:00 AM ORE PUNCHER 11 CROWN PFM POST Routine 11/02/2024 8:0 0 AM ORE PUNCHER Dental caries, unspecified 10 CROWN PFM POST Routine 11/02/2024 8:0 0 AM ORE PUNCHER Dental caries, unspecified INTRAORAL PHOTO Routine 10/07/2024 8:00 AM ORE PUNCHER INTRAORAL PHOTO Routine 10/07/2024 8:00 AM ORE PUNCHER INTRAORAL PHOTO Routine 10/07/2024 8:00 AM ORE PUNCHER INTRAORAL PHOTO Routine 10/07/2024 8:00 AM ORE PUNCHER ADDITIONAL X-RAY Routine 10/07/2024 8:00 AM ORE PUNCHER ADDITIONAL X-RAY Routine 10/07/2024 8:00 AM ORE PUNCHER ADDITIONAL X-RAY Routine 10/07/2024 8:00 AM ORE PUNCHER ADDITIONAL X-RAY Routine 10/07/2024 8:00 AM ORE PUNCHER ADDITIONAL X-RAY Routine 10/07/2024 8:00 AM ORE PUNCHER SINGLE X-RAY Routine 10/07/2024 8:00 AM ORE PUNCHER BITEWINGS - FOUR RADIOGRAPHIC IMAGES Routine 10/07/2024 8:00 AM ORE PUNCHER [facility] CT CAPTURE AND INTERPRETATION WITH FIELD OF VIEW OF BOTH JAWS; WITH OR WITHOUT CRANIUM Routine 10/07/2024 8:00 AM ORE PUNCHER COMPREHENSIVE ORAL EVALUATION - NEW OR ESTABLISHED PATIENT Routine 10/07/2024 8:00 AM ORE PUNCHER Encounter for dental examination and cleaning without abnormal findings 30 B AMALGAM FILLING Routine 10/07/2024 12:00 AM ORE PUNCHER 28 B AMALGAM FILLING Routine 10/07/2024 12:00 AM ORE PUNCHER 19 DOL AMALGAM FILLING Routine 4 12:00 AM ORE PUNCHER 19 B COMPOSITE FILLING Routine 4 12:00 AM ORE PUNCHER 18 B AMALGAM FILLING Routine 10/07/2024 12:00 AM ORE PUNCHER 13 MOD AMALGAM FILLING Routine 4 12:00 AM ORE PUNCHER 12 B COMPOSITE FILLING Routine 4 12:00 AM ORE PUNCHER 12 MOD AMALGAM FILLING Routine 4 12:00 AM ORE PUNCHER 11 MIDF COMPOSITE FILLING Routine 2023 12:00 AM ORE PUNCHER 10 MDF COMPOSITE FILLING Routine 12:00 AM ORE PUNCHER 9 MDF COMPOSITE FILLING Routine 10/07/20 24 12:00 AM ORE PUNCHER 8 MDF COMPOSITE FILLING Routine 10/07/20 24 12:00 AM ORE PUNCHER 7 MDF COMPOSITE FILLING Routine 10/07/20 12:00 AM ORE PUNCHER 5 B COMPOSITE FILLING Routine 10/07/2024 12:00 AM ORE PUNCHER 3 DO AMALGAM FILLING Routine 10/07/2024 12:00 AM ORE PUNCHER 6 MIDF COMPOSITE FILLING Routine 12:00 AM ORE PUNCHER Visit Diagnoses Diagnosis Start Date Dental caries, unspecified 10/07/2024 Encounter for dental examination and cleaning without abnormal findings 10/07/2024 Dental caries, unspecified 11/02/2024 Dental caries, unspecified 12/08/2024 Dental caries, unspecified 01/20/2025 Dental caries, unspecified 02/17/2025 [facility]
== END 2025-08-11 13:58 | disposition home or self-care (01) ==
PROVIDERS: Emergency Provider Nurse Practitioner Family; PCP Nurse Practitioner
DX: K43.9 Ventral hernia without obstruction or gangrene (principal); F17.210 Nicotine dependence, cigarettes, uncomplicated
CPT/HCPCS: 99213; G0463

== ENCOUNTER 2025-09-21 13:09 | Emergency (ER) | payer BC, MEDICAID, SELFPAY ==
--- OUTSIDE RECORDS SUMMARY | 2025-05-17 10:00 | XMS_ITS ---
Author Organization [facility] Address [address] [place] [address] Care Team Providers Care Billing Rep Name Role Phone Venus Meade Primary Care Provider REASON FOR VISIT 4 week FU Social History Sex Assigned At : Social History Observation Description Sex Assigned At Male Encounters Encounter Location Date Provider Diagnosis [address] [place] [address] 05/17/2025 Venus Meade Plan Of Treatment Next Appt Details Provider Name:Venus portillo, 09/28/2025 03:00:00 PM, [address] [facility], [place], [address], Progress Notes * Felipe ORTIZDOB:1985 ( 40 yo M)Acc No.[id number]:05/17/2025 UNLOCKED PROGRESS NOTE Patient: Felipe CRUZ Provider: ROBERT Malave, UTILIZATION SPECIALIST, OPERATIONS GENERAL AGENT-C :1985 A ge:39 Y S ex:Male Date:05/17/2025 Address:[address] [facility] Subjective: * Chief Complaints: * 1 . 4 week FU. * Medical History: Objective: * Vitals: Assessment: Plan: * Treatment: * * Electronic signature of Reshma Meade , [id number] on 09/22/2025 at 11:46 AM RADIATION OFFICER Sign off status: Pending * Provider: Sam Meade MSN, UTILIZATION SPECIALIST, OPERATIONS GENERAL AGENT-C Date: 0 05/17/2025 Generated for Tash pichardo/Edwin/Ryley on: 1 11/22/2024 11:46 AM RADIATION OFFICER
--- OUTSIDE RECORDS SUMMARY | 2025-06-14 06:00 | XMS_ITS ---
Author Organization [facility] Address [address] [place] [address] Care Team Providers Care Efficiency Engineer Name Role Phone Venus Meade Primary Care Provider REASON FOR VISIT Needs to R/S - mlr missed last appt- 4 week f u Social History Sex Assigned At : Social History Observation Description Sex Assigned At Male Encounters Encounter Location Date Provider Diagnosis [address] [place] [address] 06/14/2025 Venus Meade Plan Of Treatment Next Appt Details Provider Name:Venus portillo, 09/28/2025 03:00:00 PM, [address] [facility], [place], [address], Progress Notes * Felipe ORTIZDOB:1985 ( 40 yo M)Acc No.[id number]:06/14/2025 UNLOCKED PROGRESS NOTE Patient: Felipe CRUZ Provider: Sam Meade, MSN, AUTO PARTS DELIVERY DRIVER, CHIEF REVENUE OFFICER-C :1985 A ge:39 Y S ex:Male Date:06/14/2025 Address:[address] [facility] Subjective: * Chief Complaints: * 1 . Needs to R/S - mlr missed last appt- 4 week f u. * Medical History: Objective: * Vitals: Assessment: Plan: * Treatment: * * Electronic signature of Reshma Meade , [id number] on 09/22/2025 at 11:46 AM FREIGHT SHIPPING AGENT Sign off status: Pending * Provider: Sam Meade, MSN, AUTO PARTS DELIVERY DRIVER, CHIEF REVENUE OFFICER-C Date: 0 06/14/2025 Generated for Tash pichardo/Edwin/Ryley on: 11/22/2024 11:46 AM FREIGHT SHIPPING AGENT
--- OUTSIDE RECORDS SUMMARY | 2025-08-29 07:40 | XMS_ITS ---
Author Organization [facility] Address [address] [place] [address] Care Team Providers Care Programmer Name Role Phone Venus Meade Primary Care Provider [phone] REASON FOR VISIT 3 Week F/U Social History Sex Assigned At : Social History Observation Description Sex Assigned At Male Encounters Encounter Location Date Provider Diagnosis [address] [place] [address] 08/29/2025 Venus Meade Plan Of Treatment Next Appt Details Provider Name:Venus portillo, 09/28/2025 03:00:00 PM, [address] [place] [address] , [place], [address], Progress Notes * Felipe ORTIZDOB:1985 ( 40 yo M)Acc No.[id number]:08/29/2025 UNLOCKED PROGRESS NOTE Patient: Felipe CRUZ Provider: ROBERT Malave, CABIN OUTFITTER, QUILTING SUPERVISOR-C :1985 A ge:40 Y S ex:Male Date:08/29/2025 Address:[address] [facility] Subjective: * Chief Complaints: * 1 . 3 Week F/U. * Medical History: Objective: * Vitals: Assessment: Plan: * Treatment: * * Electronic signature of Reshma Meade , [id number] on 09/22/2025 at 11:46 AM BLOOD BANK LABORATORY TECHNICIAN Sign off status: Pending * Provider: Sam Meade MSN, CABIN OUTFITTER, QUILTING SUPERVISOR-C Date: Generated for Tash pichardo/Edwin/Keniaitting on: 11/22/2024 11:46 AM BLOOD BANK LABORATORY TECHNICIAN
--- OUTSIDE RECORDS SUMMARY | 2025-09-22 11:46 | XMS_ITS | Patient Health Record ---
Author Organization [facility] Address [address] [place] [address] Care Team Providers Care Superintendent [employer] Name Role Phone Bailey Hodge Unavailable [phone] Reason For Referral No Information Medications Medication [...] Coverage End Date [employer] [employer] [address] [place] [address] [id number] CHARISSA ORTIZ Self - patient is the insured [place] Medicaid [address] [address] [place] [address] [id number] CHARISSA ORTIZ Self - patient is the insured
--- OUTSIDE RECORDS SUMMARY | 2025-09-22 11:46 | XMS_ITS | Clinical Summary ---
Author Organization [facility] Address [address] [place] [address] Care Team Providers Care Foot Drill Operator Name Role Phone Cony Blake APRN-FILM WASHER Primary Care Provi cam Source Comments [facility],non-owned Affiliates and Associated Physician Practices is amultiple site organization consisting of ambulatory clinics and hospital sitesin [place], [place], [place] and [place]. This disclosure is being madepursuant to the Care Everywhere program and may not contain all information available regarding this patient. Last updated 18.[facility] Allergies Active Allergy Reactions Criticality Noted Date Comments Hydrocodone-Acetaminophen Itching Low 02/14/2016 Hydrocodone-Acetaminophen Itching Low 02/14/2016 Medications * This document contains information received from the source organization and may not represent a complete record from that organization. * Be aware that medications may not be up to date on this document. Alwaysverify current medications with the patient. cyclobenzaprin e (Flexeril) 5 MG tabletIndicati ons:Muscle Spasm Take 1 (one) tablet by mouth 3 times daily as needed Reasons: Muscle Spasm Active ARIPiprazole (Abilify) 5 MG tabletIndicati ons:Major Depressive Disorder Take 1 (one) tablet by mouth once daily for 15 days Reasons: Major Depressive Disorder 15 tablet 1 09/11/20 24 Active amLODIPine (Norvasc) 2.5 MG tabletIndicati ons:Hypertensi on Take 1 (one) tablet by mouth once daily Reasons: High Blood Pressure 30 tablet 09/20/20 25 Active losartan (Cozaar) 50 MG tabletIndicati ons:Hypertensi on Take 1 (one) tablet by mouth once daily Reasons: High Blood Pressure 30 tablet 09/20/20 25 Active lisinopril (Prinivil; Zestril) 10 MG tabletIndicati ons:Hypertensi on Take 1 (one) tablet by mouth once daily Reasons: High Blood Pressure 025 Discontinued([facility]/AVS) amLODIPine (Norvasc) 2.5 MG tabletIndicati ons:Hypertensi on Take 1 (one) tablet by mouth once daily Reasons: High Blood Pressure 025 Discontinued losartan (Cozaar) 25 MG tabletIndicati ons:Hypertensi on Take 1 (one) tablet by mouth once daily 025 Discontinued hydrOXYzine HCl (Atarax) 50 MG tabletIndicati ons:Anxiety Take 1 (one) tablet by mouth 2 times daily as needed Reasons: Feeling Anxious 30 tablet 1 09/10/20 24 025 Discontinued([facility]/AVS) Active Problems Problem Noted Date Diagnosed Date Epistaxis 09/19/2025 Sinus tachycardia 09/19/2025 Hypertensive urgency 09/19/2025 Severe major depression without psychotic featur es 09/08/2024 Attention deficit disorder (ADD) in adult 2023 Post traumatic stress disorder (PTSD) 09/08/2024 Alcohol use disorder 09/08/2024 Other specified postprocedural states 03/07/2016 Personal history of other diseases of the digest sherri system 03/07/2016 Hemorrhage of anus and rectum 02/14/2016 Encounters Date Type Department Care Team Description 09/19/2025 10:43 AM GAS DESULFURIZER - 09/20/2025 1:35 PM [facility] Hospital Encounter [facility] [address] [place] [id number] Yolanda Zelaya MD Sallis, Milton, MD Muthyala, Usha R, MD Hall, Cary, MD Kumar, Hanesh, MD Hospitalist Discharge Disposition: Home or Self Care 09/19/2025 Travel from Last 3 Months Social History Tobacco Use Types Packs/Day Years Used Date Smoking Tobacco: Every Day Cigarettes 1 22.8 Started: 2002 Tobacco Cessation:Ready to Q uit: No; Counseling Given: Yes Alcohol Use Standard Drinks/Week Comments Yes 1 (1 standard drink = 0.6 oz pur e alcohol) Overall Financial Resource Strain (CARDIA) Answe r Date Recorded How hard is it for you to pa y for the very basics like food, housing, medical care, and heating? Not very hard 09/08/2024 [facility] Occupat ional Health - Occupational Stress Questionnaire Answer Date Recorded Do you feel stress - tense, restless, nervous, or anxious, or unable to sleep at night because your mind is troubled all the time - these days? To some extent 09/08/2024 PRAPARE - Transportation Answer Date Re [...] any time in the past 12 m [facility], were you homeless or living in a longterm (including now)? No 09/08/2024 AUDIT-C Answer Date Recorded Q1: How often do you have a drink containing alc ohol? 2-4 times a month 09/19/2025 Q2: How many drinks containi ng alcohol do you have on a typical day when you are drinking? 1 or 2 09/19/2025 Q3: How often do you have si x or more drinks on one occasion? Less than monthly 09/19/2025 Hunger Vital Sign Answer Date Recorded Within the past 12 months, y ou worried that your food would run out before you got the money to buy more. Never true 09/20/20 25 Within the past 12 months, t he food you bought just didn't last and you didn't have money to get more. Never true 09/20/2025 Sex and Gender Information Value Date Recorded Sex Assigned at Not on file Legal Sex Male 5:50 PM GAS DESULFURIZER Gender Identity Not on file Sexual Orientation Not on file Last Filed Vital Signs Vital Sign Reading Time Taken Comments Blood Pressure 119/90 09/20/2025 11:18 AM GAS DESULFURIZER Pulse 81 09/20/2025 11:18 AM GAS DESULFURIZER Temperature 36.6 C (97.9 F) 09/20/2025 11:18 AM GAS DESULFURIZER Respiratory Rate 18 09/20/2025 11:18 AM GAS DESULFURIZER Oxygen Saturation 99% 09/20/2025 11:18 AM GAS DESULFURIZER Inhaled Oxygen Concentration - - Weight 90.7 kg (200 lb) 09/19/2025 10:47 AM GAS DESULFURIZER Height 177.8 cm (5' 10) 09/19/2025 10:47 AM GAS DESULFURIZER Body Mass Index 28.7 09/19/2025 10:47 AM GAS DESULFURIZER Plan of Treatment Upcoming Encounters Date Type Department Care Team (Late st Contact Info) Description 10/06/2025 8:20 AM GAS DESULFURIZER Documentation [address] [phone] 10/06/2025 8:40 AM GAS DESULFURIZER Office Visit [facility] Cancer [address] [phone] [place] [id number] [phone] Health Maintenance Due Date Last Done Comments HIV SCREENING 2000 HEPATITIS C SCREENING 06/14/2003 DTAP/TDAP/TD VACCINES (1 - Tdap) 2004 HEPATITIS B VACCINE (1 of 3 - 19+ 3-dose series) 2004 PNEUMOCOCCAL VACCINE (1 of 2 - PCV) 2004 HPV VACCINE (1 - 3-dose SCDM series) 2012 DEPRESSION SCREENING 11/17/2024 COVID-19 VACCINE (3 - 2024-2 6 season) 2025 06/28/2021, 05/08/2021 INFLUENZA VACCINE (#1) 2025 , 02/12/2016 LIPID TESTING 09/09/2029 09/09/2024 ZOSTER VACCINE (1 of 2) 2035 HIB VACCINE Aged Out No longer eligi ble based on patient's age to complete this topic MENINGOCOCCAL (Group B) VACCINE SHARED DECISION-MAKING Aged Out No longer eligible based on patient's age to complete this topic MENINGOCOCCAL GROUPS A/C/Y/W VACCINE Aged Out No longer eligible b ased on patient's age to complete this topic Procedures Procedure Name Priority Date/Time Associated Diagnosis Comments ERYTHROPOIETIN Routine 09/20/2025 10:35 AM GAS DESULFURIZER Erythrocytosis CARBON MONOXIDE Routine 09/20/2025 8:28 AM GAS DESULFURIZER Erythrocytosis CBC W/O DIFFERENTIAL Routine 09/20/2025 4:01 AM GAS DESULFURIZER Hypertensive urgency Epistaxis BASIC METABOLIC PANEL (CALCIUM TOTAL) Routine 09/20/2025 4:01 AM GAS DESULFURIZER Sinus tachycardia Hypertensive urgency Epistaxis TROPONIN-I HIGH SENSITIVE REFLEX 1HOUR Timed 09/19/2025 1:12 PM GAS DESULFURIZER EKG 12-LEAD STAT 09/19/2025 1:04 PM GAS DESULFURIZER Sinus tachycardia URINALYSIS REFLEX MICROSCOPIC REFLEX CULTURE STAT 09/19/2025 11:04 AM GAS DESULFURIZER ALCOHOL ETHYL BLOOD Add on 09/19/2025 1 1:00 AM GAS DESULFURIZER NT-PRO BNP Add on 09/19/2025 11:00 AM GAS DESULFURIZER TROPONIN-I HIGH SENSITIVE BASELINE + 1HR Add on 09/19/2025 11:00 AM GAS DESULFURIZER COMPREHENSIVE METABOLIC PANEL STAT 09/19/2025 11:00 AM GAS DESULFURIZER CBC W AUTO DIFFERENTIAL STAT 09/19/2025 11:00 AM GAS DESULFURIZER LIPID PROFILE Routine 09/09/2024 6:13 AM CDT from Last 3 Months or Most Recently Relevant to Health Maintenance Results * ERYTHROPOIETIN (09/20/2025 10:35 AM GAS DESULFURIZER) Erythropoietin 11.7 2.6 - 18.5 mIU/mL 09/21/2025 5:10 PM GAS DESULFURIZER [facility] ([facility]) Comment: [employer] DxI 800 Immunoassay System Values obtained with different assay methods or kits cannot be used interchangeably. Results cannot be interpreted as absolute evidence of the presence or absence of malignant disease. Blood BLOOD SPECIMEN / Unknown Venipuncture / Unknown 09/20/2025 10:35 AM GAS DESULFURIZER 09/20/2025 10:42 AM GAS DESULFURIZER Narrative [facility] ([facility]) - 09/21/2025 5:10 PM GAS DESULFURIZER Performed at: Lab[address] [id number] Starch Mangle Tender: Mikael Whaley PhD, Phone: [phone] Mani Goode MD LAB - CHEMISTRY ORDERABLES Shante l Result Performing Organization Address City/[facility]/ZIP Co de Phone Number [facility] [address] [place] [address] * (ABNORMAL) CARBON MONOXIDE (09/20/2025 8:28 AM GAS DESULFURIZER) [facility] Carboxyhemoglobin 3.5(H) 0.0 - 2.0 % 09/20/2025 10:41 AM GAS DESULFURIZER [facility] RESP THERAPY Perry's Test NA 09/20/2025 10:41 AM GAS DESULFURIZER [facility] RESP THERAPY Sample Site Other 09/20/2025 10:41 AM GAS DESULFURIZER [facility] RESP THERAPY Blood BLOOD SPECIMEN / Unknown 09/20/2025 8:28 AM GAS DESULFURIZER 09/20/2025 8:28 AM GAS DESULFURIZER Mani Goode MD LAB - BLOOD GASES ORDERABLES Fi nal Result Performing Organization Address City/[facility]/ZIP Co de Phone Number [facility] RESP THERAPY [address] [place] [address] * (ABNORMAL) CBC W/O DIFFERENTIAL (09/20/2025 4:01 AM GAS DESULFURIZER) [facility] WBC 11.3(H) 4.0 - 10.7 x10E9/L 09/20/2025 4:17 AM GAS DESULFURIZER [facility] RBC Count 5.07 4.30 - 5.80 x10E12/L 09/20/2025 4:17 AM [facility] Hemoglobin 15.6 13.3 - 17.5 g/dL 09/20/2025 4:17 AM [facility] Hematocrit 46.3 38.7 - 51.1 % 09/20/2025 4:17 AM [facility] MCV 91.3 80.0 - 98.0 fL 09/20/2025 4:17 AM [facility] MCH 30.8 26.7 - 33.6 pg 09/20/2025 4:17 AM [facility] MCHC 33.7 31.7 - 36.3 g/dL 09/20/2025 4:17 AM [facility] RDW-CV 13.0 11.3 - 14.8 % 09/20/2025 4:17 AM [facility] Platelet Count 243 150 - 420 x10E9/L 09/20/2025 4:17 AM [facility] MPV 10.3 7.8 - 11.4 fL 09/20/2025 4:17 AM [facility] Blood BLOOD SPECIMEN / Unknown Venipuncture / Unknown 09/20/2025 4:01 AM GAS DESULFURIZER 09/20/2025 4:07 AM [facility] Suzy Martinez MD LAB - HEMATOLOGY ORDERABLES Shante l Result [facility] [address] [place] [id number] * (ABNORMAL) BASIC METABOLIC PANEL (CALCIUM TOTAL) (09/20/2025 4:01 AM [facility]) Glucose 102(H) 70 - 99 mg/dL 09/20/2025 4:30 AM [facility] Sodium 136 136 - 145 mmol/L 09/20/2025 4:30 AM [facility] Potassium 4.3 3.5 - 5.1 mmol/L 09/20/2025 4:30 AM [facility] Chloride 108(H) 98 - 107 mmol/L 09/20/2025 4:30 AM [facility] CO2 23 22 - 29 mmol/L 09/20/2025 4:30 AM [facility] Calcium 8.7 8.4 - 10.4 mg/dL 09/20/2025 4:30 AM [facility] Anion Gap 5(L) 6 - 16 mmol/L 09/20/2025 4:30 AM [facility] BUN 20(H) 5.3 - 18.7 mg/dL 09/20/2025 4:30 AM [facility] Creatinine 1.46(H) 0.60 - 1.20 mg/dL 09/20/2025 4:30 AM [facility] eGFR by CKD-EPI 62(L) >=90 mL/min/1.7 3 m2 09/20/2025 4:30 AM [facility] Comment:Estimated Glomerular Filtration Rate (eGFR) calculated using the CKD-EPI Creatinine Equation (2020), per the National Kidney Foundation and [place] [employer] of Neph[employer] recommendations. Blood BLOOD SPECIMEN / Unknown Venipuncture / Unknown 09/20/2025 4:01 AM GAS DESULFURIZER 09/20/2025 4:07 AM GAS DESULFURIZER Suzy Martinez MD LAB - CHEMISTRY ORDERABLES Final Result Performing Organization Address City/[facility]/ZIP Co de Phone Number [facility] [address] [place] [phone] * TROPONIN-I HIGH SENSITIVE REFLEX 1HOUR (09/19/2025 1:12 PM GAS DESULFURIZER) Troponin I High Sensitive 11 <=35 ng/L 09/19/2025 1:37 PM GAS DESULFURIZER [facility] Delta Troponin I HS 09/19/2025 1:37 PM GAS DESULFURIZER [facility] Comment:Delta value intentio miky not calculated. Baseline to 1 hour specimen collection interval exceeded. Blood BLOOD SPECIMEN / Unknown Venipuncture / Unknown 09/19/2025 1:12 PM GAS DESULFURIZER 09/19/2025 1:14 PM GAS DESULFURIZER Murray Richard MD LAB - CHEMISTRY ORDERABLES Shante l Result Performing Organization Address City/[facility]/ZIP Co de Phone Number [facility] [address] [place] [address] * EKG 12-Lead (09/19/2025 1:04 PM GAS DESULFURIZER) Ventricular Rate 113 BPM [facility] Atrial Rate 113 BPM [facility] P-R Interval 148 ms [facility] QRS Duration ms 76 ms [facility] Q-T Interval ms 342 ms [facility] QTC Calculation (Bezet) 469 ms [facility] Calculated P [place] 67 degrees [facility] Calculated R [place] -19 degrees [facility] Calculated T [place] 75 degrees [facility] Interpretation EKG Sinus tachycardia Possible Inferior infarct , age undetermined Abnormal ECG No previous ECGs available Confirmed by LIANNA ROSE MD ([id number]) on 09/19/2025 6:28:09 PM [facility] 09/19/2025 1:04 PM GAS DESULFURIZER 09/19/2025 6:28 PM [facility] Murray Richard MD ECG ORDERABLES Edited Result - Final [facility] * (ABNORMAL) URINALYSIS REFLEX MICROSCOPIC REFLEX CULTURE (09/19/2025 11:04 AM GAS DESULFURIZER) Color UA Yellow Yellow, Straw 09/19/2025 11:26 AM [facility] Clarity UA Clear Clear 09/19/2025 11:26 AM [facility] Glucose UA Normal Normal 09/19/2025 11:26 AM [facility] Bilirubin UA Negative Negative 09/19/2025 11:26 AM [facility] Ketone UA Negative Negative 09/19/2025 11:26 AM [facility] Specific [place] UA 1.026 1.005 - 1.030 09/19/2025 11:26 AM [facility] Blood UA 3+(A) Negative 09/19/2025 11:26 AM [facility] pH UA 6.0 5.0 - 8.0 09/19/2025 11:26 AM [facility] Protein UA 2+(A) Negative 09/19/2025 11:26 AM [facility] Urobilinogen UA Normal Normal mg/dL 09/19/2025 11:26 AM [facility] Nitrite UA Negative Negative 09/19/2025 11:26 AM GAS DESULFURIZER [facility] Leukocyte Esterase UA Negative Negative 09/19/2025 11:26 AM GAS DESULFURIZER [facility] RBC UA 11-20(A) 0 - 5 # /hpf 09/19/2025 11:26 AM GAS DESULFURIZER [facility] WBC UA 0-5 0 - 5 # /hpf 09/19/2025 11:26 AM GAS DESULFURIZER [facility] Bacteria UA None Seen None Seen 09/19/2025 11:26 AM GAS DESULFURIZER [facility] Squamous Epithelial Cells 0-2 0 - 5 /hpf 09/19/2025 11:26 AM GAS DESULFURIZER [facility] Mucus UA 3+ /LPF 09/19/2025 11:26 AM GAS DESULFURIZER [facility] Hyaline Casts 0-2 0 - 2 /LPF 09/19/2025 11:26 AM [facility] Reflex Status Culture not indicated 09/19/2025 11:26 AM [facility] Urine URINE SPECIMEN OBTAINED BY CLEAN CATCH PROCEDURE / Unknown Collection / Unknown 09/19/2025 11:04 AM GAS DESULFURIZER 09/19/2025 11:08 AM GAS DESULFURIZER Murray Richard MD LAB - URINALYSIS ORDERABLES Fin al Result [facility] [address] [place] [address] * NT-PRO BNP (09/19/2025 11:00 AM GAS DESULFURIZER) NT-proBNP 253.7 <450.0 pg/mL 09/19/2025 1:21 PM [facility] Blood BLOOD SPECIMEN / Unknown Venipuncture / Unknown 09/19/2025 11:00 AM GAS DESULFURIZER 09/19/2025 11:07 AM GAS DESULFURIZER Narrative [facility] - 09/19/2025 1:21 PM GAS DESULFURIZER NT-pro-BNP values below 300 pg/mL, for individuals 18 or above, have a 99% negative predictive value for excluding acute congestive heart failure (CHF). In patients with eGFR less than 60 mL/min/1.73 m2, caution should be used when interpreting NT-pro-BNP results. Results should be assessed in conjunction with the patient s medical history, clinical examination, and other findings. NT-pro-BNP is measured on the [employer]ame Alinity analyzer using chemiluminescent microparticle immunoassay (CMIA) technology. us Murray Richard MD LAB - CHEMISTRY ORDERABLES Shante l Result Performing Organization Address City/[facility] Co de Phone Number [facility] [id number] [place] [address] * TROPONIN-I HIGH SENSITIVE BASELINE + 1HR (09/19/2025 11:00 AM GAS DESULFURIZER) [facility] Troponin I High Sensitive 12 <=35 ng/L 09/19/2025 1:21 PM GAS DESULFURIZER [facility] Blood BLOOD SPECIMEN / Unknown Venipuncture / Unknown 09/19/2025 11:00 AM GAS DESULFURIZER 09/19/2025 11:07 AM GAS DESULFURIZER us Murray Richard MD LAB - CHEMISTRY ORDERABLES Shante l Result Performing Organization Address [facility] de Phone Number [facility] [id number] [place] [phone] * (ABNORMAL) CBC W AUTO DIFFERENTIAL (09/19/2025 11:00 AM GAS DESULFURIZER) [facility] WBC 11.2(H) 4.0 - 10.7 x10E9/L 09/19/2025 11:26 AM GAS DESULFURIZER [facility] RBC Count 6.33(H) 4.30 - 5.80 x10E12/L 09/19/2025 11:26 AM GAS DESULFURIZER [facility] Hemoglobin 19.7(H) 13.3 - 17.5 g/dL 09/19/2025 11:26 AM GAS DESULFURIZER [facility] Hematocrit 58.2(H) 38.7 - 51.1 % 09/19/2025 11:26 AM GAS DESULFURIZER [facility] MCV 91.9 80.0 - 98.0 fL 09/19/2025 11:26 AM GAS DESULFURIZER [facility] MCH 31.1 26.7 - 33.6 pg 09/19/2025 11:26 AM GAS DESULFURIZER [facility] MCHC 33.8 31.7 - 36.3 g/dL 09/19/2025 11:26 AM GAS DESULFURIZER [facility] RDW-CV 12.9 11.3 - 14.8 % 09/19/2025 11:26 AM [facility] Platelet Count 288 150 - 420 x10E9/L 09/19/2025 11:26 AM [facility] MPV 10.4 7.8 - 11.4 fL 09/19/2025 11:26 AM [facility] Neutrophil % 67.9 41.0 - 74.0 % 09/19/2025 11:26 AM [facility] Lymphocyte % 22.2 17.0 - 47.0 % 09/19/2025 11:26 AM [facility] Monocyte % 6.7 3.0 - 11.0 % 09/19/2025 11:26 AM [facility] Eosinophil % 0.8 0.0 - 7.0 % 09/19/2025 11:26 AM [facility] Basophil % 1.1 0.0 - 1.6 % 09/19/2025 11:26 AM [facility] Immature Granulocytes % 1.3(H) 0.0 - 1.0 % 09/19/2025 11:26 AM [facility] Neutrophil Absolute 7.63(H) 1.60 - 7.50 x10E9/L 09/19/2025 11:26 AM [facility] Lymphocyte Absolute 2.49 1.00 - 4.40 x10E9/L 09/19/2025 11:26 AM [facility] Monocyte Absolute 0.75 0.15 - 1.00 x10E9/L 09/19/2025 11:26 AM [facility] Eosinophil Absolute 0.09 0.00 - 0.60 x10E9/L 09/19/2025 11:26 AM [facility] Basophil Absolute 0.12 0.00 - 0.13 x10E9/L 09/19/2025 11:26 AM [facility] Blood BLOOD SPECIMEN / Unknown Venipuncture / Unknown 09/19/2025 11:00 AM GAS DESULFURIZER 09/19/2025 11:07 AM GAS DESULFURIZER us Yolanda Zelaya MD LAB - HEMATOLOGY ORDERABLES Fi nal Result [facility] [address] [place] [address] * (ABNORMAL) COMPREHENSIVE METABOLIC PANEL (09/19/2025 11:00 AM [facility]) [facility] Signature Glucose 94 70 - 99 mg/dL 09/19/2025 11:24 AM [facility] Sodium 141 136 - 145 mmol/L 09/19/2025 11:24 AM [facility] Potassium 4.3 3.5 - 5.1 mmol/L 09/19/2025 11:24 AM [facility] Chloride 106 98 - 107 mmol/L 09/19/2025 11:24 AM [facility] CO2 25 22 - 29 mmol/L 09/19/2025 11:24 AM [facility] Calcium 9.8 8.4 - 10.4 mg/dL 09/19/2025 11:24 AM [facility] Anion Gap 10 6 - 16 mmol/L 09/19/2025 11:24 AM [facility] BUN 20(H) 5.3 - 18.7 mg/dL 09/19/2025 11:24 AM [facility] Creatinine 1.65(H) 0.60 - 1.20 mg/dL 09/19/2025 11:24 AM [facility] Alkaline Phosphatase 67 40 - 150 U/L 09/19/2025 11:24 AM [facility] ALT 36 6 - 57 U/L 09/19/2025 11:24 AM [facility] AST 30 10 - 48 U/L 09/19/2025 11:24 AM [facility] Protein Total 7.9 6.4 - 8.3 gm/dL 09/19/2025 11:24 AM [facility] Albumin 4.2 3.1 - 4.5 gm/dL 09/19/2025 11:24 AM [facility] Bilirubin Total 0.5 0.2 - 1.2 mg/dL 09/19/2025 11:24 AM [facility] eGFR by CKD-EPI 54(L) >=90 mL/min/1.7 3 m2 09/19/2025 11:24 AM [facility] Comment:Estimated Glomerular Filtration Rate (eGFR) calculated using the CKD-EPI Creatinine Equation (2020), per the National Kidney Foundation and [place] [employer] Neph[employer] recommendations. Blood BLOOD SPECIMEN / Unknown Venipuncture / Unknown 09/19/2025 11:00 AM GAS DESULFURIZER 09/19/2025 11:07 AM GAS DESULFURIZER Murray Richard MD LAB - CHEMISTRY ORDERABLES Shante almonte Result Performing Organization Address [facility] Co de Phone Number [facility] [id number] [place] [address] * ALCOHOL ETHYL BLOOD (09/19/2025 11:00 AM GAS DESULFURIZER) Ethanol <10.0 <10 mg/dL 09/19/2025 1:55 PM GAS DESULFURIZER [facility] Ethanol Calculated <0.010 <=0.100 gm/dL 09/19/2025 1:55 PM GAS DESULFURIZER [facility] Blood BLOOD SPECIMEN / Unknown Venipuncture / Unknown 09/19/2025 11:00 AM GAS DESULFURIZER 09/19/2025 11:07 AM GAS DESULFURIZER Narrative [facility] - 09/19/2025 1:55 PM GAS DESULFURIZER Ethanol Interp <10: None Detected Depression of CSN: >100 mg/dL Potentially Critical: >250 mg/dL Potentially Fatal >400 mg/dL Ethanol in the patient's blood will contribute to the osmolar gap. Ethanol's contribution to the osmolar gap can be estimated by dividing the concentration of ethanol in mg/dL by 4.6. This test is for clinical use only and does not equal a MANJIT for legal purposes. Murray Richard MD LAB - CHEMISTRY ORDERABLES Shante almonte Result Performing Organization Address [facility] Co de Phone Number [facility] [id number] [place] [address] * (ABNORMAL) LIPID PROFILE (09/09/2024 6:13 AM CDT) Cholesterol 186 <200 mg/dL 09/09/2024 6:44 AM CDT [facility] Triglycerides 155(H) <150 mg/dL 09/09/2024 6:44 AM CDT [facility] HDL Cholesterol 53 >40 mg/dL 6:44 AM CDT [facility] Chol HDL Ratio 3.5 1.0 - 6.0 09/09/2024 6:44 AM CDT [facility] LDL Calculated 102 65 - 130 mg/dL 09/09/2024 6:44 AM CDT [facility] VLDL Calculated 31(H) <=30 mg/dL 6:44 AM T [facility] Blood BLOOD SPECIMEN / Unknown Lab Venipuncture / Unknown 09/09/2024 6:13 AM CDT 09/09/2024 6:17 AM CDT Narrative [facility] - 09/09/2024 6:44 AM CDT Lipid [...] 9.5 ...................... 7.0 3X AVERAGE...................>23........................>11 Yesi Conteh PATIENT CARE MANAGER-FILM WASHER LAB - CHEMISTRY ORDERAB LES Final Result [facility] [address] [place] [address], [facility] from Last 3 Months or Most Recently Relevant to Health Maintenance Insurance MEDICAID - [place] [facility] Advance Directives * Full Code (Latest Code Status on File) Date Activated Date Inactivated Comments 09/19/2025 2:20 PM 09/20/2025 2:51 PM * Full Code Date Activated Date Inactivated Comments 09/08/2024 8:38 AM 09/11/2024 11:23 AM Care Teams Foot Drill Operator Relationship Specialty Start Date End Date Cony Blake, PATIENT CARE MANAGER-FILM WASHER [address] [place] [address] PCP - General Nurse Practitioner 09/08/24
--- OUTSIDE RECORDS SUMMARY | 2025-09-22 11:46 | XMS_ITS | Patient Health Record ---
Author Organization [facility] hospital Address [address] [place] [address] Care Team Providers Care Razor Grinder Name Role Phone Venus Meade Primary Care Provider Albina Tavarez Unavailable [phone] Allergies No Known Allergies Reason For Referral No Information Medications Medication SIG (Take, Route, Frequency, Duration) Notes Start Date End Date Status traZODone HCl 50 MG 1 tablet at bedtime as needed Orally Once a day; Duration: 30 days Active Amphetamine-Dextroampheta mine 10 MG 1 tablet Orally Once a day; Duration: 13 days 09/16/2025 Active ARIPiprazole 2 MG 1 tablet Orally Once a day; Duration: 13 days Active Vyvanse 50 MG 1 capsule in the morning Orally Once a day; Duration: 13 days 09/16/2025 Active Vyvanse 60 MG 1 capsule in [...] Status Risk Notes Problem Generalized anxiety disorder (16398911) Generalized anxiety disorder (F41.1) Active confirmed Problem Major depression (017197866) Major depression (F32.9) Active confirmed Problem Posttraumatic stress disorder (83359870) PTSD (post-traumatic stress disorder) (F43.10) Active confirmed Problem Anxiety (43669885) Anxiety (F41.9) Active confirmed Problem Attention deficit hyperactivity disorder (546968046) ADHD (attention deficit hyperactivity disorder) (F90.9) Active confirmed Vital Signs Heart Rate 81 /min 02/08/2025 Temperature 98.0 degrees Fahrenheit 02/08/2025 Respiratory Rate 16 /min 02/08/2025 Blood pressure diastolic 84 mm Hg 03/08/2025 Oximetry 99 % 02/08/2025 Height 72 in 02/08/2025 Blood pressure systolic 138 mm Hg 03/08/2025 Weight 202.7 lbs 02/08/2025 BMI 27.49 kg/m2 02/08/2025 Encounters Encounter Location Date Provider Diagnosis [facility] [address] [place] [address] 10/05/2024 Venus Meade Generalized anxiety disorder F41.1 ; Major depression F32.9 and ADHD (attention deficit hyperactivity disorder) F90.[address] [place] [address] 11/24/2024 Venus Meade Generalized anxiety disorder F41.1 ; Major depression F32.9 and ADHD (attention deficit hyperactivity disorder) F90.9 [facility] [address] [place] [address] 12/28/2024 Venus Meade Generalized anxiety disorder F41.1 ; Major depression F32.9 and ADHD (attention deficit hyperactivity disorder) F90.9 [facility] [address] [place] [address] 02/08/2025 Venus Meade Generalized anxiety disorder F41.1 ; Major depression F32.9 and ADHD (attention deficit hyperactivity disorder) F90.9 [facility] [address] [place] [address] 03/08/2025 Venus Meade Generalized anxiety disorder F41.1 ; Major depression F32.9 and ADHD (attention deficit hyperactivity disorder) F90.[address] [place] [address] 04/07/2025 Venus Meade Generalized anxiety disorder F41.1 ; Major depression F32.9 and ADHD (attention deficit hyperactivity disorder) F90.[address] [address] 06/22/2025 Venus Meade Generalized anxiety disorder F41.1 ; Major depression F32.9 and ADHD (attention deficit hyperactivity disorder) F90.9 [facility] [address] [place] [address] 09/30/2024 Venus Meade [address] [address] 11/11/2024 Albina Tavarez Major depression F32.9 and ADHD (attention deficit hyperactivity disorder) F90.[address] [address] 12/27/[address] [address] 02/01/2025 Venus Meade ADHD (attention deficit hyperactivity disorder) F90.[address] [address] 03/01/2025 [place] [address] [place] [address] 03/30/2025 Venus Meade ADHD (attention deficit hyperactivity disorder) F90.9 and Major depression F32.9 [facility] [address] [place] [address] 04/28/2025 Venus Meade [address] [address] 05/10/2025 Venus Meade ADHD (attention deficit hyperactivity disorder) F90.9 [facility] [address] [place] [address] 05/31/2025 Venus Meade ADHD (attention deficit hyperactivity disorder) F90.9 [facility] [address] [place] [address] 06/09/2025 Venusabraham Meade ADHD (attention deficit hyperactivity disorder) F90.9 and Major depression F32.[address] [address] 08/15/2025 Venus Meade ADHD (attention deficit hyperactivity disorder) F90.[address] [address] 08/29/2025 Venus Meade [address] [address] 09/15/2025 Venus Meade Major depression F32.9 and ADHD (attention deficit hyperactivity disorder) F90.[address] [address] 02/10/2025 Venus Meade [address] [address] 02/23/2025 Venus Meade [address] [address] 02/28/2025 Venus Meade ADHD (attention deficit hyperactivity disorder) F90.9 and Major depression F32.9 Assessments Encounter Date Diagnosis (ICD Code) Assessment Notes Treatment Notes Treatment Clinical Notes Section Notes 10/05/2024 Generalized anxiety disorder (ICD-10 - F41.1) [...] (attention deficit hyperactivity disorder) (ICD-10 - F90.9) 08/15/2025 ADHD (attention deficit hyperactivity disorder) (ICD-10 - F90.9) 09/15/2025 Major depression (ICD-10 - F32.9) 09/15/2025 ADHD (attention deficit hyperactivity disorder) (ICD-10 - [...] temporary or permanent movement disorders, and akathisia. 10/05/2024 ADHD (attention deficit hyperactivity disorder) (ICD-10 [...] and monitor B/P, stability noted. Client v/u. 10/05/2024 Other will fill out FMLA paperwork, recommending intermittent leave with leniency. Reasons, [...] May also contact the 24-hour crisis hotline ([facility]), refer to the closest emergency [...] May also contact the 24-hour crisis hotline ([facility]), refer to the closest emergency [...] May also contact the 24-hour crisis hotline ([facility]), refer to the closest emergency [...] May also contact the 24-hour crisis hotline ([facility]), refer to the closest emergency [...] May also contact the 24-hour crisis hotline ([facility]), refer to the closest emergency [...] May also contact the 24-hour crisis hotline ([facility]), refer to the closest emergency [...] May also contact the 24-hour crisis hotline ([facility]), refer to the closest emergency [...] AIMS, or vital signs. Plan Of Treatment Next Appt Details Provider Name:Venus portillo, 09/28/2025 03:00:00 PM, [address] [facility] , [place], [address], Insurance Providers Payer Name Payer Address Payer Phone Subscriber Number Group Number Insured Name Patient Relationship to Insured Coverage Start Date Coverage End Date MEDICAID [address] [place] [address] [id number] Felipe Stanton Self - patient is the insured 2 2 [facility] [address] [place] [address] [id number] eFlipe Stanton Self - patient is the insured 2 MEDICAID [address] [place] [address] [id number] Felipe Stanton Self - patient is the insured 2 [facility] Plan [address] [place] [address] [id number] Felipe Stanton Self - patient is the insured 2 2 [facility] [address] [place] [address] [id number] Felipe Stanton Self - patient is the insured 2 2 [employer] [address] [place] [address] [id number] Felipe Stanton Self - patient is the insured 2 2 [facility] [employer] [facility] [address] [place] [address] [id number] Felipe Stanton Self - patient is the insured 2 2 [facility] [employer] [facility] [address] [place] [address] [id number] Felipe Stanton Self - patient is the insured 2 2 Medical (General) History Medical History History ICD Code ANXIETY Surgical History Surgery Date(Month/Year) Internal Hemorrhoids 2016 Tympanic Membrane Wrist Hospitalization History Reason Date(Month/Year) [facility] C. diff 2020 Pneumothorax 2016 Panic attack 2014
--- OUTSIDE RECORDS SUMMARY | 2025-09-22 11:46 | XMS_ITS | Clinical Summary ---
Author Organization [facility] Health Address [address] [address] Care Team Providers Care Chiropractor Assistant Name Role Phone Unavailable Primary Care Provider [...] 90.7 kg (200 lb) 11/25/2024 1:52 PM ORNAMENTAL METAL WORKER HELPER Height 177.8 cm (5' 10) 11/25/2024 1:52 PM ORNAMENTAL METAL WORKER HELPER Body Mass Index 28.7 11/25/2024 1:52 PM ORNAMENTAL METAL WORKER HELPER Plan of Treatment Health Maintenance Due Date [...] TEETH PER QUADRANT Routine 12/24/2024 8:00 AM ORNAMENTAL METAL WORKER HELPER ADJUNCTIVE PRE-DIAGNOSTIC TEST THAT AIDS IN DETECTION OF MUCOSAL ABNORMALITIES Routine 12/24/2024 8:00 AM ORNAMENTAL METAL WORKER HELPER [facility] [facility] CT CAPTURE AND INTERPRETATION WITH FIELD OF VIEW OF BOTH JAWS; WITH OR WITHOUT CRANIUM Routine 10/07/2024 8:00 AM ORNAMENTAL METAL WORKER HELPER COMPREHENSIVE ORAL EVALUATION - NEW OR ESTABLISHED PATIENT Routine 10/07/2024 8:00 AM ORNAMENTAL METAL WORKER HELPER Encounter for dental examination and cleaning without abnormal findings from Last 3 Months or Most Recently Relevant to Health Maintenance Insurance [facility]CIAL
--- OUTSIDE RECORDS SUMMARY | 2025-09-22 11:46 | XMS_ITS | Encounter Summary ---
Author Organization [facility] Health Address [address] [place] [address] Care Team Providers Care Community Health Navigator Name Role Phone Unavailable Primary Care Provider Unavailabl e Prior Encounters Date Type Department Care Team Description 03/31/2025 8:00 AM CDT Office Visit [facility] [address] [place] [address] Mumtaz Yusuf [facility] 02/17/2025 Travel 02/17/2025 8:00 AM CDT Office Visit [facility] [address] [place] [address] Salma Perales, ERIBERTO Dental caries, unspecified (Primary Dx) 01/20/2025 Travel 01/20/2025 8:00 AM STORES DESPATCH HAND Office Visit [facility] [address] [place] [address] Salma Perales, ERIBERTO Dental caries, unspecified (Primary Dx) 01/06/2025 Travel 12/24/2024 Travel 12/24/2024 8:00 AM STORES DESPATCH HAND Office Visit [facility] [address] [place] [address] Mumtaz Yusuf [facility] 12/23/2024 Travel 12/23/2024 8:00 AM STORES DESPATCH HAND Office Visit [facility] [address] [place] [address] Salma Perales DDS 12/14/2024 Travel 12/14/2024 8:00 AM STORES DESPATCH HAND Office Visit [facility] [address] [place] [address] Gideon Gutierrez, DDS 12/08/2024 8:00 AM STORES DESPATCH HAND Office Visit [facility] [address] [place] [address] Salma Perales DDS Dental caries, unspecified (Primary Dx) 11/25/2024 Travel 11/25/2024 12:45 PM STORES DESPATCH HAND Office Visit [facility] [address] [place] [address] Fátima Lees, DDS 11/16/2024 8:00 AM STORES DESPATCH HAND Office Visit [facility] [address] [place] [address] Salma Perales, ANASTACIAS 11/02/2024 Travel 11/02/2024 8:00 AM STORES DESPATCH HAND Office Visit [facility] [address] [place] [address] Salma Perales DDS Dental caries, unspecified (Primary Dx) 10/07/2024 Travel 10/07/2024 8:00 AM STORES DESPATCH HAND Office Visit [facility] [address] [place] [address] Salma Perales DDS Dental caries, unspecified (Primary [...] 90.7 kg (200 lb) 11/25/2024 1:52 PM STORES DESPATCH HAND Height 177.8 cm (5' 10) 11/25/2024 1:52 PM STORES DESPATCH HAND Body Mass Index 28.7 11/25/2024 1:52 PM STORES DESPATCH HAND Plan of Treatment Not on file Procedures [...] THREE SURFACES, POSTERIOR Routine 01/20/2025 8:00 AM STORES DESPATCH HAND 5 DO RESIN-BASED COMPOSITE - TWO SURFACES, POSTERIOR Routine 01/20/2025 8:00 AM STORES DESPATCH HAND Dental caries, unspecified 4 MOD RESIN-BASED COMPOSITE - THREE SURFACES, POSTERIOR Routine 01/20/2025 8:00 AM STORES DESPATCH HAND Dental caries, unspecified ADJUNCTIVE PRE-DIAGNOSTIC TEST THAT AIDS IN DETECTION OF MUCOSAL ABNORMALITIES Routine 12/24/2024 8:00 AM STORES DESPATCH HAND UL ANTIBACT IRR/QUAD Routine 12/24/2024 8:00 AM STORES DESPATCH HAND 9 UL PERIODONTAL SCALING AND ROOT PLANING - ONE TO THREE TEETH PER QUADRANT Routine 12/24/2024 8:00 AM STORES DESPATCH HAND LL ANTIBACT IRR/QUAD Routine 12/24/2024 8:00 AM STORES DESPATCH HAND 19 LL PERIODONTAL SCALING AND ROOT PLANING - ONE TO THREE TEETH PER QUADRANT Routine 12/24/2024 8:00 AM STORES DESPATCH HAND UR ANTIBACT IRR/QUAD Routine 12/24/2024 8:00 AM STORES DESPATCH HAND 7,3 UR PERIODONTAL SCALING AND ROOT PLANING - ONE TO THREE TEETH PER QUADRANT Routine 12/24/2024 8:00 AM STORES DESPATCH HAND LR ORAL HYGIENE INSTRUCTIONS Routine 12/24/2024 8:00 AM STORES DESPATCH HAND LR PERIODONTAL SCALING AND ROOT PLANING - FOUR OR MORE TEETH PER QUADRANT Routine 12/24/2024 8:00 AM STORES DESPATCH HAND LR ANTIBACT IRR/QUAD Routine 12/24/2024 8:00 AM STORES DESPATCH HAND 6 CEMENT CROWN Routine 12/23/2024 8:00 AM STORES DESPATCH HAND NC X-RAY Routine 12/23/2024 8:00 AM STORES DESPATCH HAND NC X-RAY Routine 12/23/2024 8:00 AM STORES DESPATCH HAND 9 CEMENT CROWN Routine 12/23/2024 8:00 AM STORES DESPATCH HAND 8 CEMENT CROWN Routine 12/23/2024 8:00 AM STORES DESPATCH HAND 7 CEMENT CROWN Routine 12/23/2024 8:00 AM STORES DESPATCH HAND RECEMENT TEMPORARY Routine 12/14/2024 8: 00 AM STORES DESPATCH HAND 6 CROWN PFM POST Routine 12/08/2024 8:00 AM STORES DESPATCH HAND Dental caries, unspecified 9 CROWN PFM POST Routine 12/08/2024 8:00 AM STORES DESPATCH HAND Dental caries, unspecified 8 CROWN PFM POST Routine 12/08/2024 8:00 AM STORES DESPATCH HAND Dental caries, unspecified 7 CROWN PFM POST Routine 12/08/2024 8:00 AM STORES DESPATCH HAND Dental caries, unspecified OS CONSULT Routine 11/25/2024 12:45 PM STORES DESPATCH HAND 2 EXTRACTION, ERUPTED TOOTH REQUIRING REMOVAL OF BONE AND/OR SECTIONING OF TOOTH Routine 11/25/2024 12:45 PM STORES DESPATCH HAND COLLECTION AND APPLICATION OF AUTOLOGOUS BLOOD CONCENTRATE PRODUCT Routine 11/25/2024 12:45 PM STORES DESPATCH HAND 2 UR PRIMARY CLOSURE OF A SINUS PERFORATION Routine 11/25/2024 12:45 PM STORES DESPATCH HAND NC X-RAY Routine 11/16/2024 8:00 AM STORES DESPATCH HAND NC X-RAY Routine 11/16/2024 8:00 AM STORES DESPATCH HAND 11 CEMENT CROWN Routine 11/16/2024 8:00 AM STORES DESPATCH HAND 10 CEMENT CROWN Routine 11/16/2024 8:00 AM STORES DESPATCH HAND 11 CORE BUILDUP, INCLUDING ANY PINS WHEN REQUIRED Routine 11/02/2024 8:00 AM STORES DESPATCH HAND 10 CORE BUILDUP, INCLUDING ANY PINS WHEN REQUIRED Routine 11/02/2024 8:00 AM STORES DESPATCH HAND 11 CROWN PFM POST Routine 11/02/2024 8:0 0 AM STORES DESPATCH HAND Dental caries, unspecified 10 CROWN PFM POST Routine 11/02/2024 8:0 0 AM STORES DESPATCH HAND Dental caries, unspecified INTRAORAL PHOTO Routine 10/07/2024 8:00 AM STORES DESPATCH HAND INTRAORAL PHOTO Routine 10/07/2024 8:00 AM STORES DESPATCH HAND INTRAORAL PHOTO Routine 10/07/2024 8:00 AM STORES DESPATCH HAND INTRAORAL PHOTO Routine 10/07/2024 8:00 AM STORES DESPATCH HAND ADDITIONAL X-RAY Routine 10/07/2024 8:00 AM STORES DESPATCH HAND ADDITIONAL X-RAY Routine 10/07/2024 8:00 AM STORES DESPATCH HAND ADDITIONAL X-RAY Routine 10/07/2024 8:00 AM STORES DESPATCH HAND ADDITIONAL X-RAY Routine 10/07/2024 8:00 AM STORES DESPATCH HAND ADDITIONAL X-RAY Routine 10/07/2024 8:00 AM STORES DESPATCH HAND SINGLE X-RAY Routine 10/07/2024 8:00 AM STORES DESPATCH HAND BITEWINGS - FOUR RADIOGRAPHIC IMAGES Routine 10/07/2024 8:00 AM STORES DESPATCH HAND [facility] [address] CT CAPTURE AND INTERPRETATION WITH FIELD OF VIEW OF BOTH JAWS; WITH OR WITHOUT CRANIUM Routine 10/07/2024 8:00 AM STORES DESPATCH HAND COMPREHENSIVE ORAL EVALUATION - NEW OR ESTABLISHED PATIENT Routine 10/07/2024 8:00 AM STORES DESPATCH HAND Encounter for dental examination and cleaning without abnormal findings 30 B AMALGAM FILLING Routine 10/07/2024 12:00 AM STORES DESPATCH HAND 28 B AMALGAM FILLING Routine 10/07/2024 12:00 AM STORES DESPATCH HAND 19 DOL AMALGAM FILLING Routine 4 12:00 AM STORES DESPATCH HAND 19 B COMPOSITE FILLING Routine 4 12:00 AM STORES DESPATCH HAND 18 B AMALGAM FILLING Routine 10/07/2024 12:00 AM STORES DESPATCH HAND 13 MOD AMALGAM FILLING Routine 4 12:00 AM STORES DESPATCH HAND 12 B COMPOSITE FILLING Routine 4 12:00 AM STORES DESPATCH HAND 12 MOD AMALGAM FILLING Routine 4 12:00 AM STORES DESPATCH HAND 11 MIDF COMPOSITE FILLING Routine 2023 12:00 AM STORES DESPATCH HAND 10 MDF COMPOSITE FILLING Routine 12:00 AM STORES DESPATCH HAND 9 MDF COMPOSITE FILLING Routine 10/07/20 24 12:00 AM STORES DESPATCH HAND 8 MDF COMPOSITE FILLING Routine 10/07/20 24 12:00 AM STORES DESPATCH HAND 7 MDF COMPOSITE FILLING Routine 10/07/20 12:00 AM STORES DESPATCH HAND 5 B COMPOSITE FILLING Routine 10/07/2024 12:00 AM STORES DESPATCH HAND 3 DO AMALGAM FILLING Routine 10/07/2024 12:00 AM STORES DESPATCH HAND 6 MIDF COMPOSITE FILLING Routine 12:00 AM STORES DESPATCH HAND Visit Diagnoses Diagnosis Start Date Dental caries, unspecified 10/07/2024 Encounter for dental examination and cleaning without abnormal findings 10/07/2024 Dental caries, unspecified 11/02/2024 Dental caries, unspecified 12/08/2024 Dental caries, unspecified 01/20/2025 Dental caries, unspecified 02/17/2025 Insurance [facility] COMMERCIAL
--- OUTSIDE RECORDS SUMMARY | 2025-09-22 14:13 | XMS_ITS | Encounter Summary ---
Author Organization [facility] Address [address] [place] [address] Care Team Providers Care Straw Baler Name Role Phone Cony Blake NP Primary Care Provider [phone] Reason for Visit * Reason Onset Date Comments TCM 09/21/2025 Encounter Details Date Type Department Care Team (Late st Contact Info) Description 09/21/2025 Telephone [facility] Family Medicine - [place] [address] [facility] [address] [place] [address] Cony Blake NP [address] [place] [address] TCM Social History Tobacco Use Types Packs/Day Years Used Date Smoking Tobacco: Every Day Cigarettes 0.5 10 Passive Smoke Exposure: Past Smokeless Tobacco: Former Chew Alcohol Use Standard Drinks/Week Comments Yes 0 (1 standard drink = 0.6 oz pure alcohol) every other days, takes a few shots PHQ-2 Answer Date Recorded Patient Health Questionnaire-2 Score 2 12/31/2024 Sex and Gender Information Value Date Recorded Sex Assigned at Male 12/31/2024 8:40 AM AUTO GLASS TECHNICIAN Legal Sex Male 8:06 PM CDT Gender Identity Male 12/31/2024 8:40 AM AUTO GLASS TECHNICIAN Sexual Orientation Straight 12/31/2024 8: 40 AM AUTO GLASS TECHNICIAN documented as of this encounter Progress Notes * Rosalina Byrd MA - 09/21/2025 11:42 AM CST I called and spoke with the patient about his bloody nose. He said it comes and goes. It's so random but usually with getting up or bending over. His blood pressure is 140/100, no dizziness. As far as the Adderall and Vyvanse, he took Vyvanse on Friday the day the nose bleeds started but has not taken anything in about 3 weeks. He is not go to take any more stimulants due to his blood pressure. I advised the patient if nose bleeds do not stop he might have to re visit the ER. He voiced understanding. GLASS TECHNICIAN * Rosalina Byrd MA - 09/21/2025 11:37 AM CST Follow up call to patient post hospitalization Date of hospital discharge: 09/20/2025 Patient discharged from: [facility] Discharge diagnosis/diagnoses: Epistaxis in setting of HTN Polycythemia Uncontrolled HTN CKD Procedures performed while inpatient: No Begin the medication reconciliation process (completed at first face to face visit) Any follow up services needed: Yes. pcp Education on self management: Yes. Educated on discharge Assess adherence with treatment (medication) regimen and provide support. Does patient have access to care and services (rides, etc)? Yes. self Appointment scheduled for follow up in the office (7 days if high complexity or within 14 days for medium complexity) Appointment Date: 09/21/2025 Time: 3:00 pm GLASS TECHNICIAN documented in this encounter Plan of Treatment Upcoming Encounters Date Type Department Care Team (Late st Contact Info) Description 09/26/2025 3:00 PM AUTO GLASS TECHNICIAN Office Visit [facility] Family Medicine [facility] [place] [address] [facility] [address] [place] [address] Cony Blake NP [address] [place], [place] [id number] documented as of this encounter Visit Diagnoses Not on filedocumented in this encounter Additional Health Concerns Assessment Noted Time PHQ-9 Depression Total Score: 4 12/31/19 25 9:03 AM AUTO GLASS TECHNICIAN documented as of this encounter Care Teams Straw Baler Relationship Specialty Start Date End Date Cony Blake NP [address] [place], [place] [id number] PCP - General NURSE PRACTITIONER 06/20/23 documented as of this encounter
--- OUTSIDE RECORDS SUMMARY | 2025-09-22 14:13 | XMS_ITS | Clinical Summary ---
Author Organization [facility] Address Formerly [facility] [place] [address] Care Team Providers Care Conflicts Analyst Name Role Phone Cony Blake NP Primary Care Provider [phone] Allergies Active Allergy Reactions Criticality Noted Date [...] him. Assessment & Plan (01/19/2025 8:51 AM [employer]): Will obtain echo and exercise stress test. Any severe chest pain, shortness of breath, jaw pain, left shoulder pain to seek ER care. Proteinuria, unspecified type 07/29/2024 Overview (12/31/2024): Follows with nephrology. Assessment & Plan (12/31/2024 9:03 AM [employer]): Follow up with nephrology as directed.To preserve [...] PND. Assessment & Plan (01/19/2025 9:02 AM [employer]): Chronic condition that is not controlled.Avoid excess caffeine, avoid stimulant use, avoid vaping, limit stressors. Pt to begin amlodipine 10mg daily, losartan 25mg daily and resume carvedilol 6.25mg BID. Assessment & Plan (12/31/2024 9:03 AM [employer]): Chronic condition that is not controlled. There [...] today. Assessment & Plan (01/19/2025 8:53 AM [employer]): Rechecking today. Assessment & Plan (12/31/2024 9:04 AM [employer]): Will recheck labs. Could be also causing some of his issues. Assessment & Plan (07/29/2024 8:47 AM CDT): Will recheck and provide further recommendations once back. At risk for obstructive sleep apnea 06/21/2023 Overview (01/19/2025): Needs to schedule this still. Assessment & Plan (01/19/2025 8:47 AM [employer]): Pt to schedule his home sleep study in near future. Assessment & Plan (12/31/2024 9:11 AM [employer]): Sleep study reordered. Patient has multiple risk [...] month. Assessment & Plan (01/19/2025 9:05 AM [employer]): Continue to follow with psychiatry as directed. Encourage therapy as well. His anxiety and depression is currently well controlled. Assessment & Plan (12/31/2024 9:08 AM [employer]): Continue to follow with psychiatry as directed. [...] psychiatry. Assessment & Plan (01/19/2025 8:48 AM [employer]): Recommend Guanfacine, Straterra, or Clonidine instead of Vyvance. Pt to discuss with his psychiatrist. He is working on stopping his Vyvance. He is taking less often now. Assessment & Plan (12/31/2024 9:00 AM [employer]): I informed patient that I am uncomfortable [...] up. Assessment & Plan (12/31/2024 9:01 AM [employer]): Patient to keep me updated on his [...] CDT): Encourage smoking cessation. Other fatigue 06/21/2023 Encounters Date Type Department Care Team Description 09/21/2025 Telephone [facility] Medical [facility] [address] [place] [address] Cony Blake NP [facility] 09/21/2025 Telephone [facility] [address] [place] [address] Cony Blake NP TCM 08/11/2025 Scan [facility] SRVCS Scanned, [facility] from Last 3 Months Immunizations Immunization Administration Dates Next Due FLUCELVAX [...] Sex Assigned at Male 12/31/2024 8:40 AM [employer] Legal Sex Male 8:06 PM CDT Gender Identity Male 12/31/2024 8:40 AM [employer] Sexual Orientation Straight 12/31/2024 8: 40 AM [employer] Last Filed Vital Signs Vital Sign Reading Time Taken Comments Blood Pressure 150/102 01/19/2025 8:56 AM [employer] Pulse 86 01/19/2025 8:19 AM [employer] Temperature 36.1 C (97 F) 01/19/2025 8:19 AM [employer] Respiratory Rate 20 01/19/2025 8:19 AM [employer] Oxygen Saturation 100% 01/19/2025 8:19 AM [employer] Inhaled Oxygen Concentration - - Weight 90.3 kg (199 lb) 01/19/2025 8:19 AM [employer] Height 177.8 cm (5' 10) 01/19/2025 8:19 AM [employer] Body Mass Index 28.55 01/19/2025 8:19 AM [employer] Plan of Treatment Upcoming Encounters Date Type Department Care Team (Late st Contact Info) Description 09/26/2025 3:00 PM [employer] Office Visit [facility] - [place] [address] [place], [place] [id number] Cony Blake, SOFTWARE APPLICATIONS SPECIALIST [address] [place], [place] [id number] Health Maintenance Due Date Last Done Comments Hepatitis B Vaccines (1 of 3 - 19+ 3-dose series) 2004 Pneumococcal Vaccine: Pediatrics (0 to 5 Years) and At-Risk Patients (6 to 49 Years) (1 of 2 - PCV) 2004 HPV Vaccines (1 - 3-dose SCD M series) 2012 COVID-19 Vaccine (3 - 2024-2 6 season) 2025 06/28/2021, 05/08/2021 Annual Physical 07/29/2025 07/29/2024, 06/20/2023 Influenza Adult (#1) 2025 09/18/2024, 02/12/2016 DTaP, Tdap and Td Vaccines ( 2 - Td or Tdap) 09/18/2027 09/18/2017 Hepatitis C Completed 06/23/2023 PHQ-2 (Physician [place]) Completed 12/31/2024 Hepatitis A Vaccines Aged Out No long er eligible based on patient's age to complete this topic Meningococcal B Vaccine Aged Out No l [...] HEPATITIS C AB NON-REACT PASTORA NON-REACT PASTORA [facility] Comment: HCV antibody was non-reactive. There is no laboratory evidence of HCV infection. In most cases, no further action is required. However, if recent HCV exposure is suspected, a test for HCV RNA (test code 10269) is suggested. For additional information please refer to http://education.[employer]/faq/JTK81a4 (This link is being provided for informational/ educational purposes only.) 06/23/2023 7:28 AM CDT 06/23/2023 7:30 AM CDT Narrative [facility] - [facility] - 07/02/2023 10:17 AM CDT FASTING:YES FASTING: YES Resulting Agency Comment Performing Organization Information: Site ID: [place] Name: [facility] Address: [address] [place] [id number] Director: Farzaneh Wade MD us Cony Blake NP LABORATORY Final Res ult [facility] [employer] [facility] [id number] [place] [address] [id number] from Last 3 Months or Most Recently Relevant to Health Maintenance Insurance [facility] MEDICAID Care Teams Conflicts Analyst Relationship Specialty Start Date End Date Cony Blake NP [address] [place] [address] PCP - General NURSE PRACTITIONER 06/20/23
--- OUTSIDE RECORDS SUMMARY | 2025-09-22 14:13 | XMS_ITS | Clinical Summary ---
Author Organization [facility] Address [address] [place] [address] Care Team Providers Care [employer] Teacher Name Role Phone Cony Blake APRN-HORTICULTURAL FARM MANAGER Primary Care Provi cam Source Comments [facility],non-owned Affiliates and Associated Physician Practices is amultiple site organization consisting of ambulatory clinics and hospital sitesin [place], [place], [place] and [place]. This disclosure is being madepursuant to the Care Everywhere program and may not contain all information available regarding this patient. Last updated 18.[facility] Allergies Active Allergy Reactions Criticality Noted Date [...] Department Care Team Description 09/19/2025 10:43 AM STEAM SHOVEL RUNNER - 09/20/2025 1:35 PM [facility] Hospital Encounter [facility]S [facility] [address] [place] [phone] Yolanda Zelaya MD Sallis, Milton, MD Muthy[place], [...] care, and heating? Not very hard 09/08/2024 [facility] of Occupat ional Health - Occupational Stress [...] any time in the past 12 m [facility], were you homeless or living in a jail (including now)? No 09/08/2024 AUDIT-C Answer Date [...] on file Legal Sex Male 5:50 PM STEAM SHOVEL RUNNER Gender Identity Not on file Sexual Orientation Not on file Last Filed Vital Signs Vital Sign Reading Time Taken Comments Blood Pressure 119/90 09/20/2025 11:18 AM STEAM SHOVEL RUNNER Pulse 81 09/20/2025 11:18 AM STEAM SHOVEL RUNNER Temperature 36.6 C (97.9 F) 09/20/2025 11:18 AM STEAM SHOVEL RUNNER Respiratory Rate 18 09/20/2025 11:18 AM STEAM SHOVEL RUNNER Oxygen Saturation 99% 09/20/2025 11:18 AM STEAM SHOVEL RUNNER Inhaled Oxygen Concentration - - Weight 90.7 kg (200 lb) 09/19/2025 10:47 AM STEAM SHOVEL RUNNER Height 177.8 cm (5' 10) 09/19/2025 10:47 AM STEAM SHOVEL RUNNER Body Mass Index 28.7 09/19/2025 10:47 AM STEAM SHOVEL RUNNER Plan of Treatment Upcoming Encounters Date Type Department Care Team (Late st Contact Info) Description 10/06/2025 8:20 AM STEAM SHOVEL RUNNER Documentation [address] [phone] 10/06/2025 8:40 AM STEAM SHOVEL RUNNER Office Visit [facility] Cancer [address] [phone] [place] [id number] [phone] Health Maintenance Due Date Last [...] Diagnosis Comments ERYTHROPOIETIN Routine 09/20/2025 10:35 AM STEAM SHOVEL RUNNER Erythrocytosis CARBON MONOXIDE Routine 09/20/2025 8:28 AM STEAM SHOVEL RUNNER Erythrocytosis CBC W/O DIFFERENTIAL Routine 09/20/2025 4:01 AM STEAM SHOVEL RUNNER Hypertensive urgency Epistaxis BASIC METABOLIC PANEL (CALCIUM TOTAL) Routine 09/20/2025 4:01 AM STEAM SHOVEL RUNNER Sinus tachycardia Hypertensive urgency Epistaxis TROPONIN-I HIGH SENSITIVE REFLEX 1HOUR Timed 09/19/2025 1:12 PM STEAM SHOVEL RUNNER EKG 12-LEAD STAT 09/19/2025 1:04 PM STEAM SHOVEL RUNNER Sinus tachycardia URINALYSIS REFLEX MICROSCOPIC REFLEX CULTURE STAT 09/19/2025 11:04 AM STEAM SHOVEL RUNNER ALCOHOL ETHYL BLOOD Add on 09/19/2025 1 1:00 AM STEAM SHOVEL RUNNER NT-PRO BNP Add on 09/19/2025 11:00 AM STEAM SHOVEL RUNNER TROPONIN-I HIGH SENSITIVE BASELINE + 1HR Add on 09/19/2025 11:00 AM STEAM SHOVEL RUNNER COMPREHENSIVE METABOLIC PANEL STAT 09/19/2025 11:00 AM STEAM SHOVEL RUNNER CBC W AUTO DIFFERENTIAL STAT 09/19/2025 11:00 AM STEAM SHOVEL RUNNER LIPID PROFILE Routine 09/09/2024 6:13 AM CDT from Last 3 Months or Most Recently Relevant to Health Maintenance Results * ERYTHROPOIETIN (09/20/2025 10:35 AM STEAM SHOVEL RUNNER) Erythropoietin 11.7 2.6 - 18.5 mIU/mL 09/21/2025 5:10 PM STEAM SHOVEL RUNNER [facility] ([facility]) Comment: Frannie Nimb[employer] Conceptsel DxI 800 Immunoassay System Values obtained with different assay methods or kits cannot be used interchangeably. Results cannot be interpreted as absolute evidence of the presence or absence of malignant disease. Blood BLOOD SPECIMEN / Unknown Venipuncture / Unknown 09/20/2025 10:35 AM STEAM SHOVEL RUNNER 09/20/2025 10:42 AM STEAM SHOVEL RUNNER Narrative [facility] ([facility]) - 09/21/2025 5:10 PM STEAM SHOVEL RUNNER Performed at: Lab[address] [id number] [employer] Line Examiner: Mikael Whaley PhD, Phone: [phone] Mani Goode MD LAB - CHEMISTRY ORDERABLES Shante l Result Performing Organization Address City/[facility]/ZIP Co de Phone Number [facility]) [address] [place] [address] * (ABNORMAL) CARBON MONOXIDE (09/20/2025 8:28 AM STEAM SHOVEL RUNNER) [facility] Carboxyhemoglobin 3.5(H) 0.0 - 2.0 % 09/20/2025 10:41 AM STEAM SHOVEL RUNNER [facility] RESP THERAPY Perry's Test NA 09/20/2025 10:41 AM STEAM SHOVEL RUNNER [facility] RESP THERAPY Sample Site Other 09/20/2025 10:41 AM STEAM SHOVEL RUNNER [facility] RESP THERAPY Blood BLOOD SPECIMEN / Unknown 09/20/2025 8:28 AM STEAM SHOVEL RUNNER 09/20/2025 8:28 AM STEAM SHOVEL RUNNER Mani Goode MD LAB - BLOOD GASES ORDERABLES Fi nal Result Performing Organization Address City/[facility]/ZIP Co de Phone Number [facility] RESP THERAPY [address] [place] [address] * (ABNORMAL) CBC W/O DIFFERENTIAL (09/20/2025 4:01 AM STEAM SHOVEL RUNNER) [facility] WBC 11.3(H) 4.0 - 10.7 x10E9/L 09/20/2025 4:17 AM STEAM SHOVEL RUNNER [facility] RBC Count 5.07 4.30 - 5.80 x10E12/L 09/20/2025 4:17 AM [facility] Hemoglobin 15.6 13.3 - 17.5 g/dL 09/20/2025 4:17 AM [facility] Hematocrit 46.3 38.7 - 51.1 % 09/20/2025 4:17 AM [facility] MCV 91.3 80.0 - 98.0 fL 09/20/2025 4:17 AM [facility] MCH 30.8 26.7 - 33.6 pg 09/20/2025 4:17 AM [facility] MCHC 33.7 31.7 - 36.3 g/dL 09/20/2025 4:17 AM [facility] RDW-CV 13.0 11.3 - 14.8 % 09/20/2025 4:17 AM [facility] Platelet Count 243 150 - 420 x10E9/L 09/20/2025 4:17 AM [facility] MPV 10.3 7.8 - 11.4 fL 09/20/2025 4:17 AM [facility] Blood BLOOD SPECIMEN / Unknown Venipuncture / Unknown 09/20/2025 4:01 AM STEAM SHOVEL RUNNER 09/20/2025 4:07 AM [facility] Suzy Martinez MD LAB - HEMATOLOGY ORDERABLES Shante l Result [facility] [address] [place] [phone] * (ABNORMAL) BASIC METABOLIC PANEL (CALCIUM TOTAL) (09/20/2025 4:01 AM [facility]) Glucose 102(H) 70 - 99 mg/dL 09/20/2025 4:30 AM [facility] Sodium 136 136 - 145 mmol/L 09/20/2025 4:30 AM [facility] Potassium 4.3 3.5 - 5.1 mmol/L 09/20/2025 4:30 AM [facility] Chloride 108(H) 98 - 107 mmol/L 09/20/2025 4:30 AM [facility] CO2 23 22 - 29 mmol/L 09/20/2025 4:30 AM [facility] Calcium 8.7 8.4 - 10.4 mg/dL 09/20/2025 4:30 AM [facility] Anion Gap 5(L) 6 - 16 mmol/L 09/20/2025 4:30 AM [facility] BUN 20(H) 5.3 - 18.7 mg/dL 09/20/2025 4:30 AM [facility] Creatinine 1.46(H) 0.60 - 1.20 mg/dL 09/20/2025 4:30 AM [facility] eGFR by CKD-EPI 62(L) >=90 mL/min/1.7 3 m2 09/20/2025 4:30 AM [facility] Comment:Estimated Glomerular Filtration Rate (eGFR) calculated using the CKD-EPI Creatinine Equation (2020), per the National Kidney Foundation and [place] Society of Nephrology recommendations. Blood BLOOD SPECIMEN / Unknown Venipuncture / Unknown 09/20/2025 4:01 AM STEAM SHOVEL RUNNER 09/20/2025 4:07 AM STEAM SHOVEL RUNNER Suzy Martinez MD LAB - CHEMISTRY ORDERABLES Final Result Performing Organization Address City/[facility]/ZIP Co de Phone Number [facility] [address] [place] [address] * TROPONIN-I HIGH SENSITIVE REFLEX 1HOUR (09/19/2025 1:12 PM STEAM SHOVEL RUNNER) Troponin I High Sensitive 11 <=35 ng/L 09/19/2025 1:37 PM STEAM SHOVEL RUNNER [facility] Delta Troponin I HS 09/19/2025 1:37 PM STEAM SHOVEL RUNNER [facility] Comment:Delta value intentio miky not calculated. Baseline to 1 hour specimen collection interval exceeded. Blood BLOOD SPECIMEN / Unknown Venipuncture / Unknown 09/19/2025 1:12 PM STEAM SHOVEL RUNNER 09/19/2025 1:14 PM STEAM SHOVEL RUNNER Murray Richard MD LAB - CHEMISTRY ORDERABLES Shante l Result Performing Organization Address City/[facility]/ZIP Co de Phone Number [facility] [address] [place] [address] * EKG 12-Lead (09/19/2025 1:04 PM STEAM SHOVEL RUNNER) Ventricular Rate 113 BPM [facility] Atrial Rate 113 BPM [facility] P-R Interval 148 ms [facility] QRS Duration ms 76 ms [facility] Q-T Interval ms 342 ms [facility] QTC Calculation (Bezet) 469 ms [facility] Calculated P [place] 67 degrees [facility] Calculated R [place] -19 degrees [facility] Calculated T [place] 75 degrees [facility] Interpretation EKG Sinus tachycardia Possible Inferior infarct , age undetermined Abnormal ECG No previous ECGs available Confirmed by LIANNA ROSE MD ([id number]) on 09/19/2025 6:28:09 PM [facility] 09/19/2025 1:04 PM STEAM SHOVEL RUNNER 09/19/2025 6:28 PM [facility] Murray Richrad MD ECG ORDERABLES Edited Result - Final [facility] * (ABNORMAL) URINALYSIS REFLEX MICROSCOPIC REFLEX CULTURE (09/19/2025 11:04 AM STEAM SHOVEL RUNNER) Color UA Yellow Yellow, Straw 09/19/2025 11:26 AM [facility] Clarity UA Clear Clear 09/19/2025 11:26 AM [facility] Glucose UA Normal Normal 09/19/2025 11:26 AM [facility] Bilirubin UA Negative Negative 09/19/2025 11:26 AM [facility] Ketone UA Negative Negative 09/19/2025 11:26 AM [facility] Specific [place] UA 1.026 1.005 - 1.030 09/19/2025 11:26 AM [facility] Blood UA 3+(A) Negative 09/19/2025 11:26 AM [facility] pH UA 6.0 5.0 - 8.0 09/19/2025 11:26 AM [facility] Protein UA 2+(A) Negative 09/19/2025 11:26 AM [facility] Urobilinogen UA Normal Normal mg/dL 09/19/2025 11:26 AM [facility] Nitrite UA Negative Negative 09/19/2025 11:26 AM STEAM SHOVEL RUNNER [facility] Leukocyte Esterase UA Negative Negative 09/19/2025 11:26 AM STEAM SHOVEL RUNNER [facility] RBC UA 11-20(A) 0 - 5 # /hpf 09/19/2025 11:26 AM STEAM SHOVEL RUNNER [facility] WBC UA 0-5 0 - 5 # /hpf 09/19/2025 11:26 AM STEAM SHOVEL RUNNER [facility] Bacteria UA None Seen None Seen 09/19/2025 11:26 AM STEAM SHOVEL RUNNER [facility] Squamous Epithelial Cells 0-2 0 - 5 /hpf 09/19/2025 11:26 AM STEAM SHOVEL RUNNER [facility] Mucus UA 3+ /LPF 09/19/2025 11:26 AM STEAM SHOVEL RUNNER [facility] Hyaline Casts 0-2 0 - 2 /LPF 09/19/2025 11:26 AM [facility] Reflex Status Culture not indicated 09/19/2025 11:26 AM [facility] Urine URINE SPECIMEN OBTAINED BY CLEAN CATCH PROCEDURE / Unknown Collection / Unknown 09/19/2025 11:04 AM STEAM SHOVEL RUNNER 09/19/2025 11:08 AM STEAM SHOVEL RUNNER Murray Richard MD LAB - URINALYSIS ORDERABLES Fin al Result [facility] [address] [place] [address] * NT-PRO BNP (09/19/2025 11:00 AM STEAM SHOVEL RUNNER) NT-proBNP 253.7 <450.0 pg/mL 09/19/2025 1:21 PM [facility] Blood BLOOD SPECIMEN / Unknown Venipuncture / Unknown 09/19/2025 11:00 AM STEAM SHOVEL RUNNER 09/19/2025 11:07 AM STEAM SHOVEL RUNNER Narrative [facility] - 09/19/2025 1:21 PM STEAM SHOVEL RUNNER NT-pro-BNP values below 300 pg/mL, for individuals [...] ORDERABLES Shante l Result Performing Organization Address City/[facility] Co de Phone Number [facility] [id number] [place] [phone] * TROPONIN-I HIGH SENSITIVE BASELINE + 1HR (09/19/2025 11:00 AM STEAM SHOVEL RUNNER) [facility] Troponin I High Sensitive 12 <=35 ng/L 09/19/2025 1:21 PM STEAM SHOVEL RUNNER [facility] Blood BLOOD SPECIMEN / Unknown Venipuncture / Unknown 09/19/2025 11:00 AM STEAM SHOVEL RUNNER 09/19/2025 11:07 AM STEAM SHOVEL RUNNER us Murray Richard MD LAB - CHEMISTRY ORDERABLES Shante l Result Performing Organization Address [facility] de Phone Number [facility] [id number] [place] [address] * (ABNORMAL) CBC W AUTO DIFFERENTIAL (09/19/2025 11:00 AM STEAM SHOVEL RUNNER) [facility] WBC 11.2(H) 4.0 - 10.7 x10E9/L 09/19/2025 11:26 AM STEAM SHOVEL RUNNER [facility] RBC Count 6.33(H) 4.30 - 5.80 x10E12/L 09/19/2025 11:26 AM STEAM SHOVEL RUNNER [facility] Hemoglobin 19.7(H) 13.3 - 17.5 g/dL 09/19/2025 11:26 AM STEAM SHOVEL RUNNER [facility] Hematocrit 58.2(H) 38.7 - 51.1 % 09/19/2025 11:26 AM STEAM SHOVEL RUNNER [facility] MCV 91.9 80.0 - 98.0 fL 09/19/2025 11:26 AM STEAM SHOVEL RUNNER [facility] MCH 31.1 26.7 - 33.6 pg 09/19/2025 11:26 AM STEAM SHOVEL RUNNER [facility] MCHC 33.8 31.7 - 36.3 g/dL 09/19/2025 11:26 AM STEAM SHOVEL RUNNER [facility] RDW-CV 12.9 11.3 - 14.8 % 09/19/2025 11:26 AM [facility] Platelet Count 288 150 - 420 x10E9/L 09/19/2025 11:26 AM [facility] MPV 10.4 7.8 - 11.4 fL 09/19/2025 11:26 AM [facility] Neutrophil % 67.9 41.0 - 74.0 % 09/19/2025 11:26 AM [facility] Lymphocyte % 22.2 17.0 - 47.0 % 09/19/2025 11:26 AM [facility] Monocyte % 6.7 3.0 - 11.0 % 09/19/2025 11:26 AM [facility] Eosinophil % 0.8 0.0 - 7.0 % 09/19/2025 11:26 AM [facility] Basophil % 1.1 0.0 - 1.6 % 09/19/2025 11:26 AM [facility] Immature Granulocytes % 1.3(H) 0.0 - 1.0 % 09/19/2025 11:26 AM [facility] Neutrophil Absolute 7.63(H) 1.60 - 7.50 x10E9/L 09/19/2025 11:26 AM [facility] Lymphocyte Absolute 2.49 1.00 - 4.40 x10E9/L 09/19/2025 11:26 AM [facility] Monocyte Absolute 0.75 0.15 - 1.00 x10E9/L 09/19/2025 11:26 AM [facility] Eosinophil Absolute 0.09 0.00 - 0.60 x10E9/L 09/19/2025 11:26 AM [facility] Basophil Absolute 0.12 0.00 - 0.13 x10E9/L 09/19/2025 11:26 AM [facility] Blood BLOOD SPECIMEN / Unknown Venipuncture / Unknown 09/19/2025 11:00 AM STEAM SHOVEL RUNNER 09/19/2025 11:07 AM STEAM SHOVEL RUNNER us Yolanda Zelaya MD LAB - HEMATOLOGY ORDERABLES Fi nal Result [facility] [address] [place] [address] * (ABNORMAL) COMPREHENSIVE METABOLIC PANEL (09/19/2025 11:00 AM [facility]) [facility] Signature Glucose 94 70 - 99 mg/dL 09/19/2025 11:24 AM [facility] Sodium 141 136 - 145 mmol/L 09/19/2025 11:24 AM [facility] Potassium 4.3 3.5 - 5.1 mmol/L 09/19/2025 11:24 AM [facility] Chloride 106 98 - 107 mmol/L 09/19/2025 11:24 AM [facility] CO2 25 22 - 29 mmol/L 09/19/2025 11:24 AM [facility] Calcium 9.8 8.4 - 10.4 mg/dL 09/19/2025 11:24 AM [facility] Anion Gap 10 6 - 16 mmol/L 09/19/2025 11:24 AM [facility] BUN 20(H) 5.3 - 18.7 mg/dL 09/19/2025 11:24 AM [facility] Creatinine 1.65(H) 0.60 - 1.20 mg/dL 09/19/2025 11:24 AM [facility] Alkaline Phosphatase 67 40 - 150 U/L 09/19/2025 11:24 AM [facility] ALT 36 6 - 57 U/L 09/19/2025 11:24 AM [facility] AST 30 10 - 48 U/L 09/19/2025 11:24 AM [facility] Protein Total 7.9 6.4 - 8.3 gm/dL 09/19/2025 11:24 AM [facility] Albumin 4.2 3.1 - 4.5 gm/dL 09/19/2025 11:24 AM [facility] Bilirubin Total 0.5 0.2 - 1.2 mg/dL 09/19/2025 11:24 AM [facility] eGFR by CKD-EPI 54(L) >=90 mL/min/1.7 3 m2 09/19/2025 11:24 AM [facility] Comment:Estimated Glomerular Filtration Rate (eGFR) calculated using the CKD-EPI Creatinine Equation (2020), per the National Kidney Foundation and [place] [employer] Nephrology recommendations. Blood BLOOD SPECIMEN / Unknown Venipuncture / Unknown 09/19/2025 11:00 AM STEAM SHOVEL RUNNER 09/19/2025 11:07 AM STEAM SHOVEL RUNNER Murray Richard MD LAB - CHEMISTRY ORDERABLES Shante almonte Result Performing Organization Address [facility] Co de Phone Number [facility] [id number] [place] [phone] * ALCOHOL ETHYL BLOOD (09/19/2025 11:00 AM STEAM SHOVEL RUNNER) Ethanol <10.0 <10 mg/dL 09/19/2025 1:55 PM STEAM SHOVEL RUNNER [facility] Ethanol Calculated <0.010 <=0.100 gm/dL 09/19/2025 1:55 PM STEAM SHOVEL RUNNER [facility] Blood BLOOD SPECIMEN / Unknown Venipuncture / Unknown 09/19/2025 11:00 AM STEAM SHOVEL RUNNER 09/19/2025 11:07 AM STEAM SHOVEL RUNNER Narrative [facility] - 09/19/2025 1:55 PM STEAM SHOVEL RUNNER Ethanol Interp <10: None Detected Depression of [...] ORDERABLES Shante almonte Result Performing Organization Address [facility] Co de Phone Number [facility] [address] [place] [address] * (ABNORMAL) LIPID PROFILE (09/09/2024 6:13 AM CDT) Cholesterol 186 <200 mg/dL 09/09/2024 6:[address] [facility] Triglycerides 155(H) <150 mg/dL 09/09/2024 6:[address] [facility] HDL Cholesterol 53 >40 mg/dL 6:[address] [facility] Chol HDL Ratio 3.5 1.0 - 6.0 09/09/2024 6:[address] [facility] LDL Calculated 102 65 - 130 mg/dL 09/09/2024 6:[address] [facility] VLDL Calculated 31(H) <=30 mg/dL 6:[address] [facility] Blood BLOOD SPECIMEN / Unknown Lab Venipuncture / Unknown 09/09/2024 6:13 AM CDT 09/09/2024 6:[address] [facility] - 09/09/2024 6:44 AM CDT Lipid [...] 9.5 ...................... 7.0 3X AVERAGE...................>23........................>11 Yesi Conteh MARINE INSURANCE CLAIM EXAMINER-HORTICULTURAL FARM MANAGER LAB - CHEMISTRY ORDERAB LES Final Result [facility] [address] [place] [address], [facility] from Last 3 Months or Most Recently Relevant to Health Maintenance Insurance MEDICAID - [place] [facility] Advance Directives * Full Code (Latest Code Status on File) Date Activated Date Inactivated Comments 09/19/2025 2:20 PM 09/20/2025 2:51 PM * Full Code Date Activated Date Inactivated Comments 09/08/2024 8:38 AM 09/11/2024 11:23 AM Care Teams [employer] Agriculture Teacher Relationship Specialty Start Date End Date Cony Blake APRN-HORTICULTURAL FARM MANAGER [address] [place] [address] PCP - General Nurse Practitioner 09/08/24
--- OUTSIDE RECORDS SUMMARY | 2025-09-22 14:13 | XMS_ITS | Encounter Summary ---
Author Organization [facility] Address [address] [place] [phone] Care Team Providers Care Male Infertility Specialist Name Role Phone Cony Blake NP Primary Care Provider [phone] Reason for Visit * Reason Onset Date Comments TCM 09/21/2025 Encounter Details Date Type Department Care Team (Late st Contact Info) Description 09/21/2025 Telephone [facility] Family Medicine - [place] [phone] [facility] [address] [place] [phone] Cony Blake NP [address] [place], [place] [phone] TCM Social History Tobacco Use Types Packs/Day [...] Sex Assigned at Male 12/31/2024 8:40 AM PRINTING TABLE HAND Legal Sex Male 8:06 PM CDT Gender Identity Male 12/31/2024 8:40 AM PRINTING TABLE HAND Sexual Orientation Straight 12/31/2024 8: 40 AM PRINTING TABLE HAND documented as of this encounter Progress Notes * Rosalina Byrd MA - 09/21/2025 12:12 PM CST I create a TCM phone note. I also called the patient TING TABLE HAND * Tati Carrington - 09/21/2025 11:26 AM CST TCM scheduled for today. He was discharged from [facility] yesterday for HTN and nosebleed. His nose started bleeding again today. TING TABLE HAND documented in this encounter Plan of Treatment Upcoming Encounters Date Type Department Care Team (Late st Contact Info) Description 09/26/2025 3:00 PM PRINTING TABLE HAND Office Visit [facility] Family Medicine - [place] [address] [facility] [address] [place] [address] Cony Blake NP [address] [place] [address] documented as of this encounter Visit Diagnoses Not on filedocumented in this encounter Additional Health Concerns Assessment Noted Time PHQ-9 Depression Total Score: 4 12/31/19 25 9:03 AM PRINTING TABLE HAND documented as of this encounter Care Teams Male Infertility Specialist Relationship Specialty Start Date End Date Cony Blake NP [address] [place] [address] PCP - General NURSE PRACTITIONER 06/20/23 documented as of this encounter
--- OUTSIDE RECORDS SUMMARY | 2025-09-22 14:13 | XMS_ITS | Clinical Summary ---
Author Organization [facility] Address [address] [place] [address] Care Team Providers Care Chair Installer Name Role Phone Unavailable Primary Care Provider [...] 90.7 kg (200 lb) 11/25/2024 1:52 PM COLLECTION ADVISOR Height 177.8 cm (5' 10) 11/25/2024 1:52 PM COLLECTION ADVISOR Body Mass Index 28.7 11/25/2024 1:52 PM COLLECTION ADVISOR Plan of Treatment Health Maintenance Due Date [...] TEETH PER QUADRANT Routine 12/24/2024 8:00 AM COLLECTION ADVISOR ADJUNCTIVE PRE-DIAGNOSTIC TEST THAT AIDS IN DETECTION OF MUCOSAL ABNORMALITIES Routine 12/24/2024 8:00 AM COLLECTION ADVISOR [facility] CT CAPTURE AND INTERPRETATION WITH FIELD OF VIEW OF BOTH JAWS; WITH OR WITHOUT CRANIUM Routine 10/07/2024 8:00 AM COLLECTION ADVISOR COMPREHENSIVE ORAL EVALUATION - NEW OR ESTABLISHED PATIENT Routine 10/07/2024 8:00 AM COLLECTION ADVISOR Encounter for dental examination and cleaning without abnormal findings from Last 3 Months or Most Recently Relevant to Health Maintenance Insurance [facility]
--- OUTSIDE RECORDS SUMMARY | 2025-09-22 14:13 | XMS_ITS | Encounter Summary ---
Author Organization [facility] Address [address] [place] [id number] Care Team Providers Care Vet Assistant Name Role Phone Cony Blake NP Primary Care Provider [phone] [phone] Encounter Details Date Type Department Care Team (Late st Contact Info) Description 07/08/2023 MyChart Message Enc [facility] [address] [facility] [address] [place] [address] Cony Blake NP [address] [place] [address] follow up Social History Tobacco Use [...] Sex Assigned at Male 12/31/2024 8:40 AM EMERGENCY MANAGEMENT SPECIALIST Legal Sex Male 8:06 PM CDT Gender Identity Male 12/31/2024 8:40 AM EMERGENCY MANAGEMENT SPECIALIST Sexual Orientation Straight 12/31/2024 8: 40 AM EMERGENCY MANAGEMENT SPECIALIST documented as of this encounter Plan of Treatment Upcoming Encounters Date Type Department Care Team (Late st Contact Info) Description 09/26/2025 3:00 PM EMERGENCY MANAGEMENT SPECIALIST Office Visit [facility] [address] [facility] [address] [place] [address] Cony Blake NP [address] [place] [address] documented as of this encounter Visit Diagnoses Not on filedocumented in this encounter Additional Health Concerns Infection Onset Date Last Indicated Resolved Time COVID-19 Rule Out 09/07/2024 09/07/2024 09/07/2024 9:27 PM CDT Assessment Noted Time PHQ-9 Depression Total Score: 14 023 11:24 AM CDT documented as of this encounter Care Teams Vet Assistant Relationship Specialty Start Date End Date Cony Blake NP [address] [place] [address] PCP - General NURSE PRACTITIONER 06/20/23 documented as of this encounter
--- OUTSIDE RECORDS SUMMARY | 2025-09-22 14:13 | XMS_ITS | Encounter Summary ---
Author Organization [facility] Address [address] [place] [address] Care Team Providers Care Brand Sales Consultant Name Role Phone Unavailable Primary Care Provider Unavailabl e Prior Encounters Date Type Department Care Team Description 03/31/2025 8:00 AM CDT Office Visit [facility] [address] [place] [address] Mumtaz Yusuf [facility] 02/17/2025 Travel 02/17/2025 8:00 AM CDT Office Visit [facility] [address] [place] [address] Salma Perales, ERIBERTO Dental caries, unspecified (Primary Dx) 01/20/2025 Travel 01/20/2025 8:00 AM INVESTIGATOR CLAIMS Office Visit [facility] [address] [place] [address] Salma Perales, ERIBERTO Dental caries, unspecified (Primary Dx) 01/06/2025 Travel 12/24/2024 Travel 12/24/2024 8:00 AM INVESTIGATOR CLAIMS Office Visit [facility] [address] [place] [address] Mumtaz Yusuf [facility] 12/23/2024 Travel 12/23/2024 8:00 AM INVESTIGATOR CLAIMS Office Visit [facility] [address] [place] [address] Salma Perales DDS 12/14/2024 Travel 12/14/2024 8:00 AM INVESTIGATOR CLAIMS Office Visit [facility] [address] [place] [address] Gideon Gutierrez, DDS 12/08/2024 8:00 AM INVESTIGATOR CLAIMS Office Visit [facility] [address] [place] [address] Salma Perales DDS Dental caries, unspecified (Primary Dx) 11/25/2024 Travel 11/25/2024 12:45 PM INVESTIGATOR CLAIMS Office Visit [facility] [address] [place] [address] Fátima Lees, DDS 11/16/2024 8:00 AM INVESTIGATOR CLAIMS Office Visit [facility] [address] [place] [address] Salma Perales, ANASTACIAS 11/02/2024 Travel 11/02/2024 8:00 AM INVESTIGATOR CLAIMS Office Visit [facility] [address] [place] [address] Salma Perales DDS Dental caries, unspecified (Primary Dx) 10/07/2024 Travel 10/07/2024 8:00 AM INVESTIGATOR CLAIMS Office Visit [facility] [address] [place] [address] Salma Perales DDS Dental caries, unspecified (Primary [...] 90.7 kg (200 lb) 11/25/2024 1:52 PM INVESTIGATOR CLAIMS Height 177.8 cm (5' 10) 11/25/2024 1:52 PM INVESTIGATOR CLAIMS Body Mass Index 28.7 11/25/2024 1:52 PM INVESTIGATOR CLAIMS Plan of Treatment Not on file Procedures [...] THREE SURFACES, POSTERIOR Routine 01/20/2025 8:00 AM INVESTIGATOR CLAIMS 5 DO RESIN-BASED COMPOSITE - TWO SURFACES, POSTERIOR Routine 01/20/2025 8:00 AM INVESTIGATOR CLAIMS Dental caries, unspecified 4 MOD RESIN-BASED COMPOSITE - THREE SURFACES, POSTERIOR Routine 01/20/2025 8:00 AM INVESTIGATOR CLAIMS Dental caries, unspecified ADJUNCTIVE PRE-DIAGNOSTIC TEST THAT AIDS IN DETECTION OF MUCOSAL ABNORMALITIES Routine 12/24/2024 8:00 AM INVESTIGATOR CLAIMS UL ANTIBACT IRR/QUAD Routine 12/24/2024 8:00 AM INVESTIGATOR CLAIMS 9 UL PERIODONTAL SCALING AND ROOT PLANING - ONE TO THREE TEETH PER QUADRANT Routine 12/24/2024 8:00 AM INVESTIGATOR CLAIMS LL ANTIBACT IRR/QUAD Routine 12/24/2024 8:00 AM INVESTIGATOR CLAIMS 19 LL PERIODONTAL SCALING AND ROOT PLANING - ONE TO THREE TEETH PER QUADRANT Routine 12/24/2024 8:00 AM INVESTIGATOR CLAIMS UR ANTIBACT IRR/QUAD Routine 12/24/2024 8:00 AM INVESTIGATOR CLAIMS 7,3 UR PERIODONTAL SCALING AND ROOT PLANING - ONE TO THREE TEETH PER QUADRANT Routine 12/24/2024 8:00 AM INVESTIGATOR CLAIMS LR ORAL HYGIENE INSTRUCTIONS Routine 12/24/2024 8:00 AM INVESTIGATOR CLAIMS LR PERIODONTAL SCALING AND ROOT PLANING - FOUR OR MORE TEETH PER QUADRANT Routine 12/24/2024 8:00 AM INVESTIGATOR CLAIMS LR ANTIBACT IRR/QUAD Routine 12/24/2024 8:00 AM INVESTIGATOR CLAIMS 6 CEMENT CROWN Routine 12/23/2024 8:00 AM INVESTIGATOR CLAIMS NC X-RAY Routine 12/23/2024 8:00 AM INVESTIGATOR CLAIMS NC X-RAY Routine 12/23/2024 8:00 AM INVESTIGATOR CLAIMS 9 CEMENT CROWN Routine 12/23/2024 8:00 AM INVESTIGATOR CLAIMS 8 CEMENT CROWN Routine 12/23/2024 8:00 AM INVESTIGATOR CLAIMS 7 CEMENT CROWN Routine 12/23/2024 8:00 AM INVESTIGATOR CLAIMS RECEMENT TEMPORARY Routine 12/14/2024 8: 00 AM INVESTIGATOR CLAIMS 6 CROWN PFM POST Routine 12/08/2024 8:00 AM INVESTIGATOR CLAIMS Dental caries, unspecified 9 CROWN PFM POST Routine 12/08/2024 8:00 AM INVESTIGATOR CLAIMS Dental caries, unspecified 8 CROWN PFM POST Routine 12/08/2024 8:00 AM INVESTIGATOR CLAIMS Dental caries, unspecified 7 CROWN PFM POST Routine 12/08/2024 8:00 AM INVESTIGATOR CLAIMS Dental caries, unspecified OS CONSULT Routine 11/25/2024 12:45 PM INVESTIGATOR CLAIMS 2 EXTRACTION, ERUPTED TOOTH REQUIRING REMOVAL OF BONE AND/OR SECTIONING OF TOOTH Routine 11/25/2024 12:45 PM INVESTIGATOR CLAIMS COLLECTION AND APPLICATION OF AUTOLOGOUS BLOOD CONCENTRATE PRODUCT Routine 11/25/2024 12:45 PM INVESTIGATOR CLAIMS 2 UR PRIMARY CLOSURE OF A SINUS PERFORATION Routine 11/25/2024 12:45 PM INVESTIGATOR CLAIMS NC X-RAY Routine 11/16/2024 8:00 AM INVESTIGATOR CLAIMS NC X-RAY Routine 11/16/2024 8:00 AM INVESTIGATOR CLAIMS 11 CEMENT CROWN Routine 11/16/2024 8:00 AM INVESTIGATOR CLAIMS 10 CEMENT CROWN Routine 11/16/2024 8:00 AM INVESTIGATOR CLAIMS 11 CORE BUILDUP, INCLUDING ANY PINS WHEN REQUIRED Routine 11/02/2024 8:00 AM INVESTIGATOR CLAIMS 10 CORE BUILDUP, INCLUDING ANY PINS WHEN REQUIRED Routine 11/02/2024 8:00 AM INVESTIGATOR CLAIMS 11 CROWN PFM POST Routine 11/02/2024 8:0 0 AM INVESTIGATOR CLAIMS Dental caries, unspecified 10 CROWN PFM POST Routine 11/02/2024 8:0 0 AM INVESTIGATOR CLAIMS Dental caries, unspecified INTRAORAL PHOTO Routine 10/07/2024 8:00 AM INVESTIGATOR CLAIMS INTRAORAL PHOTO Routine 10/07/2024 8:00 AM INVESTIGATOR CLAIMS INTRAORAL PHOTO Routine 10/07/2024 8:00 AM INVESTIGATOR CLAIMS INTRAORAL PHOTO Routine 10/07/2024 8:00 AM INVESTIGATOR CLAIMS ADDITIONAL X-RAY Routine 10/07/2024 8:00 AM INVESTIGATOR CLAIMS ADDITIONAL X-RAY Routine 10/07/2024 8:00 AM INVESTIGATOR CLAIMS ADDITIONAL X-RAY Routine 10/07/2024 8:00 AM INVESTIGATOR CLAIMS ADDITIONAL X-RAY Routine 10/07/2024 8:00 AM INVESTIGATOR CLAIMS ADDITIONAL X-RAY Routine 10/07/2024 8:00 AM INVESTIGATOR CLAIMS SINGLE X-RAY Routine 10/07/2024 8:00 AM INVESTIGATOR CLAIMS BITEWINGS - FOUR RADIOGRAPHIC IMAGES Routine 10/07/2024 8:00 AM INVESTIGATOR CLAIMS [facility]AM CT CAPTURE AND INTERPRETATION WITH FIELD OF VIEW OF BOTH JAWS; WITH OR WITHOUT CRANIUM Routine 10/07/2024 8:00 AM INVESTIGATOR CLAIMS COMPREHENSIVE ORAL EVALUATION - NEW OR ESTABLISHED PATIENT Routine 10/07/2024 8:00 AM INVESTIGATOR CLAIMS Encounter for dental examination and cleaning without abnormal findings 30 B AMALGAM FILLING Routine 10/07/2024 12:00 AM INVESTIGATOR CLAIMS 28 B AMALGAM FILLING Routine 10/07/2024 12:00 AM INVESTIGATOR CLAIMS 19 DOL AMALGAM FILLING Routine 4 12:00 AM INVESTIGATOR CLAIMS 19 B COMPOSITE FILLING Routine 4 12:00 AM INVESTIGATOR CLAIMS 18 B AMALGAM FILLING Routine 10/07/2024 12:00 AM INVESTIGATOR CLAIMS 13 MOD AMALGAM FILLING Routine 4 12:00 AM INVESTIGATOR CLAIMS 12 B COMPOSITE FILLING Routine 4 12:00 AM INVESTIGATOR CLAIMS 12 MOD AMALGAM FILLING Routine 4 12:00 AM INVESTIGATOR CLAIMS 11 MIDF COMPOSITE FILLING Routine 2023 12:00 AM INVESTIGATOR CLAIMS 10 MDF COMPOSITE FILLING Routine 12:00 AM INVESTIGATOR CLAIMS 9 MDF COMPOSITE FILLING Routine 10/07/20 24 12:00 AM INVESTIGATOR CLAIMS 8 MDF COMPOSITE FILLING Routine 10/07/20 24 12:00 AM INVESTIGATOR CLAIMS 7 MDF COMPOSITE FILLING Routine 10/07/20 12:00 AM INVESTIGATOR CLAIMS 5 B COMPOSITE FILLING Routine 10/07/2024 12:00 AM INVESTIGATOR CLAIMS 3 DO AMALGAM FILLING Routine 10/07/2024 12:00 AM INVESTIGATOR CLAIMS 6 MIDF COMPOSITE FILLING Routine 12:00 AM INVESTIGATOR CLAIMS Visit Diagnoses Diagnosis Start Date Dental caries, unspecified 10/07/2024 Encounter for dental examination and cleaning without abnormal findings 10/07/2024 Dental caries, unspecified 11/02/2024 Dental caries, unspecified 12/08/2024 Dental caries, unspecified 01/20/2025 Dental caries, unspecified 02/17/2025 Insurance [facility]
== END 2025-09-21 14:52 | disposition left against medical advice (07) ==
LOC: ANHED 14:37
PROVIDERS: PCP Nurse Practitioner
DX: Z53.21 Procedure and treatment not carried out due to patient leaving prior to being seen by health care provider (principal)
CPT/HCPCS: 99199

== ENCOUNTER 2025-09-27 09:56 | Emergency (ER) | payer BC, MEDICAID, SELFPAY ==
--- OUTSIDE RECORDS SUMMARY | 2025-05-17 10:00 | XMS_ITS ---
Author Organization [facility] Address [address] [place] [address] Care Team Providers Care Load Builder Name Role Phone Venus Meade Primary Care Provider REASON FOR VISIT 4 week FU Social History Sex Assigned At : Social History Observation Description Sex Assigned At Male Encounters Encounter Location Date Provider Diagnosis [address] [place] [address] 05/17/2025 Venus Meade Plan Of Treatment Next Appt Details Provider Name:Venus portillo, 09/28/2025 03:00:00 PM, [address] [facility], [place], [address], Progress Notes * Felipe ORTIZDOB:1985 ( 40 yo M)Acc No.[id number]:05/17/2025 UNLOCKED PROGRESS NOTE Patient: Felipe CRUZ Provider: ROBERT Malave, REAL ESTATE AGENCY LICENSEE, WRAPPER SORTER-C :1985 A ge:39 Y S ex:Male Date:05/17/2025 Address:[address] [id number] Subjective: * Chief Complaints: * 1 . 4 week FU. * Medical History: Objective: * Vitals: Assessment: Plan: * Treatment: * * Electronic signature of Reshma Meade , [id number] on 09/27/2025 at 11:15 AM KIESELGUHR REGENERATOR OPERATOR Sign off status: Pending * Provider: Sam Maede MSN, REAL ESTATE AGENCY LICENSEE, WRAPPER SORTER-C Date: 0 05/17/2025 Generated for Tash pichardo/Edwin/Ryley on: 1 11/27/2024 11:15 AM KIESELGUHR REGENERATOR OPERATOR
--- OUTSIDE RECORDS SUMMARY | 2025-06-14 06:00 | XMS_ITS ---
Author Organization [facility] Address [address] [place] [address] Care Team Providers Care Assistant Center Manager Name Role Phone Venus Meade Primary Care Provider REASON FOR VISIT Needs to R/S - mlr missed last appt- 4 week f u Social History Sex Assigned At : Social History Observation Description Sex Assigned At Male Encounters Encounter Location Date Provider Diagnosis [address] [place] [address] 06/14/2025 Venus Meade Plan Of Treatment Next Appt Details Provider Name:Venus portillo, 09/28/2025 03:00:00 PM, [address] [facility], [place], [address], Progress Notes * Felipe ORTIZDOB:1985 ( 40 yo M)Acc No.[id number]:06/14/2025 UNLOCKED PROGRESS NOTE Patient: Felipe CRUZ Provider: Sam Meade, MSN, RETAIL WIRELESS SALES REPRESENTATIVE, HISTOLOGY SUPERVISOR-C :1985 A ge:39 Y S ex:Male Date:06/14/2025 Address:[address] [facility] Subjective: * Chief Complaints: * 1 . Needs to R/S - mlr missed last appt- 4 week f u. * Medical History: Objective: * Vitals: Assessment: Plan: * Treatment: * * Electronic signature of Reshma Meade , [id number] on 09/27/2025 at 11:14 AM GATEHOUSE ATTENDANT Sign off status: Pending * Provider: Sam Meade, MSN, RETAIL WIRELESS SALES REPRESENTATIVE, HISTOLOGY SUPERVISOR-C Date: 0 06/14/2025 Generated for Tash pichardo/Edwin/Ryley on: 11/27/2024 11:14 AM GATEHOUSE ATTENDANT
--- OUTSIDE RECORDS SUMMARY | 2025-08-29 07:40 | XMS_ITS ---
Author Organization [facility] Address [address] [place] [address] Care Team Providers Care Devulcanizer Operator Name Role Phone Venus Meade Primary Care Provider [phone] REASON FOR VISIT 3 Week F/U Social History Sex Assigned At : Social History Observation Description Sex Assigned At Male Encounters Encounter Location Date Provider Diagnosis [address] [place] [address] 08/29/2025 Venus Meade Plan Of Treatment Next Appt Details Provider Name:Venus portillo, 09/28/2025 03:00:00 PM, [address] [place] [address] , [place], [address], Progress Notes * Felipe ORTIZDOB:1985 ( 40 yo M)Acc No.[id number]:08/29/2025 UNLOCKED PROGRESS NOTE Patient: Felipe CRUZ Provider: ROBERT Malave, ENGINEER SERGEANT, HYGIENE COORDINATOR-C :1985 A ge:40 Y S ex:Male Date:08/29/2025 Address:[address] [facility] Subjective: * Chief Complaints: * 1 . 3 Week F/U. * Medical History: Objective: * Vitals: Assessment: Plan: * Treatment: * * Electronic signature of Reshma Meade , [id number] on 09/27/2025 at 11:15 AM ASSISTANT TENNIS PROFESSIONAL Sign off status: Pending * Provider: Sam Meade MSN, ENGINEER SERGEANT, HYGIENE COORDINATOR-C Date: Generated for Tash pichardo/Edwin/Trellsmitting on: 11/27/2024 11:15 AM ASSISTANT TENNIS PROFESSIONAL
--- OUTSIDE RECORDS SUMMARY | 2025-09-26 15:00 | XMS_ITS | Encounter Summary ---
Author Organization [facility] Address [facility] [place] [address] Care Team Providers Care Website Programmer Name Role Phone Cony Blake NP Primary Care Provider [phone] Reason for Referral * Sleep Lab (Routine) - New Request Specialty Diagnoses / Procedures Referred By Shania leo Referred To Contact Diagnoses At risk for obstructive sleep apnea Procedures Home Sleep Study - WatchPat ([id number]) Cony Blake NP [address] [place] [address] Phone: tel: fax: Referral ID Status Reason Start Date Expiration Date V isits Requested Visits Authorized [id number] New Request 09/26/2025 09/26/2026 1 1 SER * Consultation (Urgent) - New Request Specialty Diagnoses / Procedures Referred By Shania leo Referred To Contact Diagnoses Erythrocytosis Procedures OFFICE/OUTPATIENT NEW LOW MDM 30-44 MINUTES OFFICE/OUTPT VISIT,NEW,LEVL IV OFFICE/OUTPT VISIT,NEW,LEVL V OFFICE/OUTPT VISIT,EST,LEVL III OFFICE/OUTPT VISIT,EST,LEVL IV OFFICE/OUTPT VISIT,EST,LEVL V Cony Blake NP [address] [place] [address] Phone: tel: fax: Referral ID Status Reason Start Date Expiration Date Visits Requested Visits Authorized [id number] New Request Specialty Services 09/26/2026 1 1 Scheduling Instructions Pt wants to stay close to home. I would recommend Dr. Beckham office. SER * Consultation (Urgent) - New Request Specialty Diagnoses / Procedures Referred By Shania leo Referred To Contact NEPHROLOGY Diagnoses Proteinuria, unspecified type Hematuria, unspecified type CKD (chronic kidney disease) stage 2, GFR 60-89 ml/min Procedures OFFICE/OUTPATIENT NEW LOW MDM 30-44 MINUTES OFFICE/OUTPT VISIT,NEW,LEVL IV OFFICE/OUTPT VISIT,NEW,LEVL V OFFICE/OUTPT VISIT,EST,LEVL III OFFICE/OUTPT VISIT,EST,LEVL IV OFFICE/OUTPT VISIT,EST,LEVL V Cony Blake NP [address] [place] [address] Phone: tel: fax: Referral ID Status Reason Start Date Expiration Date Visits Requested Visits Authorized [id number] New Request Specialty Services 09/26/2026 1 1 Scheduling Instructions Lost to follow up. Was following with Dr.Kanungo Turner-nephrology SER Reason for Visit * Reason Comments TCM Encounter Details Date Type Department Care Team (Late st Contact Info) Description 09/26/2025 3:00 PM FLOSSER Office Visit [facility] - [place] [address] [facility] [address] [place] [id number] Cony Blake NP [address] [place] [phone] TCM Social History Tobacco Use Types Packs/Day Years Used Date Smoking Tobacco: Every Day Cigarettes 0.5 10 Passive Smoke Exposure: Past Smokeless Tobacco: Former Chew Tobacco Cessation:Ready to Q uit: No; Counseling Given: Yes Alcohol Use Standard Drinks/Week Comments Yes 0 (1 standard drink = 0.6 oz pure alcohol) every other days, takes a few shots PHQ-2 Answer Date Recorded Patient Health Questionnaire-2 Score 2 12/31/2024 Sex and Gender Information Value Date Recorded Sex Assigned at Male 12/31/2024 8:40 AM FLOSSER Legal Sex Male 8:06 PM CDT Gender Identity Male 12/31/2024 8:40 AM FLOSSER Sexual Orientation Straight 12/31/2024 8: 40 AM FLOSSER documented as of this encounter Last Filed Vital Signs Vital Sign Reading Time Taken Comments Blood Pressure 147/94 09/26/2025 3:06 PM FLOSSER Pulse 86 09/26/2025 3:06 PM FLOSSER Temperature 36.9 C (98.5 F) 09/26/2025 3:06 PM FLOSSER Respiratory Rate 16 09/26/2025 3:06 PM FLOSSER Oxygen Saturation 100% 09/26/2025 3:06 PM FLOSSER Inhaled Oxygen Concentration - - Weight 95.3 kg (210 lb) 09/26/2025 3:06 PM FLOSSER Height 177.8 cm (5' 10) 09/26/2025 3:06 PM FLOSSER Body Mass Index 30.13 09/26/2025 3:06 PM FLOSSER documented in this encounter Plan of Treatment Upcoming Encounters Date Type Department Care Team (Late st Contact Info) Description 10/11/2025 3:00 PM FLOSSER Office Visit [facility] - [place] [address] [facility] [address] [place] [address] Cony Blake, CUT AND PRINT MACHINE OPERATOR [address] [place] [address] Scheduled Orders Name Type Priority Associated Diagnoses Orde r Schedule Home Sleep Study - WatchPat ([id number]) Sleep Center Routine At risk for obstructive sleep apnea Expected: 09/26/2025, Expires: 09/26/2026 Scheduled Referrals Name Type Priority Associated Diagnoses Orde r Schedule Ambulatory referral to Nephrology (OTHER) Referral Routine Proteinuria, unspecified type Hematuria, unspecified type CKD (chronic kidney disease) stage 2, GFR 60-89 ml/min Ordered: 09/26/2025 Ambulatory referral to Hematology Referral Routine Erythrocytosis Ordered: 09/26/2025 documented as of this encounter Visit Diagnoses Diagnosis Uncontrolled hypertension- Primary Unspecified essential hypertension Proteinuria, unspecified type Hematuria, unspecified type CKD (chronic kidney disease) stage 2, GFR 60-89 ml/min Chronic kidney disease, Stage II (mild) Erythrocytosis Polycythemia, secondary At risk for obstructive sleep apnea documented in this encounter Additional Health Concerns Assessment Noted Time PHQ-9 Depression Total Score: 4 12/31/19 25 9:03 AM FLOSSER documented as of this encounter Care Teams Website Programmer Relationship Specialty Start Date End Date Cony Blake NP [address] [place] [address] PCP - General NURSE PRACTITIONER 06/20/23 documented as of this encounter
[2025-09-27] VITALS (8 sets, daily range): BP systolic 147–170; BP diastolic 103–126; PULSE 71–85; RESP 13–19; O2SAT 98–100
--- NOTE | ~2025-09-27 | CT_ITS ---
EXAM/PROCEDURE: CT abdomen pelvis wo con HISTORY: hematuria COMPARISON: April 15, 2021 TECHNIQUE: Noncontrast CT of the abdomen and pelvis performed. FINDINGS: Small hiatal hernia. Mild wall thickening of the distal esophagus. Mild nodular atelectatic or fibrotic changes in the left lung base. Air cyst formation in the left lung base stable. Mild fibrotic appearing changes in the right lung base. Heart size normal with no large pericardial effusion. No hydroureteronephrosis. No obstructing ureteral stones. No urolithiasis seen. Cystic-appearing foci incompletely evaluated in both kidneys, along with 8 mm hyperattenuating focus lower pole left kidney image 70 series 3. No AAA or grossly inflamed appendix. Gallbladder pancreas spleen stomach and adrenal glands appear stable for technique. No bulky lymphadenopathy or masses. Moderately severe diverticular disease in the sigmoid colon with no gross acute diverticulitis. Mild wall thickening may be present in the sigmoid colon seen on images 151 through 156 of series 3. No free air free fluid or pneumatosis. No abscess seen. Urinary bladder appears normal for technique. Prostate mild to moderately enlarged. Small fat-containing inguinal hernias. Mild degenerative changes of the bones which otherwise appear intact. IMPRESSION: 1. Directed noncontrast CT of the abdomen and pelvis demonstrating no focal acute process to explain source of hematuria. Incompletely evaluated lesions of the kidneys as above; correlate with renal ultrasound or for optimal evaluation of abdominal MRI. 2. Moderately advanced diverticular disease in the sigmoid colon. Mild sigmoidal wall thickening may be present in this area as well. Reviewed, dictated and finalized at location A. LAB NURSE IMPRESSION: 1. Directed noncontrast CT of the abdomen and pelvis demonstrating no focal acu te process to explain source of hematuria. Incompletely evaluated lesions of th e kidneys as above; correlate with renal ultrasound or for optimal evaluation o f abdominal MRI. 2. Moderately advanced diverticular disease in the sigmoid colon. Mild sigmoida l wall thickening may be present in this area as well.
--- NOTE | ~2025-09-27 | XR_ITS ---
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 Technique: 2 views obtained. Findings: The lungs are clear, no effusion. No pneumothorax. Heart is normal size. Mediastinal and hilar contours are within normal limits. Bony thorax no acute abnormality. Impression: No acute cardiopulmonary abnormality. Reviewed, dictated and finalized at location P. D STACKER Impression: No acute cardiopulmonary abnormality.
--- NOTE | 2025-09-27 10:06 | ECG_ITS ---
Test Date: 2025-09-27 10:12:22 Measurements Intervals [place] Rate: 74 P: 63 ID: [id number] QRS: -14 QRSD: 92 T: 37 QT: 366 QTc: 406 Interpretive Statements SINUS RHYTHM No previous ECG available for comparison Electronically Signed On 09-27-2025 18:01:56 FEATURES REPORTER by Vic Rich M.D.
[2025-09-27 10:31] LABS: Hematocrit 49.2 % (42.0-52.0); Hemoglobin 16.9 g/dL (14.0-18.0); Immature Granulocyte Percent A 1.0 % (0-0.5); Lymphocytes Absolute Auto 2.04 K/mm3 (0.9-3.2); Mean Corpuscular HGB Conc 34.3 g/dl (32-36); Mean Corpuscular Hemoglobin 31.7 pg (26-34); Mean Corpuscular Volume 92.3 fl (80-100); Nucleated Red Blood Cells Absolute Auto 0.000 K/mm3 (0.0-0.012); Nucleated Red Blood Cells Perc 0.0 % (0.0-0.2); Platelet Count Result 297 k/mm3 (150-375); Red Blood Count 5.33 M/mm3 (4.6-6.20); White Blood Count 8.2 K/mm3 (4.5-10.0)
--- NOTE | 2025-09-27 10:41 | ED.GENADULT ---
HPI - General Adult General Chief complaint: Recheck/Abnormal Lab/Rx <ZACH Wren - Last Filed: 09/27/25 14:48> Stated complaint: HTN <ZACH Wren - Last Filed: 09/27/25 14:48> Time Seen by Provider: 09/27/25 10:23 <ZACH Wren - Last Filed: 09/27/25 14:48> History of Present Illness HPI narrative: 40-year-old male presenting with complaints of high blood pressure. Patient states around 7 this morning he began to feel dizzy as if he was going to black out and reports he is having trouble thinking. Denies chest pain/shortness of breath, abdominal pain, headache, diaphoresis, or any history of trauma. He is currently undergoing treatment for hypertension. Smokes about a half pack per day ?for a long time?. <ZACH Wren - Last Filed: 09/27/25 14:48> Related Data Home medications: Home Medications ?Medication ?Instructions ?Recorded ?Confirmed ?Last Taken ?Type lisinopril 10 mg tablet 10 mg PO DAILY 08/25/23 08/11/25 Unknown History amlodipine 10 mg tablet 10 mg PO DAILY 08/30/24 08/11/25 Unknown History vilazodone 20 mg tablet (Viibryd) 20 mg PO DAILY 08/30/24 08/11/25 Unknown History <ZACH Wren - Last Filed: 09/27/25 14:48> Allergies/adverse reactions: Allergies Allergy/AdvReac Type Severity Reaction Status Date / Time hydrocodone Allergy Rash Verified 08/11/25 13:47 aspirin AdvReac Other Verified 08/11/25 13:47 <ZACH Wren - Last Filed: 09/27/25 14:48> Review of Systems Review of Systems: All systems reviewed & are unremarkable except as noted in HPI and below <ZACH Wren - Last Filed: 09/27/25 14:48> PMFSH Past Medical History Medical History: Medical History Nausea and vomiting in adult Abdominal pain Clostridium difficile colitis Smoker Ganglion cyst Left wrist Spontaneous pneumothorax <ZACH Wren - Last Filed: 09/27/25 14:48> Surgical History Surgical History: Surgical History History of partial colectomy (~2017) Due to hemorrhoid surgery with complications resulting in severe blood loss and blood transfusion 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 His ex-girlfriend recently moved nearby and they have a 9-year-old daughter in common. 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 He drinks a 12 pack of beer a week. He has smoked a pack of cigarettes per day since the age of 20. He will occasionally snort cocaine. He will occasionally smoke marijuana. He denies any IV drug use. He does not have a primary care physician. He does not have advanced directives in place. Smoking packs per day: 1 Smoking cigarettes per day: 20.0 Years smoked: 15 Smoking pack-years: 15.00 Tobacco type: cigarettes Alcohol intake: current Drinks per week: 12 Substance use: former Substance use type: former substance user Do You Feel Safe in your Home?: Yes Lack of Transportation: No Lack of Food: Never True Current Housing: I Have Housing Concerned About Future Housing: No Difficulty Paying Gas/Electric Bills: No Difficulty Paying for Meds: No Currently Unemployed: No Education: Trade/Vocational Certificate Difficulty w/ Childcare or Family Care: No Living arrangements: with family Occupation/Education: occupation Gender identity (if verbalized by the patient): Male Sexual Orientation (if Verbalized by the Patient): Straight or Heterosexual Spiritual care concerns: No <ZACH Wren - Last Filed: 09/27/25 14:48> Exam Narrative: GENERAL: Anxious-appearing, well-nourished, and in mild distress. HEAD: Normocephalic, atraumatic. EYES: PERRLA and EOMI. ENT: Nares clear, no rhinorrhea or epistaxis. Mucous membranes moist. Oropharynx without tonsillar hypertrophy exudate or other lesions. Bilateral TMs pearly finley non-bulging NECK: Supple. No adenopathy or masses. No carotid bruits or JVD CHEST: Clear to auscultation. No respiratory distress. No wheezes rales or rhonchi HEART: Regular rate and rhythm. No murmur heard. Normal peripheral pulses. ABDOMEN: Soft, nontender, nondistended, normal active bowel sounds. EXTREMITIES: Normal range of motion. No edema. SKIN: Warm, dry, no rash. NEURO: No focal deficits. Alert and oriented x3. PSYCH: Anxious. Normal affect <ZACH Wren - Last Filed: 09/27/25 14:48> Course LINEWORKER/PA Physician Supervision This visit was performed by both a physician and an APC. I performed all aspects of the MDM as documented. <Jason Berumen MD - Last Filed: 09/27/25 20:10> Vital Signs Vital signs: Vital Signs Pulse Rate 85 09/27/25 09:53 Respiratory Rate 19 09/27/25 09:53 Blood Pressure 170/114 H 09/27/25 09:53 Pulse Oximetry 100 09/27/25 09:53 Oxygen Delivery Room Air 09/27/25 09:53 Pulse Rate 78 09/27/25 12:30 Respiratory Rate 16 09/27/25 12:30 Blood Pressure 150/103 H 09/27/25 12:30 Pulse Oximetry 98 09/27/25 12:30 Oxygen Delivery Room Air 09/27/25 09:53 <ZACH Wren - Last Filed: 09/27/25 14:48> Vital Signs Pulse Rate 85 09/27/25 09:53 Respiratory Rate 19 09/27/25 09:53 Blood Pressure 170/114 H 09/27/25 09:53 Pulse Oximetry 100 09/27/25 09:53 Oxygen Delivery Room Air 09/27/25 09:53 Pulse Rate 78 11/11/25 12:30 Respiratory Rate 16 09/27/25 12:30 Blood Pressure 150/103 H 09/27/25 12:30 Pulse Oximetry 98 09/27/25 12:30 Oxygen Delivery Room Air 09/27/25 09:53 <Jason Berumen MD - Last Filed: 09/27/25 20:10> Medical Decision Making MDM Narrative Medical decision making narrative: 40-year-old male presenting with complaints of high blood pressure. Patient states around 7 this morning he began to feel dizzy as if he was going to black out and reports he is having trouble thinking. Denies chest pain/shortness of breath, abdominal pain, headache, diaphoresis, or any history of trauma. He is currently undergoing treatment for hypertension. Smokes about a half pack per day ?for a long time?. Upon my initial assessment patient is hypertensive but maintains no signs of end-organ damage and is dizzy. Patient's dizziness is felt to be likely peripheral vertigo as the patient's symptoms were sudden, severe, and worsened by certain positions. Otherwise normal neurologic examinations. Patient's dizziness improved prior to d/c without medical therapy. Gait is stable and there are no cerebral or cerebellar deficits on exam. Risk factors for central causes of vertigo and reasons to return to the ED reviewed, including persistent symptoms, focal weakness, slurred speech, confusion, or vision changes. Patient felt to be a reasonable candidate for continued outpatient management and risks are felt to outweigh benefits for further imaging studies at this time. EKG demonstrated no acute changes. Chest x-ray demonstrated no acute cardiopulmonary abnormalities. CMP did demonstrate mild creatinine changes. UA demonstrated mild hematuria. Directed noncontrast CT of the abdomen and pelvis demonstrating no focal acute process to explain source of hematuria. Incompletely evaluated lesions of the kidneys; correlate with renal ultrasound or for optimal evaluation of abdominal MRI. Moderately advanced diverticular disease in the sigmoid colon. Mild sigmoidal wall thickening may be present in this area as well. All results discussed with patient and patient verbalized ongoing kidney issues being discussed with his PCP for further workup. Re-assessment patient states he is no longer dizzy and would like to go home. Remains hypertensive without signs of end-organ damage. Spoke to patient about reasons to return and advised close bp monitoring and follow-up with pcp. <ZACH Wren - Last Filed: 09/27/25 14:48> 40-year-old male presenting with complaints of high blood pressure. Patient states around 7 this morning he began to feel dizzy as if he was going to black out and reports he is having trouble thinking. Denies chest pain/shortness of breath, abdominal pain, headache, diaphoresis, or any history of trauma. He is currently undergoing treatment for hypertension. Smokes about a half pack per day ?for a long time?. Upon my initial assessment patient is hypertensive but maintains no signs of end-organ damage and is dizzy. Patient's dizziness is felt to be likely peripheral vertigo as the patient's symptoms were sudden, severe, and worsened by certain positions. Otherwise normal neurologic examinations. Patient's dizziness improved prior to d/c without medical therapy. Gait is stable and there are no cerebral or cerebellar deficits on exam. Risk factors for central causes of vertigo and reasons to return to the ED reviewed, including persistent symptoms, focal weakness, slurred speech, confusion, or vision changes. Patient felt to be a reasonable candidate for continued outpatient management and risks are felt to outweigh benefits for further imaging studies at this time. EKG demonstrated no acute changes. Chest x-ray demonstrated no acute cardiopulmonary abnormalities. CMP did demonstrate mild creatinine changes. UA demonstrated mild hematuria. Directed noncontrast CT of the abdomen and pelvis demonstrating no focal acute process to explain source of hematuria. Incompletely evaluated lesions of the kidneys; correlate with renal ultrasound or for optimal evaluation of abdominal MRI. Moderately advanced diverticular disease in the sigmoid colon. Mild sigmoidal wall thickening may be present in this area as well. All results discussed with patient and patient verbalized ongoing kidney issues being discussed with his PCP for further workup. Re-assessment patient states he is no longer dizzy and would like to go home. Remains hypertensive without signs of end-organ damage. Spoke to patient about reasons to return and advised close bp monitoring and follow-up with pcp. This visit was performed by both a physician and an APC. I performed all aspects of the MDM as documented. <Jason Berumen MD - Last Filed: 09/27/25 20:10> Medical Records Medical records reviewed: Yes I reviewed the external patient's medical records. <ZACH Wren - Last Filed: 09/27/25 14:48> Vital Signs Vital Signs: Vital Signs Pulse Rate 85 09/27/25 09:53 Respiratory Rate 19 09/27/25 09:53 Blood Pressure 170/114 H 09/27/25 09:53 Pulse Oximetry 100 09/27/25 09:53 Oxygen Delivery Room Air 09/27/25 09:53 Pulse Rate 78 09/27/25 12:30 Respiratory Rate 16 09/27/25 12:30 Blood Pressure 150/103 H 09/27/25 12:30 Pulse Oximetry 98 09/27/25 12:30 Oxygen Delivery Room Air 09/27/25 09:53 <ZACH Wren - Last Filed: 09/27/25 14:48> Vital Signs Pulse Rate 85 09/27/25 09:53 Respiratory Rate 19 09/27/25 09:53 Blood Pressure 170/114 H 09/27/25 09:53 Pulse Oximetry 100 09/27/25 09:53 Oxygen Delivery Room Air 09/27/25 09:53 Pulse Rate 78 09/27/25 12:30 Respiratory Rate 16 09/27/25 12:30 Blood Pressure 150/103 H 09/27/25 12:30 Pulse Oximetry 98 09/27/25 12:30 Oxygen Delivery Room Air 09/27/25 09:53 <Jason Berumen MD - Last Filed: 09/27/25 20:10> Lab Data Lab results reviewed: Yes I reviewed the patient's lab results. <ZACH Wren - Last Filed: 09/27/25 14:48> Result diagrams: 09/27/25 10:21 09/27/25 10:21 <ZACH Wren - Last Filed: 09/27/25 14:48> Labs: Lab Results 09/27/25 09/27/25 Range/Units 10:21 11:08 WBC 8.2 (4.5-10.0) K/mm3 RBC 5.33 (4.6-6.20) M/mm3 Hgb 16.9 (14.0-18.0) g/dL Hct 49.2 (42.0-52.0) % MCV 92.3 (80-100) fl MCH 31.7 (26-34) pg MCHC 34.3 (32-36) g/dl RDW 12.6 (11.5-14.5) % Plt Count 297 (150-375) k/mm3 MPV 10.0 (7.4-10.4) fl Immature Gran % (Auto) 1.0 H (0-0.5) % Neut % (Auto) 60.2 (45.5-73.1) % Lymph % (Auto) 24.9 (18.3-44.2) % [place] % (Auto) 10.6 H (2.6-8.5) % Eos % (Auto) 2.1 (0-4.4) % Baso % (Auto) 1.2 (0.2-1.2) % Lymph # (Auto) 2.04 (0.9-3.2) K/mm3 [place] # (Auto) 0.9 H (0.1-0.6) K/mm3 Eos # (Auto) 0.2 (0-0.3) K/mm3 Baso # (Auto) 0.1 (0.0-0.1) K/mm3 Abs Immat Gran (auto) 0.08 H (0.00-0.031) K/mm3 Absolute Neuts (auto) 4.9 (1.3-6.7) K/mm3 Absolute Nucleated RBC 0.000 (0.0-0.012) K/mm3 Nucleated RBC % 0.0 (0.0-0.2) % Sodium 135 L (137-145) mmol/L Potassium 4.2 (3.4-5.0) mmol/L Chloride 105 (98-107) mmol/L Carbon Dioxide 25 (22-30) mmol/L Anion Gap 5 (4-12) mmol/L BUN 22 H (9-20) mg/dL Creatinine 1.35 H (0.7-1.3) mg/dL Estim Creat Clear Calc 76 ml/min Estimated GFR 59 (59 - ) Glucose 95 (65-110) mg/dL Calcium 8.9 (8.4-10.2) mg/dL Total Bilirubin 0.7 (0.2-1.3) mg/dL AST 31 (17-59) U/L ALT 34 (6-50) U/L Alkaline Phosphatase 58 (38-126) U/L Total Protein 6.8 (6.3-8.2) g/dL Albumin 3.8 (3.5-5.1) g/dL Urine Color Yellow (Yellow) Urine Appearance Clear (Clear) Urine pH 7.0 (5.0-9.0) Ur Specific [place] 1.022 (1.001-1.035) Urine Protein 3+ H (Negative) mg/dL Urine Glucose (UA) Negative (Negative) mg/dL Urine Ketones Negative (Negative) mg/dL Ur Blood (Man) 2+ H (Negative) Urine Nitrate Negative (Negative) Urine Bilirubin Negative (Negative) Urine Urobilinogen 1.0 (<2.0) mg/dL Leukocyte Esterase Rfl Negative (Negative) AVERY/UL Urine RBC 21-50 H (0-2) /hpf Urine WBC 0-5 (0-3) /hpf Ur Squamous Epith Cells None seen (Few) /hpf Urine Bacteria None seen /hpf Urine Casts 0-2 <ZACH Wren - Last Filed: 09/27/25 14:48> Lab Results 09/27/25 09/27/25 Range/Units 10:21 11:08 WBC 8.2 (4.5-10.0) K/mm3 RBC 5.33 (4.6-6.20) M/mm3 Hgb 16.9 (14.0-18.0) g/dL Hct 49.2 (42.0-52.0) % MCV 92.3 (80-100) fl MCH 31.7 (26-34) pg MCHC 34.3 (32-36) g/dl RDW 12.6 (11.5-14.5) % Plt Count 297 (150-375) k/mm3 MPV 10.0 (7.4-10.4) fl Immature Gran % (Auto) 1.0 H (0-0.5) % Neut % (Auto) 60.2 (45.5-73.1) % Lymph % (Auto) 24.9 (18.3-44.2) % [place] % (Auto) 10.6 H (2.6-8.5) % Eos % (Auto) 2.1 (0-4.4) % Baso % (Auto) 1.2 (0.2-1.2) % Lymph # (Auto) 2.04 (0.9-3.2) K/mm3 [place] # (Auto) 0.9 H (0.1-0.6) K/mm3 Eos # (Auto) 0.2 (0-0.3) K/mm3 Baso # (Auto) 0.1 (0.0-0.1) K/mm3 Abs Immat Gran (auto) 0.08 H (0.00-0.031) K/mm3 Absolute Neuts (auto) 4.9 (1.3-6.7) K/mm3 Absolute Nucleated RBC 0.000 (0.0-0.012) K/mm3 Nucleated RBC % 0.0 (0.0-0.2) % Sodium 135 L (137-145) mmol/L Potassium 4.2 (3.4-5.0) mmol/L Chloride 105 (98-107) mmol/L Carbon Dioxide 25 (22-30) mmol/L Anion Gap 5 (4-12) mmol/L BUN 22 H (9-20) mg/dL Creatinine 1.35 H (0.7-1.3) mg/dL Estim Creat Clear Calc 76 ml/min Estimated GFR 59 (59 - ) Glucose 95 (65-110) mg/dL Calcium 8.9 (8.4-10.2) mg/dL Total Bilirubin 0.7 (0.2-1.3) mg/dL AST 31 (17-59) U/L ALT 34 (6-50) U/L Alkaline Phosphatase 58 (38-126) U/L Total Protein 6.8 (6.3-8.2) g/dL Albumin 3.8 (3.5-5.1) g/dL Urine Color Yellow (Yellow) Urine Appearance Clear (Clear) Urine pH 7.0 (5.0-9.0) Ur Specific [place] 1.022 (1.001-1.035) Urine Protein 3+ H (Negative) mg/dL Urine Glucose (UA) Negative (Negative) mg/dL Urine Ketones Negative (Negative) mg/dL Ur Blood (Man) 2+ H (Negative) Urine Nitrate Negative (Negative) Urine Bilirubin Negative (Negative) Urine Urobilinogen 1.0 (<2.0) mg/dL Leukocyte Esterase Rfl Negative (Negative) AVERY/UL Urine RBC 21-50 H (0-2) /hpf Urine WBC 0-5 (0-3) /hpf Ur Squamous Epith Cells None seen (Few) /hpf Urine Bacteria None seen /hpf Urine Casts 0-2 <Jason Berumen MD - Last Filed: 09/27/25 20:10> Imaging Data Attestation: I personally reviewed and interpreted this imaging study as follows: <ZACH Wren - Last Filed: 09/27/25 14:48> Radiologist's impression: ITS Impressions Chest X-Ray 09/27/25 11:06 Impression: No acute cardiopulmonary abnormality. Abdomen/Pelvis CT 09/27/25 11:50 IMPRESSION: 1. Directed noncontrast CT of the abdomen and pelvis demonstrating no focal acute process to explain source of hematuria. Incompletely evaluated lesions of the kidneys as above; correlate with renal ultrasound or for optimal evaluation of abdominal MRI. 2. Moderately advanced diverticular disease in the sigmoid colon. Mild sigmoidal wall thickening may be present in this area as well. <ZACH Wren - Last Filed: 09/27/25 14:48> ECG Data EKG #1: ECG completion date: 09/27/25 <ZACH Wren - Last Filed: 09/27/25 14:48> ECG completion time: 10:12 <ZACH Wren - Last Filed: 09/27/25 14:48> EKG Interpretation: normal rate, sinus rhythm and no ST changes <ZACH Wren - Last Filed: 09/27/25 14:48> Discharge Plan Discharge Clinical Impression: Dizziness, Hypertension, Hematuria <ZACH Wren - Last Filed: 09/27/25 14:48> Patient Disposition: Home <ZACH Wren - Last Filed: 09/27/25 14:48> Condition: Stable <ZACH Wren - Last Filed: 09/27/25 14:48> Instructions: Chronic Hypertension (ED), Dizziness (ED) <ZACH Wren - Last Filed: 09/27/25 14:48> Additional Instructions: Return to the emergency department if you experience fever, chest pain, shortness of breath, abdominal pain with nausea and vomiting, weakness, numbness/tingling, or any other symptoms that are concerning to you. Be sure to follow-up with nephrology per your PCP instructions. Follow up with primary care doctor for further care. <ZACH Wren - Last Filed: 09/27/25 14:48> Patient Language: Armenian <ZACH Wren - Last Filed: 09/27/25 14:48> Prescriptions: No Action lisinopril 10 mg tablet 10 mg PO DAILY amlodipine 10 mg tablet 10 mg PO DAILY vilazodone [Viibryd] 20 mg tablet 20 mg PO DAILY Rx Instructions: must administer with a meal/food <ZACH Wren - Last Filed: 09/27/25 14:48> Follow-up/Referrals: Hayden,AUTUMN Johnston [Primary Care Provider, Unknown] <ZACH Wren - Last Filed: 09/27/25 14:48>
[2025-09-27 10:43] LABS: Alanine Aminotransferase 34 U/L (6-50); Albumin Level 3.8 g/dL (3.5-5.1); Alkaline Phosphatase 58 U/L (38-126); Anion Gap 5 mmol/L (4-12); Aspartate Amino Transferase 31 U/L (17-59); Bilirubin,Total 0.7 mg/dL (0.2-1.3); Blood Urea Nitrogen 22 mg/dL (9-20); Calcium 8.9 mg/dL (8.4-10.2); Carbon Dioxide 25 mmol/L (22-30); Chloride 105 mmol/L (98-107); Estimated CRCL calculation 76 ml/min; Estimated Glomerular Filt Rate 59; Glucose 95 mg/dL (65-110); Potassium 4.2 mmol/L (3.4-5.0); Sodium 135 mmol/L (137-145); Total Protein 6.8 g/dL (6.3-8.2)
--- OUTSIDE RECORDS SUMMARY | 2025-09-27 11:15 | XMS_ITS | Encounter Summary ---
Author Organization [facility] Address [address] [place] [id number] Care Team Providers Care Engraver Copperplate Name Role Phone Cony Blake NP Primary Care Provider [phone] Encounter Details Date Type Department Care Team (Late st Contact Info) Description 07/08/2023 MyChart Message Enc [facility] [address] [facility] [address] [place] [address] Cony Blake NP [address] [place] [address] follow up Social History Tobacco [...] Sex Assigned at Male 12/31/2024 8:40 AM APPLICATIONS PROGRAMMER Legal Sex Male 8:06 PM CDT Gender Identity Male 12/31/2024 8:40 AM APPLICATIONS PROGRAMMER Sexual Orientation Straight 12/31/2024 8: 40 AM APPLICATIONS PROGRAMMER documented as of this encounter Plan of Treatment Upcoming Encounters Date Type Department Care Team (Late st Contact Info) Description 10/11/2025 3:00 PM APPLICATIONS PROGRAMMER Office Visit [facility] [address] [facility] [address] [place] [address] Cony Blake NP [address] [place] [address] documented as of this encounter Visit Diagnoses Not on filedocumented in this encounter Additional Health Concerns Infection Onset Date Last Indicated Resolved Time COVID-19 Rule Out 09/07/2024 09/07/2024 09/07/2024 9:27 PM CDT Assessment Noted Time PHQ-9 Depression Total Score: 14 023 11:24 AM CDT documented as of this encounter Care Teams Engraver Copperplate Relationship Specialty Start Date End Date Cony Blake NP [address] [place] [address] PCP - General NURSE PRACTITIONER 06/20/23 documented as of this encounter
--- OUTSIDE RECORDS SUMMARY | 2025-09-27 11:15 | XMS_ITS | Encounter Summary ---
Author Organization [facility] Address [address] [place] [address] Care Team Providers Care Inspector Salvage Name Role Phone Cony Blake NP Primary Care Provider [phone] Encounter Details Date Type Department Care Team (Latest Contact Info) Description 09/26/2025 Travel Social History Tobacco Use Types Packs/Day Years [...] Sex Assigned at Male 12/31/2024 8:40 AM CUSTOMER OPERATIONS SPECIALIST Legal Sex Male 8:06 PM CDT Gender Identity Male 12/31/2024 8:40 AM CUSTOMER OPERATIONS SPECIALIST Sexual Orientation Straight 12/31/2024 8: 40 AM CUSTOMER OPERATIONS SPECIALIST documented as of this encounter Plan of Treatment Upcoming Encounters Date Type Department Care Team (Late st Contact Info) Description 10/11/2025 3:00 PM CUSTOMER OPERATIONS SPECIALIST Office Visit [facility] [place] [address] [facility] [address] [place], [place] [id number] Cony Blake NP [address] [place], [place] [id number] documented as of this encounter Visit Diagnoses Not on filedocumented in this encounter Additional Health Concerns Assessment Noted Time PHQ-9 Depression Total Score: 4 12/31/19 25 9:03 AM CUSTOMER OPERATIONS SPECIALIST documented as of this encounter Care Teams Inspector Salvage Relationship Specialty Start Date End Date Cony Blake NP [address] [place] [address] PCP - General NURSE PRACTITIONER 06/20/23 documented as of this encounter
--- OUTSIDE RECORDS SUMMARY | 2025-09-27 11:15 | XMS_ITS | Clinical Summary ---
Author Organization [facility] Address [address] [place] [address] Care Team Providers Care Transistor Tester Name Role Phone Cony Blake APRN-STAKING TECHNICIAN Primary Care Provi cam Source Comments [facility],non-owned Affiliates and Associated Physician Practices is amultiple site organization consisting of ambulatory clinics and hospital sitesin [place], [place], [place] and [place]. This disclosure is being madepursuant to the Care Everywhere program and may not contain all information available regarding this patient. Last updated 18.[facility] Allergies Active Allergy Reactions Criticality Noted Date [...] Department Care Team Description 09/19/2025 10:43 AM INTERNET MERCHANT - 09/20/2025 1:35 PM [facility] Hospital Encounter [facility] [address] [place] [id number] Yolanda Zelaya MD Sallis, Milton, MD Muthyala, Usha R, MD Hall, Cary, MD Kumar, Hanesh, MD Hospitalist Discharge Disposition: Home or Self Care 09/19/2025 Travel from Last 3 Months Social History Tobacco Use Types Packs/Day Years Used Date Smoking Tobacco: Every Day Cigarettes 1 22.9 Started: 2002 Tobacco Cessation:Ready to Q uit: No; Counseling Given: Yes Alcohol Use Standard Drinks/Week Comments Yes 1 (1 standard drink = 0.6 oz pur e alcohol) Overall Financial Resource Strain (CARDIA) Answe r Date Recorded How hard is it for you to pa y for the very basics like food, housing, medical care, and heating? Not very hard 09/08/2024 [facility] - Occupational Stress [...] any time in the past 12 m [facility], were you homeless or living in a retirement (including now)? No 09/08/2024 AUDIT-C Answer Date [...] on file Legal Sex Male 5:50 PM INTERNET MERCHANT Gender Identity Not on file Sexual Orientation Not on file Last Filed Vital Signs Vital Sign Reading Time Taken Comments Blood Pressure 119/90 09/20/2025 11:18 AM INTERNET MERCHANT Pulse 81 09/20/2025 11:18 AM INTERNET MERCHANT Temperature 36.6 C (97.9 F) 09/20/2025 11:18 AM INTERNET MERCHANT Respiratory Rate 18 09/20/2025 11:18 AM INTERNET MERCHANT Oxygen Saturation 99% 09/20/2025 11:18 AM INTERNET MERCHANT Inhaled Oxygen Concentration - - Weight 90.7 kg (200 lb) 09/19/2025 10:47 AM INTERNET MERCHANT Height 177.8 cm (5' 10) 09/19/2025 10:47 AM INTERNET MERCHANT Body Mass Index 28.7 09/19/2025 10:47 AM INTERNET MERCHANT Plan of Treatment Upcoming Encounters Date Type Department Care Team (Late st Contact Info) Description 10/06/2025 8:20 AM INTERNET MERCHANT Documentation [address] [phone] 10/06/2025 8:40 AM INTERNET MERCHANT Office Visit [facility] [address] [phone] [place] [id number] [phone] Health Maintenance Due Date Last [...] Procedure Name Priority Date/Time Associated Diagnosis Comments CARDIAC RHYTHM STRIP ORDER 09/22/2025 7:53 PM INTERNET MERCHANT ERYTHROPOIETIN Routine 09/20/2025 10:35 AM INTERNET MERCHANT Erythrocytosis CARBON MONOXIDE Routine 09/20/2025 8:28 AM INTERNET MERCHANT Erythrocytosis CBC W/O DIFFERENTIAL Routine 09/20/2025 4:01 AM INTERNET MERCHANT Hypertensive urgency Epistaxis BASIC METABOLIC PANEL (CALCIUM TOTAL) Routine 09/20/2025 4:01 AM INTERNET MERCHANT Sinus tachycardia Hypertensive urgency Epistaxis JAK2 GENE V617F MUTATION QUAL AM Draw 09/20/2025 4:01 AM INTERNET MERCHANT Epistaxis TROPONIN-I HIGH SENSITIVE REFLEX 1HOUR Timed 09/19/2025 1:12 PM INTERNET MERCHANT EKG 12-LEAD STAT 09/19/2025 1:04 PM INTERNET MERCHANT Sinus tachycardia URINALYSIS REFLEX MICROSCOPIC REFLEX CULTURE STAT 09/19/2025 11:04 AM INTERNET MERCHANT ALCOHOL ETHYL BLOOD Add on 09/19/2025 1 1:00 AM INTERNET MERCHANT NT-PRO BNP Add on 09/19/2025 11:00 AM INTERNET MERCHANT TROPONIN-I HIGH SENSITIVE BASELINE + 1HR Add on 09/19/2025 11:00 AM INTERNET MERCHANT COMPREHENSIVE METABOLIC PANEL STAT 09/19/2025 11:00 AM INTERNET MERCHANT CBC W AUTO DIFFERENTIAL STAT 09/19/2025 11:00 AM INTERNET MERCHANT LIPID PROFILE Routine 09/09/2024 6:13 AM CDT from Last 3 Months or Most Recently Relevant to Health Maintenance Results * CARDIAC RHYTHM STRIP ORDER (09/22/2025 7:53 PM INTERNET MERCHANT) Narrative 09/22/2025 7:53 PM INTERNET MERCHANT Ordered by an unspecified provider. us Scanned Document CARDIAC SERVICES ORDERABLES Fin al Result * ERYTHROPOIETIN (09/20/2025 10:35 AM INTERNET MERCHANT) Pathologist [facility] Erythropoietin 11.7 2.6 - 18.5 mIU/mL 09/21/2025 5:10 PM INTERNET MERCHANT [facility] ([facility]) Comment: [employer] [place] [employer] DxI 800 Immunoassay System Values obtained with different assay methods or kits cannot be used interchangeably. Results cannot be interpreted as absolute evidence of the presence or absence of malignant disease. Blood BLOOD SPECIMEN / Unknown Venipuncture / Unknown 09/20/2025 10:35 AM INTERNET MERCHANT 09/20/2025 10:42 AM INTERNET MERCHANT Narrative [facility] ([facility]) - 09/21/2025 5:10 PM INTERNET MERCHANT Performed at: - [address] [id number] Technical Sales Representative: Mikael Whaley PhD, Phone: [phone] Mani Goode MD LAB - CHEMISTRY ORDERABLES Shante l Result [facility] ([facility]) [address] [place] [address] * (ABNORMAL) CARBON MONOXIDE (09/20/2025 8:28 AM INTERNET MERCHANT) Carboxyhemoglobin 3.5(H) 0.0 - 2.0 % 09/20/2025 10:41 AM INTERNET MERCHANT [facility] RESP THERAPY Perry's Test NA 09/20/2025 10:41 AM INTERNET MERCHANT [facility] RESP THERAPY Sample Site Other 09/20/2025 10:41 AM INTERNET MERCHANT [facility] RESP THERAPY Blood BLOOD SPECIMEN / Unknown 09/20/2025 8:28 AM INTERNET MERCHANT 09/20/2025 8:28 AM INTERNET MERCHANT us Mani Goode MD LAB - BLOOD GASES ORDERABLES Fi nal Result [facility] RESP THERAPY [id number] [phone] * JAK2 GENE V617F MUTATION QUAL (09/20/2025 4:01 AM INTERNET MERCHANT) JAK2 V617F Mutation Qualitative Comment 09/27/2025 10:10 AM INTERNET MERCHANT [facility] ([facility]) Comment: Result: NEGATIVE for the JAK2 V617F mutation. Interpretation: The G to T nucleotide change encoding the V617F mutation was not detected. This result does not rule out the presence of the JAK2 mutation at a level below the sensitivity of detection of this assay, or the presence of other mutations within JAK2 not detected by this assay. This result does not rule out a diagnosis of polycythemia vera, essential thrombocythemia or idiopathic myelofibrosis as the V617F mutation is not detected in all patients with these disorders. Background Comment 09/27/2025 10:10 AM INTERNET MERCHANT [facility] ([facility]) Comment: JAK2 is a cytoplasmic tyrosine kinase with a wan role in signal transduction from multiple hematopoietic growth factor receptors. A point mutation within exon 14 of the JAK2 gene ([id number]) encoding a valine to phenylalanine substitution at position 617 of the JAK2 protein (V617F) has been identified in most patients with polycythemia vera, and in about half of those with either essential thrombocythemia or idiopathic myelofibrosis. The V617F has also been detected, although infrequently, in other myeloid disorders such as chronic myelomonocytic leukemia and chronic neutrophilic luekemia. V617F is an acquired mutation that alters a highly conserved valine present in the negative regulatory JH2 domain of the JAK2 protein and is predicted to dysregulate kinase activity. Methodology: Total genomic DNA was extracted and subjected to TaqMan real-time PCR amplification/detection. Two amplification products per sample were monitored by real-time PCR using primers/probes specific to JAK2 wild type (WT) and JAK2 mutant V617F. The [employer] Absolute Quantitation software will compare the patient specimen valuse to the standard curves and generate percent values for wild type and mutant type. In vitro studies have indicated that this assay has an analytical sensitivity of 1%. References: Osiel FONSECA, Idris CRUZ, Milo PJ, et al. Acquired mutation of the tyrosine kinase JAK2 in human myeloproliferative disorders. Lancet. 2005 Feb 02; 365(9605):5493-8782. Edgard Moreira, Fabian V, Di Amaya PETAR. A unique clonal JAK2 mutation leading to constitutive signaling causes polycythaemia vera. Nature. 2005 Mar 14; 434(8891):4341-9587. Madhav R, Juju F, Hemalatha , et al. A kyzq-dt-whcvnten mutation of JAK2 in myeloproliferative disorders. N Engl J Med. 2005 Mar 14; 35217):9557-0859. Director Review Comment 10:10 AM [facility]) Comment: Technical Component performed at [facility] Professional Component performed by: Ld Jimenez, PhD, [facility] Director, Molecular Oncology [facility] [place], [address] [facility] [address] This test was developed and its performance characteristics determined by [facility]. It has not been cleared or approved by the Food and Drug Administration. Blood BLOOD SPECIMEN / Unknown Venipuncture / Unknown 09/20/2025 4:01 AM INTERNET MERCHANT 09/20/2025 4:07 AM INTERNET MERCHANT [facility] - 09/27/2025 10:10 AM INTERNET MERCHANT Performed at: - [facility] [address] [place], [place] [id number] Technical Sales Representative: Chika Rose [facility], Phone: [phone] Performed at: - [facility] [address] [place], [place] [id number] Technical Sales Representative: Chika Rose [facility], Phone: [phone] us Suzy Matrinez MD LAB - CHEMISTRY ORDERABLES Final Result [facility] ([facility]) [address] [place] [address] * (ABNORMAL) CBC W/O DIFFERENTIAL (09/20/2025 4:01 AM INTERNET MERCHANT) [facility] WBC 11.3(H) 4.0 - 10.7 x10E9/L 09/20/2025 4:17 AM [facility] RBC Count 5.07 4.30 - 5.80 x10E12/L 09/20/2025 4:17 AM [facility] Hemoglobin 15.6 13.3 - 17.5 g/dL 09/20/2025 4:17 AM [facility] Hematocrit 46.3 38.7 - 51.1 % 09/20/2025 4:17 AM [facility] MCV 91.3 80.0 - 98.0 fL 09/20/2025 4:17 AM [facility] MCH 30.8 26.7 - 33.6 pg 09/20/2025 4:17 AM [facility] MCHC 33.7 31.7 - 36.3 g/dL 09/20/2025 4:17 AM [facility] RDW-CV 13.0 11.3 - 14.8 % 09/20/2025 4:17 AM [facility] Platelet Count 243 150 - 420 x10E9/L 09/20/2025 4:17 AM [facility] MPV 10.3 7.8 - 11.4 fL 09/20/2025 4:17 AM [facility] Blood BLOOD SPECIMEN / Unknown Venipuncture / Unknown 09/20/2025 4:01 AM INTERNET MERCHANT 09/20/2025 4:07 AM [facility] us Suzy Martinez MD LAB - HEMATOLOGY ORDERABLES Shante l Result [facility] [address] [place] [address] * (ABNORMAL) BASIC METABOLIC PANEL (CALCIUM TOTAL) (09/20/2025 4:01 AM INTERNET MERCHANT) Glucose 102(H) 70 - 99 mg/dL 09/20/2025 4:30 AM [facility] Sodium 136 136 - 145 mmol/L 09/20/2025 4:30 AM [facility] Potassium 4.3 3.5 - 5.1 mmol/L 09/20/2025 4:30 AM [facility] Chloride 108(H) 98 - 107 mmol/L 09/20/2025 4:30 AM [facility] CO2 23 22 - 29 mmol/L 09/20/2025 4:30 AM [facility] Calcium 8.7 8.4 - 10.4 mg/dL 09/20/2025 4:30 AM [facility] Anion Gap 5(L) 6 - 16 mmol/L 09/20/2025 4:30 AM [facility] BUN 20(H) 5.3 - 18.7 mg/dL 09/20/2025 4:30 AM [facility] Creatinine 1.46(H) 0.60 - 1.20 mg/dL 09/20/2025 4:30 AM [facility] eGFR by CKD-EPI 62(L) >=90 mL/min/1.7 3 m2 09/20/2025 4:30 AM [facility] Comment:Estimated Glomerular Filtration Rate (eGFR) calculated using the CKD-EPI Creatinine Equation (2020), per the National Kidney Foundation and [place] Society of Nephrology recommendations. Blood BLOOD SPECIMEN / Unknown Venipuncture / Unknown 09/20/2025 4:01 AM INTERNET MERCHANT 09/20/2025 4:07 AM INTERNET MERCHANT Suzy Martinez MD LAB - CHEMISTRY ORDERABLES Final Result Performing Organization Address City/[facility] Co de Phone Number [facility] [id number] [place] [phone] * TROPONIN-I HIGH SENSITIVE REFLEX 1HOUR (09/19/2025 1:12 PM INTERNET MERCHANT) Troponin I High Sensitive 11 <=35 ng/L 09/19/2025 1:37 PM INTERNET MERCHANT [facility] Delta Troponin I HS 09/19/2025 1:37 PM INTERNET MERCHANT [facility] Comment:Delta value intentio miky not calculated. Baseline to 1 hour specimen collection interval exceeded. Blood BLOOD SPECIMEN / Unknown Venipuncture / Unknown 09/19/2025 1:12 PM INTERNET MERCHANT 09/19/2025 1:14 PM INTERNET MERCHANT Murray Richard MD LAB - CHEMISTRY ORDERABLES Shante l Result Performing Organization Address City/[facility]/ZIP Co de Phone Number [facility] [address] [place] [address] * EKG 12-Lead (09/19/2025 1:04 PM INTERNET MERCHANT) Ventricular Rate 113 BPM [facility] Atrial Rate 113 BPM [facility] P-R Interval 148 ms [facility] QRS Duration ms 76 ms [facility] Q-T Interval ms 342 ms [facility] QTC Calculation (Bezet) 469 ms [facility] Calculated P [place] 67 degrees [facility] Calculated R [place] -19 degrees [facility] Calculated T [place] 75 degrees [facility] Interpretation EKG Sinus tachycardia Possible Inferior infarct , age undetermined Abnormal ECG No previous ECGs available Confirmed by LIANNA ROSE MD ([id number]) on 09/19/2025 6:28:09 PM [facility] MUSE 09/19/2025 1:04 PM INTERNET MERCHANT 09/19/2025 6:28 PM INTERNET MERCHANT Murray Richard MD ECG ORDERABLES Edited Result - Final [facility] * (ABNORMAL) URINALYSIS REFLEX MICROSCOPIC REFLEX CULTURE (09/19/2025 11:04 AM INTERNET MERCHANT) Color UA Yellow Yellow, Straw 09/19/2025 11:26 AM [facility] Clarity UA Clear Clear 09/19/2025 11:26 AM INTERNET MERCHANT [facility] Glucose UA Normal Normal 09/19/2025 11:26 AM INTERNET MERCHANT [facility] Bilirubin UA Negative Negative 09/19/2025 11:26 AM INTERNET MERCHANT [facility] Ketone UA Negative Negative 09/19/2025 11:26 AM INTERNET MERCHANT [facility] Specific [place] UA 1.026 1.005 - 1.030 09/19/2025 11:26 AM INTERNET MERCHANT [facility] Blood UA 3+(A) Negative 09/19/2025 11:26 AM [facility] pH UA 6.0 5.0 - 8.0 09/19/2025 11:26 AM [facility] Protein UA 2+(A) Negative 09/19/2025 11:26 AM INTERNET MERCHANT [facility] Urobilinogen UA Normal Normal mg/dL 09/19/2025 11:26 AM INTERNET MERCHANT [facility] Nitrite UA Negative Negative 09/19/2025 11:26 AM INTERNET MERCHANT [facility] Leukocyte Esterase UA Negative Negative 09/19/2025 11:26 AM [facility] RBC UA 11-20(A) 0 - 5 # /hpf 09/19/2025 11:26 AM INTERNET MERCHANT [facility] WBC UA 0-5 0 - 5 # /hpf 09/19/2025 11:26 AM INTERNET MERCHANT [facility] Bacteria UA None Seen None Seen 09/19/2025 11:26 AM INTERNET MERCHANT [facility] Squamous Epithelial Cells 0-2 0 - 5 /hpf 09/19/2025 11:26 AM INTERNET MERCHANT [facility] Mucus UA 3+ /LPF 09/19/2025 11:26 AM INTERNET MERCHANT [facility] Hyaline Casts 0-2 0 - 2 /LPF 09/19/2025 11:26 AM [facility] Reflex Status Culture not indicated 09/19/2025 11:26 AM [facility] Urine URINE SPECIMEN OBTAINED BY CLEAN CATCH PROCEDURE / Unknown Collection / Unknown 09/19/2025 11:04 AM INTERNET MERCHANT 09/19/2025 11:08 AM INTERNET MERCHANT Murray Richard MD LAB - URINALYSIS ORDERABLES Fin al Result [facility] [address] [place] [address] * NT-PRO BNP (09/19/2025 11:00 AM INTERNET MERCHANT) NT-proBNP 253.7 <450.0 pg/mL 09/19/2025 1:21 PM [facility] Blood BLOOD SPECIMEN / Unknown Venipuncture / Unknown 09/19/2025 11:00 AM INTERNET MERCHANT 09/19/2025 11:07 AM INTERNET MERCHANT Narrative [facility] - 09/19/2025 1:21 PM [facility] NT-pro-BNP values below 300 pg/mL, for individuals 18 or above, have a 99% negative predictive value for excluding acute congestive heart failure (CHF). In patients with eGFR less than 60 mL/min/1.73 m2, caution should be used when interpreting NT-pro-BNP results. Results should be assessed in conjunction with the patient s medical history, clinical examination, and other findings. NT-pro-BNP is measured on the ChemDAQniOpSource analyzer using chemiluminescent microparticle immunoassay (CMIA) technology. us Murray Richard MD LAB - CHEMISTRY ORDERABLES Shante l Result Performing Organization Address [facility] Co de Phone Number [facility] [id number] [place] [phone] * TROPONIN-I HIGH SENSITIVE BASELINE + 1HR (09/19/2025 11:00 AM INTERNET MERCHANT) [facility] Troponin I High Sensitive 12 <=35 ng/L 09/19/2025 1:21 PM INTERNET MERCHANT [facility] Blood BLOOD SPECIMEN / Unknown Venipuncture / Unknown 09/19/2025 11:00 AM INTERNET MERCHANT 09/19/2025 11:07 AM INTERNET MERCHANT us Murray Richard MD LAB - CHEMISTRY ORDERABLES Shante l Result Performing Organization Address [facility] de Phone Number [facility] [id number] [place] [phone] * (ABNORMAL) CBC W AUTO DIFFERENTIAL (09/19/2025 11:00 AM INTERNET MERCHANT) [facility] WBC 11.2(H) 4.0 - 10.7 x10E9/L 09/19/2025 11:26 AM INTERNET MERCHANT [facility] RBC Count 6.33(H) 4.30 - 5.80 x10E12/L 09/19/2025 11:26 AM INTERNET MERCHANT [facility] Hemoglobin 19.7(H) 13.3 - 17.5 g/dL 09/19/2025 11:26 AM INTERNET MERCHANT [facility] Hematocrit 58.2(H) 38.7 - 51.1 % 09/19/2025 11:26 AM INTERNET MERCHANT [facility] MCV 91.9 80.0 - 98.0 fL 09/19/2025 11:26 AM INTERNET MERCHANT [facility] MCH 31.1 26.7 - 33.6 pg 09/19/2025 11:26 AM INTERNET MERCHANT [facility] MCHC 33.8 31.7 - 36.3 g/dL 09/19/2025 11:26 AM INTERNET MERCHANT [facility] RDW-CV 12.9 11.3 - 14.8 % 09/19/2025 11:26 AM [facility] Platelet Count 288 150 - 420 x10E9/L 09/19/2025 11:26 AM [facility] MPV 10.4 7.8 - 11.4 fL 09/19/2025 11:26 AM [facility] Neutrophil % 67.9 41.0 - 74.0 % 09/19/2025 11:26 AM [facility] Lymphocyte % 22.2 17.0 - 47.0 % 09/19/2025 11:26 AM [facility] Monocyte % 6.7 3.0 - 11.0 % 09/19/2025 11:26 AM [facility] Eosinophil % 0.8 0.0 - 7.0 % 09/19/2025 11:26 AM [facility] Basophil % 1.1 0.0 - 1.6 % 09/19/2025 11:26 AM [facility] Immature Granulocytes % 1.3(H) 0.0 - 1.0 % 09/19/2025 11:26 AM [facility] Neutrophil Absolute 7.63(H) 1.60 - 7.50 x10E9/L 09/19/2025 11:26 AM [facility] Lymphocyte Absolute 2.49 1.00 - 4.40 x10E9/L 09/19/2025 11:26 AM [facility] Monocyte Absolute 0.75 0.15 - 1.00 x10E9/L 09/19/2025 11:26 AM [facility] Eosinophil Absolute 0.09 0.00 - 0.60 x10E9/L 09/19/2025 11:26 AM [facility] Basophil Absolute 0.12 0.00 - 0.13 x10E9/L 09/19/2025 11:26 AM [facility] Blood BLOOD SPECIMEN / Unknown Venipuncture / Unknown 09/19/2025 11:00 AM INTERNET MERCHANT 09/19/2025 11:07 AM INTERNET MERCHANT us Yolanda Zelaya MD LAB - HEMATOLOGY ORDERABLES Fi nal Result [facility] [address] [place] [address] * (ABNORMAL) COMPREHENSIVE METABOLIC PANEL (09/19/2025 11:00 AM [facility]) Glucose 94 70 - 99 mg/dL 09/19/2025 11:24 AM [facility] Sodium 141 136 - 145 mmol/L 09/19/2025 11:24 AM [facility] Potassium 4.3 3.5 - 5.1 mmol/L 09/19/2025 11:24 AM [facility] Chloride 106 98 - 107 mmol/L 09/19/2025 11:24 AM [facility] CO2 25 22 - 29 mmol/L 09/19/2025 11:24 AM [facility] Calcium 9.8 8.4 - 10.4 mg/dL 09/19/2025 11:24 AM [facility] Anion Gap 10 6 - 16 mmol/L 09/19/2025 11:24 AM [facility] BUN 20(H) 5.3 - 18.7 mg/dL 09/19/2025 11:24 AM [facility] Creatinine 1.65(H) 0.60 - 1.20 mg/dL 09/19/2025 11:24 AM [facility] Alkaline Phosphatase 67 40 - 150 U/L 09/19/2025 11:24 AM [facility] ALT 36 6 - 57 U/L 09/19/2025 11:24 AM [facility] AST 30 10 - 48 U/L 09/19/2025 11:24 AM [facility] Protein Total 7.9 6.4 - 8.3 gm/dL 09/19/2025 11:24 AM [facility] Albumin 4.2 3.1 - 4.5 gm/dL 09/19/2025 11:24 AM [facility] Bilirubin Total 0.5 0.2 - 1.2 mg/dL 09/19/2025 11:24 AM [facility] eGFR by CKD-EPI 54(L) >=90 mL/min/1.7 3 m2 09/19/2025 11:24 AM [facility] Comment:Estimated Glomerular Filtration Rate (eGFR) calculated using the CKD-EPI Creatinine Equation (2020), per the National Kidney Foundation and [place] Society of Nephrology recommendations. Blood BLOOD SPECIMEN / Unknown Venipuncture / Unknown 09/19/2025 11:00 AM INTERNET MERCHANT 09/19/2025 11:07 AM INTERNET MERCHANT us Murray Richard MD LAB - CHEMISTRY ORDERABLES Shante l Result Performing Organization Address [facility] de Phone Number [facility] [id number] [place] [address] * ALCOHOL ETHYL BLOOD (09/19/2025 11:00 AM INTERNET MERCHANT) Ethanol <10.0 <10 mg/dL 09/19/2025 1:55 PM INTERNET MERCHANT [facility] Ethanol Calculated <0.010 <=0.100 gm/dL 09/19/2025 1:55 PM INTERNET MERCHANT [facility] Blood BLOOD SPECIMEN / Unknown Venipuncture / Unknown 09/19/2025 11:00 AM INTERNET MERCHANT 09/19/2025 11:07 AM INTERNET MERCHANT Narrative [facility] - 09/19/2025 1:55 PM INTERNET MERCHANT Ethanol Interp <10: None Detected Depression of [...] not equal a MANJIT for legal purposes. us Murray Richard MD LAB - CHEMISTRY ORDERABLES Shante l Result Performing Organization Address [facility] Co de Phone Number [facility] [address] [place] [address] * (ABNORMAL) LIPID PROFILE (09/09/2024 6:13 AM CDT) Cholesterol 186 <200 mg/dL 09/09/2024 6:44 AM CDT [facility] Triglycerides 155(H) <150 mg/dL 09/09/2024 6:44 AM CDT [facility] HDL Cholesterol 53 >40 mg/dL 6:44 AM CDT [facility] Chol HDL Ratio 3.5 1.0 - 6.0 09/09/2024 6:44 AM CDT [facility] LDL Calculated 102 65 - 130 mg/dL 09/09/2024 6:44 AM CDT [facility] VLDL Calculated 31(H) <=30 mg/dL 6:44 AM CDT [facility] Blood BLOOD SPECIMEN / Unknown Lab Venipuncture / Unknown 09/09/2024 6:13 AM CDT 09/09/2024 6:17 AM CDT Narrative [facility] - 09/09/2024 6:44 AM CDT Lipid [...] 9.5 ...................... 7.0 3X AVERAGE...................>23........................>11 Yesi Conteh RN IMAGING-STAKING TECHNICIAN LAB - CHEMISTRY ORDERAB LES Final Result [facility] [address] [place] [address], [facility] from Last 3 Months or Most Recently Relevant to Health Maintenance Insurance MEDICAID - [place] [facility] Advance Directives * Full Code (Latest Code Status on File) Date Activated Date Inactivated Comments 09/19/2025 2:20 PM 09/20/2025 2:51 PM * Full Code Date Activated Date Inactivated Comments 09/08/2024 8:38 AM 09/11/2024 11:23 AM Care Teams Transistor Tester Relationship Specialty Start Date End Date Cony Blake, RN IMAGING-STAKING TECHNICIAN [address] [place] [address] PCP - General Nurse Practitioner 09/08/24
--- OUTSIDE RECORDS SUMMARY | 2025-09-27 11:15 | XMS_ITS | Patient Health Record ---
Author Organization Replaced by [facility] Address [address] [place] [address] Care Team Providers Care Torch Shearer Name Role Phone Venus Meade Primary Care Provider Albina Tavarez Unavailable [phone] Allergies No Known Allergies Reason For Referral [...] Status Risk Notes Problem Generalized anxiety disorder (81398612) Generalized anxiety disorder (F41.1) Active confirmed Problem Major depression (763449355) Major depression (F32.9) Active confirmed Problem Posttraumatic stress disorder (10752118) PTSD (post-traumatic stress disorder) (F43.10) Active confirmed Problem Anxiety (67798963) Anxiety (F41.9) Active confirmed Problem Attention deficit hyperactivity disorder (437167726) ADHD (attention deficit hyperactivity disorder) (F90.9) Active confirmed Vital Signs Heart Rate 81 /min 02/08/2025 Temperature 98.0 degrees Fahrenheit 02/08/2025 Respiratory Rate 16 /min 02/08/2025 Blood pressure diastolic 84 mm Hg 03/08/2025 Oximetry 99 % 02/08/2025 Height 72 in 02/08/2025 Blood pressure systolic 138 mm Hg 03/08/2025 Weight 202.7 lbs 02/08/2025 BMI 27.49 kg/m2 02/08/2025 Encounters Encounter Location Date Provider Diagnosis [facility] [address] [place] [address] 10/05/2024 Venus Meade Generalized anxiety disorder F41.1 ; Major depression F32.9 and ADHD (attention deficit hyperactivity disorder) F90.[address] [place] [address] 11/24/2024 Venus Meade Generalized anxiety disorder F41.1 ; Major depression F32.9 and ADHD (attention deficit hyperactivity disorder) F90.9 [facility] [address] [place] [address] 12/28/2024 Venus Meade Generalized anxiety disorder F41.1 ; Major depression F32.9 and ADHD (attention deficit hyperactivity disorder) F90.9 [facility] [address] [place] [address] 02/08/2025 Venus Meade Generalized anxiety disorder F41.1 ; Major depression F32.9 and ADHD (attention deficit hyperactivity disorder) F90.9 [facility] [address] [place] [address] 03/08/2025 Venus Meade Generalized anxiety disorder F41.1 ; Major depression F32.9 and ADHD (attention deficit hyperactivity disorder) F90.[address] [place] [address] 04/07/2025 Venus Meade Generalized anxiety disorder F41.1 ; Major depression F32.9 and ADHD (attention deficit hyperactivity disorder) F90.[address] [address] 06/22/2025 Venus Meade Generalized anxiety disorder F41.1 ; Major depression F32.9 and ADHD (attention deficit hyperactivity disorder) F90.9 [facility] [address] [place] [address] 09/30/2024 Venus Meade [address] [address] 11/11/2024 Albina Tavarez Major depression F32.9 and ADHD (attention deficit hyperactivity disorder) F90.[address] [address] 12/27/[address] [address] 02/01/2025 Venus Meade ADHD (attention deficit hyperactivity disorder) F90.[address] [address] 03/01/2025 [place] [address] [place] [address] 03/30/2025 Venus Meade ADHD (attention deficit hyperactivity disorder) F90.9 and Major depression F32.9 [facility] [address] [place] [address] 04/28/2025 Venus Meade [address] [address] 05/10/2025 Venus Meade ADHD (attention deficit hyperactivity disorder) F90.9 [facility] [address] [place] [address] 05/31/2025 Venus Meade ADHD (attention deficit hyperactivity disorder) F90.9 [facility] [address] [place] [address] 06/09/2025 Venusabraham Meade ADHD (attention deficit hyperactivity disorder) F90.9 and Major depression F32.[address] [address] 08/15/2025 Venus Meade ADHD (attention deficit hyperactivity disorder) F90.[address] [address] 08/29/2025 Venus Meade [address] [address] 09/15/2025 Venus Meade Major depression F32.9 and ADHD (attention deficit hyperactivity disorder) F90.[address] [address] 02/10/2025 Venus Meade [address] [address] 02/23/2025 Venus Meade [address] [address] 02/28/2025 Venus Meade ADHD (attention deficit hyperactivity disorder) F90.9 and Major depression F32.9 Assessments Encounter Date Diagnosis (ICD Code) Assessment Notes Treatment Notes Treatment Clinical Notes Section Notes 10/05/2024 Generalized anxiety disorder (ICD-10 - F41.1) 11/11/2024 Major depression (ICD-10 - F32.9) 11/24/2024 Generalized anxiety disorder (ICD-10 - F41.1) 02/28/2025 ADHD (attention deficit hyperactivity disorder) (ICD-10 - F90.9) 03/08/2025 Generalized anxiety disorder (ICD-10 - F41.1) 12/28/2024 Generalized anxiety disorder (ICD-10 - F41.1) 05/10/2025 ADHD (attention deficit hyperactivity disorder) (ICD-10 - F90.9) 05/31/2025 ADHD (attention deficit hyperactivity disorder) (ICD-10 - F90.9) 06/09/2025 ADHD (attention deficit hyperactivity disorder) (ICD-10 - F90.9) 06/22/2025 Generalized anxiety disorder (ICD-10 - F41.1) 09/15/2025 Major depression (ICD-10 - F32.9) 08/15/2025 ADHD (attention deficit hyperactivity disorder) (ICD-10 - F90.9) 04/07/2025 Generalized anxiety disorder (ICD-10 - F41.1) 03/30/2025 ADHD (attention deficit hyperactivity disorder) (ICD-10 - F90.9) 02/08/2025 Generalized anxiety disorder (ICD-10 - F41.1) 02/01/2025 ADHD (attention deficit hyperactivity disorder) (ICD-10 - F90.9) 02/28/2025 Major depression (ICD-10 - F32.9) 03/30/2025 Major depression (ICD-10 - F32.9) 02/08/2025 Major depression (ICD-10 - F32.9) Take [...] well to discuss libido decrease. Client v/u. 09/15/2025 ADHD (attention deficit hyperactivity disorder) (ICD-10 - F90.9) 06/22/2025 Major depression (ICD-10 - F32.9) Take as prescribed. Reviewed purpose (mood stability), benefits, and risks - low blood pressure, metabolic syndrome with high cholesterol or high blood sugars, change in cardiac conduction, nausea, vomiting, temporary or permanent movement disorders, and akathisia. 06/09/2025 Major depression (ICD-10 - F32.9) 12/28/2024 Major depression (ICD-10 - F32.9) Take as prescribed. Reviewed purpose (mood stability), benefits, and risks - low blood pressure, metabolic syndrome with high cholesterol or high blood sugars, change in cardiac conduction, nausea, vomiting, temporary or permanent movement disorders, and akathisia. 03/08/2025 Major depression (ICD-10 - F32.9) Take [...] with PCP and monitor B/P. Client v/u. 03/08/2025 ADHD (attention deficit hyperactivity disorder) (ICD-10 - F90.9) Client to f/u with PCP and monitor B/P, stability noted. Client v/u. 12/28/2024 ADHD (attention deficit hyperactivity disorder) (ICD-10 - F90.9) Client to f/u with PCP and monitor B/P. Client v/u. Discussed B/P and to decrease caffeine. 06/22/2025 ADHD (attention deficit hyperactivity disorder) (ICD-10 - F90.9) Client to f/u with PCP and monitor B/P, stability noted. Client v/u. 04/07/2025 ADHD (attention deficit hyperactivity disorder) (ICD-10 - F90.9) Client to f/u with PCP and monitor B/P, stability noted. Client v/u. 02/08/2025 ADHD (attention deficit hyperactivity disorder) (ICD-10 - F90.9) Client to f/u with PCP and monitor B/P, improvement noted today. Client v/u. Discussed B/P and to decrease caffeine. 10/05/2024 Other will fill out [place] paperwork, recommending intermittent leave with leniency. Reasons, [...] May also contact the 24-hour crisis hotline ([facility]), refer to the closest emergency room or [...] May also contact the 24-hour crisis hotline ([facility]), refer to the closest emergency room or [...] May also contact the 24-hour crisis hotline ([facility]), refer to the closest emergency room or [...] May also contact the 24-hour crisis hotline ([facility]), refer to the closest emergency room or [...] May also contact the 24-hour crisis hotline ([facility]), refer to the closest emergency room or [...] May also contact the 24-hour crisis hotline ([facility]), refer to the closest emergency room or [...] May also contact the 24-hour crisis hotline ([facility]), refer to the closest emergency room or [...] Provider Name:Venus portillo, 09/28/2025 03:00:00 PM, [address] [facility] , [place], [address], Insurance Providers Payer Name Payer Address Payer Phone Subscriber Number Group Number Insured Name Patient Relationship to Insured Coverage Start Date Coverage End Date MEDICAID [address] [place] [address] [id number] Felipe Stanton Self - patient is the insured 2 2 [facility] [address] [place] [address] [id number] Felipe Stanton Self - patient is the insured 2 MEDICAID [address] [place] [address] [id number] Felipe Stanton Self - patient is the insured 2 [facility] [address] [place] [address] [phone] [id number] Felipe Stanton Self - patient is the insured 2 2 [facility] [address] [place] [address] [id number] Felipe Stanton Self - patient is the insured 2 2 MEDICAID [employer] [address] [place] [address] [id number] Felipe Stanton Self - patient is the insured 2 2 [facility] [email or web address] [facility] [address] [place] [address] [id number] Felipe Stanton Self - patient is the insured 2 2 [facility] [address] [place] [address] [id number] Felipe Stanton Self - patient is the insured 2 2 Medical (General) History Medical History History ICD Code ANXIETY Surgical History Surgery Date(Month/Year) Internal Hemorrhoids 2016 Tympanic Membrane Wrist Hospitalization History Reason Date(Month/Year) [facility] C. diff 2020 Pneumothorax 2016 Panic attack 2014
--- OUTSIDE RECORDS SUMMARY | 2025-09-27 11:15 | XMS_ITS | Clinical Summary ---
Author Organization [facility] Address [address] [place] [address] Care Team Providers Care K9 Handler Name Role Phone Cony Blake NP Primary Care Provider [phone] Allergies Active Allergy Reactions Criticality Noted Date Comments Aspirin Other (see comment) 08/25/2023 Hydrocodone-Acetaminophen Itching Low 02/14/2016 Medications BLOOD PRESSURE CUFF, DME,Indications: Uncontrolled hypertension 1 Device by Does not apply route 2 (two) times a day. 1 Device 06/20/20 23 Active traZODone (DESYREL) 50 MG tablet daily. Active ARIPiprazole (ABILIFY) 15 MG tablet daily. Active carvedilol (COREG) 6.25 MG tabletIndication s:Uncontrolled hypertension,Tac hycardia Take 1 tablet (6.25 mg total) by mouth 2 (two) times daily. 180 tablet 1 12/31/19 25 Active losartan (COZAAR) 25 MG tabletIndication s:Uncontrolled hypertension,Tac hycardia Take 1 tablet (25 mg total) by mouth daily. 90 tablet 1 12/31/19 25 Active amLODIPine (NORVASC) 5 MG tabletIndication s:Uncontrolled hypertension Take 1 tablet (5 mg total) by mouth daily. 90 tablet 1 09/26/20 25 Active VYVANSE 50 MG capsule Take 1 capsule (50 mg total) by mouth daily. 12/28/19 25 025 Discontinued amLODIPine (NORVASC) 10 MG tabletIndication s:Uncontrolled hypertension Take 1 tablet (10 mg total) by mouth daily. 90 tablet 1 01/20/20 25 025 Discontinued Active Problems Problem Noted Date Diagnosed Date Hx of chest pain 01/19/2025 Overview (01/19/2025): Has hx of chest pain, EKG done in office last time that was NSR. The chest pain does worry him. Assessment & Plan (01/19/2025 8:51 AM SENIOR SOFTWARE ANALYST): Will obtain echo and exercise stress test. Any severe chest pain, shortness of breath, jaw pain, left shoulder pain to seek ER care. Proteinuria, unspecified type 07/29/2024 Overview (12/31/2024): Follows with nephrology. Assessment & Plan (12/31/2024 9:03 AM SENIOR SOFTWARE ANALYST): Follow up with nephrology as directed.To preserve [...] PND. Assessment & Plan (01/19/2025 9:02 AM SENIOR SOFTWARE ANALYST): Chronic condition that is not controlled.Avoid excess caffeine, avoid stimulant use, avoid vaping, limit stressors. Pt to begin amlodipine 10mg daily, losartan 25mg daily and resume carvedilol 6.25mg BID. Assessment & Plan (12/31/2024 9:03 AM SENIOR SOFTWARE ANALYST): Chronic condition that is not controlled. There [...] today. Assessment & Plan (01/19/2025 8:53 AM SENIOR SOFTWARE ANALYST): Rechecking today. Assessment & Plan (12/31/2024 9:04 AM SENIOR SOFTWARE ANALYST): Will recheck labs. Could be also causing some of his issues. Assessment & Plan (07/29/2024 8:47 AM CDT): Will recheck and provide further recommendations once back. At risk for obstructive sleep apnea 06/21/2023 Overview (01/19/2025): Needs to schedule this still. Assessment & Plan (01/19/2025 8:47 AM SENIOR SOFTWARE ANALYST): Pt to schedule his home sleep study in near future. Assessment & Plan (12/31/2024 9:11 AM SENIOR SOFTWARE ANALYST): Sleep study reordered. Patient has multiple risk [...] month. Assessment & Plan (01/19/2025 9:05 AM SENIOR SOFTWARE ANALYST): Continue to follow with psychiatry as directed. Encourage therapy as well. His anxiety and depression is currently well controlled. Assessment & Plan (12/31/2024 9:08 AM SENIOR SOFTWARE ANALYST): Continue to follow with psychiatry as directed. [...] psychiatry. Assessment & Plan (01/19/2025 8:48 AM SENIOR SOFTWARE ANALYST): Recommend Guanfacine, Straterra, or Clonidine instead of Vyvance. Pt to discuss with his psychiatrist. He is working on stopping his Vyvance. He is taking less often now. Assessment & Plan (12/31/2024 9:00 AM SENIOR SOFTWARE ANALYST): I informed patient that I am uncomfortable [...] up. Assessment & Plan (12/31/2024 9:01 AM SENIOR SOFTWARE ANALYST): Patient to keep me updated on his [...] Encounters Date Type Department Care Team Description 09/26/2025 3:00 PM SENIOR SOFTWARE ANALYST Office Visit [address] [place] [address] Cony Blake NP TCM 09/26/2025 Travel 09/21/2025 Telephone [place] [id number] [facility] [address] [place] [address] Cony Blake NP [facility] 09/21/[address] [place] [address] Cony Blake NP [facility] 08/11/2025 Scan [facility] SRVCS Scanned, [...] Sex Assigned at Male 12/31/2024 8:40 AM SENIOR SOFTWARE ANALYST Legal Sex Male 8:06 PM CDT Gender Identity Male 12/31/2024 8:40 AM SENIOR SOFTWARE ANALYST Sexual Orientation Straight 12/31/2024 8: 40 AM SENIOR SOFTWARE ANALYST Last Filed Vital Signs Vital Sign Reading Time Taken Comments Blood Pressure 147/94 09/26/2025 3:06 PM SENIOR SOFTWARE ANALYST Pulse 86 09/26/2025 3:06 PM SENIOR SOFTWARE ANALYST Temperature 36.9 C (98.5 F) 09/26/2025 3:06 PM SENIOR SOFTWARE ANALYST Respiratory Rate 16 09/26/2025 3:06 PM SENIOR SOFTWARE ANALYST Oxygen Saturation 100% 09/26/2025 3:06 PM SENIOR SOFTWARE ANALYST Inhaled Oxygen Concentration - - Weight 95.3 kg (210 lb) 09/26/2025 3:06 PM SENIOR SOFTWARE ANALYST Height 177.8 cm (5' 10) 09/26/2025 3:06 PM SENIOR SOFTWARE ANALYST Body Mass Index 30.13 09/26/2025 3:06 PM SENIOR SOFTWARE ANALYST Plan of Treatment Upcoming Encounters Date Type Department Care Team (Late st Contact Info) Description 10/11/2025 3:00 PM SENIOR SOFTWARE ANALYST Office Visit [facility] Family Medicine - [place] [address] [facility] [address] [place] [id number] Cony Blake NP [address] [place] [address] Health Maintenance Due Date Last Done Comments Hepatitis B Vaccines (1 of 3 - 19+ 3-dose series) 2004 Pneumococcal Vaccine: Pediatrics (0 to 5 Years) and At-Risk Patients (6 to 49 Years) (1 of 2 - PCV) 2004 HPV Vaccines (1 - 3-dose SCDM series) 2012 COVID-19 Vaccine (3 - 2024- season) 2025 06/28/2021, 05/08/2021 Annual Physical 07/29/2025 07/29/2024, 06/20/2023 Influenza Adult (#1) 2025 09/18/2024, 02/12/2016, 12/19/2009, Additional history exists DTaP, Tdap and Td Vaccines (2 - Td or Tdap) 09/18/2027 09/18/2017, 06/22/2004 Meningococcal Vaccine Aged Out 06/22/2004 No bethanie ladonna eligible based on patient's age to complete this topic Hepatitis A Vaccines Aged Out 04/17/2005, 06/27/20 04 No longer eligible based on patient's age to complete this topic Hepatitis C Completed 06/23/2023 PHQ-2 (Physician [place]) Completed 12/31/2024 Meningococcal B Vaccine Aged Out No l onger eligible based on patient's age to complete this topic RSV Immunizations Under 20 Months Aged Out No longer eligible based on [...] HEPATITIS C AB NON-REACT PASTORA NON-REACT PASTORA [employer] [facility] Comment: HCV antibody was non-reactive. There is no laboratory evidence of HCV infection. In most cases, no further action is required. However, if recent HCV exposure is suspected, a test for HCV RNA (test code 70435) is suggested. For additional information please refer to http://education.[employer].de/faq/SUU07w2 (This link is being provided for informational/ educational purposes only.) 06/23/2023 7:28 AM CDT 06/23/2023 7:30 AM CDT Narrative [facility] - 07/02/2023 10:17 AM CDT FASTING:YES FASTING: YES Resulting Agency Comment Performing Organization Information: Site ID: [id number] Name: [facility] Address: [address] [address] Director: Farzaneh Wade MD us Cony Blake NP LABORATORY Final Res ult [facility] [employer] [facility] [address], [place] [address], from Last 3 Months or Most Recently Relevant to Health Maintenance Insurance [facility] MEDICAID Care Teams K9 Handler Relationship Specialty Start Date End Date Cony Blake NP [address] [place] [address] PCP - General NURSE PRACTITIONER 06/20/23
[2025-09-27 11:16] LABS: Add Urine Microscopic? YES; Appearance Urine Clear (Clear); Glucose Urine UA Negative (Negative); Leukocyte Esterase Ur Negative LEU/UL (Negative); Nitrate Urine Negative (Negative); Non Pathogenic Casts 0-2; Specific Grav Ur 1.022 (1.001-1.035)
--- OUTSIDE RECORDS SUMMARY | 2025-09-27 11:16 | XMS_ITS | Patient Health Record ---
Author Organization [facility] Address [address] [place] [address] Care Team Providers Care Illustrator Set Name Role Phone Bailey Hodge Unavailable [phone] Reason For Referral No Information Medications Medication [...] Coverage End Date [employer] [employer] [address] [place] [address] [id number] CHARISSA ORTIZ Self - patient is the insured [place] [address] [address] [place] [id number] CHARISSA ORTIZ Self - patient is the insured
--- OUTSIDE RECORDS SUMMARY | 2025-09-27 11:16 | XMS_ITS | Clinical Summary ---
Author Organization [facility] Address [address] [place] [place] [address] Care Team Providers Care Research Engineer Name Role Phone Unavailable Primary Care Provider [...] 90.7 kg (200 lb) 11/25/2024 1:52 PM CUSTOM PROTECTION OFFICER Height 177.8 cm (5' 10) 11/25/2024 1:52 PM CUSTOM PROTECTION OFFICER Body Mass Index 28.7 11/25/2024 1:52 PM CUSTOM PROTECTION OFFICER Plan of Treatment Health Maintenance Due Date [...] TEETH PER QUADRANT Routine 12/24/2024 8:00 AM CUSTOM PROTECTION OFFICER ADJUNCTIVE PRE-DIAGNOSTIC TEST THAT AIDS IN DETECTION OF MUCOSAL ABNORMALITIES Routine 12/24/2024 8:00 AM CUSTOM PROTECTION OFFICER [facility] CT CAPTURE AND INTERPRETATION WITH FIELD OF VIEW OF BOTH JAWS; WITH OR WITHOUT CRANIUM Routine 10/07/2024 8:00 AM CUSTOM PROTECTION OFFICER COMPREHENSIVE ORAL EVALUATION - NEW OR ESTABLISHED PATIENT Routine 10/07/2024 8:00 AM CUSTOM PROTECTION OFFICER Encounter for dental examination and cleaning without abnormal findings from Last 3 Months or Most Recently Relevant to Health Maintenance Insurance [facility]
--- OUTSIDE RECORDS SUMMARY | 2025-09-27 11:16 | XMS_ITS | Encounter Summary ---
Author Organization [facility] Address [address] [place] [address] Care Team Providers Care Activities Therapist Name Role Phone Unavailable Primary Care Provider Unavailabl e Prior Encounters Date Type Department Care Team Description 03/31/2025 8:00 AM CDT Office Visit [facility] [address] [place] [address] Mumtaz Yusuf [facility] 02/17/2025 Travel 02/17/2025 8:00 AM CDT Office Visit [facility] [address] [place] [address] Salma Perales, ERIBERTO Dental caries, unspecified (Primary Dx) 01/20/2025 Travel 01/20/2025 8:00 AM [employer] Office Visit [facility] [address] [place] [address] Salma Perales, ERIBERTO Dental caries, unspecified (Primary Dx) 01/06/2025 Travel 12/24/2024 Travel 12/24/2024 8:00 AM [employer] Office Visit [facility] [address] [place] [address] Mumtaz Yusuf [facility] 12/23/2024 Travel 12/23/2024 8:00 AM [employer] Office Visit [facility] [address] [place] [address] Salma Perales DDS 12/14/2024 Travel 12/14/2024 8:00 AM [employer] Office Visit [facility] [address] [place] [address] Gideon Gutierrez, DDS 12/08/2024 8:00 AM [employer] Office Visit [facility] [address] [place] [address] Salma Perales DDS Dental caries, unspecified (Primary Dx) 11/25/2024 Travel 11/25/2024 12:45 PM [employer] Office Visit [facility] [address] [place] [address] Fátima Lees, DDS 11/16/2024 8:00 AM [employer] Office Visit [facility] [address] [place] [address] Salma Perales, ANASTACIAS 11/02/2024 Travel 11/02/2024 8:00 AM [employer] Office Visit [facility] [address] [place] [address] Salma Perales DDS Dental caries, unspecified (Primary Dx) 10/07/2024 Travel 10/07/2024 8:00 AM [employer] Office Visit [facility] [address] [place] [address] Salma Perales DDS Dental caries, unspecified (Primary [...] 90.7 kg (200 lb) 11/25/2024 1:52 PM [employer] Height 177.8 cm (5' 10) 11/25/2024 1:52 PM [employer] Body Mass Index 28.7 11/25/2024 1:52 PM [employer] Plan of Treatment Not on file Procedures [...] THREE SURFACES, POSTERIOR Routine 01/20/2025 8:00 AM [employer] 5 DO RESIN-BASED COMPOSITE - TWO SURFACES, POSTERIOR Routine 01/20/2025 8:00 AM [employer] Dental caries, unspecified 4 MOD RESIN-BASED COMPOSITE - THREE SURFACES, POSTERIOR Routine 01/20/2025 8:00 AM [employer] Dental caries, unspecified ADJUNCTIVE PRE-DIAGNOSTIC TEST THAT AIDS IN DETECTION OF MUCOSAL ABNORMALITIES Routine 12/24/2024 8:00 AM [employer] UL ANTIBACT IRR/QUAD Routine 12/24/2024 8:00 AM [employer] 9 UL PERIODONTAL SCALING AND ROOT PLANING - ONE TO THREE TEETH PER QUADRANT Routine 12/24/2024 8:00 AM [employer] LL ANTIBACT IRR/QUAD Routine 12/24/2024 8:00 AM [employer] 19 LL PERIODONTAL SCALING AND ROOT PLANING - ONE TO THREE TEETH PER QUADRANT Routine 12/24/2024 8:00 AM [employer] UR ANTIBACT IRR/QUAD Routine 12/24/2024 8:00 AM [employer] 7,3 UR PERIODONTAL SCALING AND ROOT PLANING - ONE TO THREE TEETH PER QUADRANT Routine 12/24/2024 8:00 AM [employer] LR ORAL HYGIENE INSTRUCTIONS Routine 12/24/2024 8:00 AM [employer] LR PERIODONTAL SCALING AND ROOT PLANING - FOUR OR MORE TEETH PER QUADRANT Routine 12/24/2024 8:00 AM [employer] LR ANTIBACT IRR/QUAD Routine 12/24/2024 8:00 AM [employer] 6 CEMENT CROWN Routine 12/23/2024 8:00 AM [employer] NC X-RAY Routine 12/23/2024 8:00 AM [employer] NC X-RAY Routine 12/23/2024 8:00 AM [employer] 9 CEMENT CROWN Routine 12/23/2024 8:00 AM [employer] 8 CEMENT CROWN Routine 12/23/2024 8:00 AM [employer] 7 CEMENT CROWN Routine 12/23/2024 8:00 AM [employer] RECEMENT TEMPORARY Routine 12/14/2024 8: 00 AM [employer] 6 CROWN PFM POST Routine 12/08/2024 8:00 AM [employer] Dental caries, unspecified 9 CROWN PFM POST Routine 12/08/2024 8:00 AM [employer] Dental caries, unspecified 8 CROWN PFM POST Routine 12/08/2024 8:00 AM [employer] Dental caries, unspecified 7 CROWN PFM POST Routine 12/08/2024 8:00 AM [employer] Dental caries, unspecified OS CONSULT Routine 11/25/2024 12:45 PM [employer] 2 EXTRACTION, ERUPTED TOOTH REQUIRING REMOVAL OF BONE AND/OR SECTIONING OF TOOTH Routine 11/25/2024 12:45 PM [employer] COLLECTION AND APPLICATION OF AUTOLOGOUS BLOOD CONCENTRATE PRODUCT Routine 11/25/2024 12:45 PM [employer] 2 UR PRIMARY CLOSURE OF A SINUS PERFORATION Routine 11/25/2024 12:45 PM [employer] NC X-RAY Routine 11/16/2024 8:00 AM [employer] NC X-RAY Routine 11/16/2024 8:00 AM [employer] 11 CEMENT CROWN Routine 11/16/2024 8:00 AM [employer] 10 CEMENT CROWN Routine 11/16/2024 8:00 AM [employer] 11 CORE BUILDUP, INCLUDING ANY PINS WHEN REQUIRED Routine 11/02/2024 8:00 AM [employer] 10 CORE BUILDUP, INCLUDING ANY PINS WHEN REQUIRED Routine 11/02/2024 8:00 AM [employer] 11 CROWN PFM POST Routine 11/02/2024 8:0 0 AM [employer] Dental caries, unspecified 10 CROWN PFM POST Routine 11/02/2024 8:0 0 AM [employer] Dental caries, unspecified INTRAORAL PHOTO Routine 10/07/2024 8:00 AM [employer] INTRAORAL PHOTO Routine 10/07/2024 8:00 AM [employer] INTRAORAL PHOTO Routine 10/07/2024 8:00 AM [employer] INTRAORAL PHOTO Routine 10/07/2024 8:00 AM [employer] ADDITIONAL X-RAY Routine 10/07/2024 8:00 AM [employer] ADDITIONAL X-RAY Routine 10/07/2024 8:00 AM [employer] ADDITIONAL X-RAY Routine 10/07/2024 8:00 AM [employer] ADDITIONAL X-RAY Routine 10/07/2024 8:00 AM [employer] ADDITIONAL X-RAY Routine 10/07/2024 8:00 AM [employer] SINGLE X-RAY Routine 10/07/2024 8:00 AM [employer] BITEWINGS - FOUR RADIOGRAPHIC IMAGES Routine 10/07/2024 8:00 AM [employer] [place] [facility] CAPTURE AND INTERPRETATION WITH FIELD OF VIEW OF BOTH JAWS; WITH OR WITHOUT CRANIUM Routine 10/07/2024 8:00 AM [employer] COMPREHENSIVE ORAL EVALUATION - NEW OR ESTABLISHED PATIENT Routine 10/07/2024 8:00 AM [employer] Encounter for dental examination and cleaning without abnormal findings 30 B [place]ALGAM FILLING Routine 10/07/2024 12:00 AM [employer] 28 B AMAL[place] FILLING Routine 10/07/2024 12:00 AM [employer] 19 DOL [place] FILLING Routine 4 12:00 AM [employer] 19 B COMPOSITE FILLING Routine 4 12:00 AM [employer] 18 B [place]AL[place] FILLING Routine 10/07/2024 12:00 AM [employer] 13 MOD [place]AL[place]AM FILLING Routine 4 12:00 AM [employer] 12 B COMPOSITE FILLING Routine 4 12:00 AM [employer] 12 MOD [place] FILLING Routine 4 12:00 AM [employer] 11 MIDF COMPOSITE FILLING Routine 2023 12:00 AM [employer] 10 MDF COMPOSITE FILLING Routine 12:00 AM [employer] 9 MDF COMPOSITE FILLING Routine 10/07/20 24 12:00 AM [employer] 8 MDF COMPOSITE FILLING Routine 10/07/20 24 12:00 AM [employer] 7 MDF COMPOSITE FILLING Routine 10/07/20 12:00 AM [employer] 5 B COMPOSITE FILLING Routine 10/07/2024 12:00 AM [employer] 3 DO AMAL[place] FILLING Routine 10/07/2024 12:00 AM [employer] 6 MIDF COMPOSITE FILLING Routine 12:00 AM [employer] Visit Diagnoses Diagnosis Start Date Dental caries, unspecified 10/07/2024 Encounter for dental examination and cleaning without abnormal findings 10/07/2024 Dental caries, unspecified 11/02/2024 Dental caries, unspecified 12/08/2024 Dental caries, unspecified 01/20/2025 Dental caries, unspecified 02/17/2025 [facility]
== END 2025-09-27 12:45 | disposition home or self-care (01) ==
PROVIDERS: Emergency Medicine; PCP Nurse Practitioner
DX: I10 Essential (primary) hypertension (principal); R42 Dizziness and giddiness; R31.9 Hematuria, unspecified; F17.210 Nicotine dependence, cigarettes, uncomplicated; Z90.49 Acquired absence of other specified parts of digestive tract; Z79.899 Other long term (current) drug therapy
CPT/HCPCS: 36415; 71046; 74176; 80053; 81001; 85025; 93005; 99284